=== PATIENT | female | born 1960 | race Caucasian/White ===

== ENCOUNTER 2021-05-03 14:01 | Inpatient (IN) | payer OTHER, SELFPAY ==
--- NOTE | 2021-05-03 14:09 | ED_ITS ---
HPI - Psych General Chief Complaint: Psychiatric Symptoms Stated Complaint: HI/SI Time Seen by Provider: 05/03/21 14:09 Source: patient and EMS Mode of arrival: EMS Limitations: no limitations History of Present Illness MD complaint: suicidal ideation and feels depressed Onset (ago): week(s) Duration: constant and getting worse History of same: Yes Relieving factors: none Exacerbating factors: other (not sleeping) Associated psychiatric symptoms: depression and suicidal ideation Associated symptoms: other (states she was talking to her mother) Treatments prior to arrival: placed on mental health hold If self harm: admits thoughts of self harm Related Data Home Medications Medication Instructions Recorded Confirmed omeprazole 20 mg capsule,delayed 20 mg PO BID 07/28/20 release bupropion HCl 100 mg tablet,12 hr 100 mg PO QAM 09/01/20 sustained-release clonidine HCl 0.1 mg tablet mg PO 09/01/20 duloxetine 60 mg capsule,delayed 120 mg PO DAILY 09/01/20 release ibuprofen 800 mg tablet 800 mg PO Q8H PRN 09/01/20 Previous Rx's Medication Instructions Recorded clotrimazole-betamethasone 1 1 appl TOPICAL BID 15 Days #15 g 09/01/20 %-0.05 % topical cream gabapentin 800 mg tablet 800 mg PO TID #90 tab 03/18/21 lisinopril 20 1 tab PO DAILY #30 tab 03/18/21 mg-hydrochlorothiazide 12.5 mg tablet omeprazole 20 mg capsule,delayed 20 mg PO BID #60 cap 03/18/21 release sennosides 8.6 mg tablet (Mirta-elizabeth) 17.2 mg PO BEDTIME #60 tab 03/18/21 zolpidem 10 mg tablet 10 mg PO BEDTIME PRN 30 Days #30 03/18/21 tab aspirin 81 mg tablet,delayed 81 mg PO DAILY #90 tab 04/21/21 release Allergies Allergy/AdvReac Type Severity Reaction Status Date / Time duloxetine Allergy Severe anaphylaxis Verified 09/01/20 10:10 aspirin Allergy Unknown but can Verified 09/01/20 10:10 take ibuprofen pregabalin Allergy Unknown unknown Verified 09/01/20 10:10 Review of Systems Review of Systems: Constitutional : No Fever, No Chills ENT/Mouth : No Ear Pain, No Nasal Congestion, No sore throat Eyes: No Eye Pain, No Swelling, No Redness Cardiovascular : No Chest Pain, No SOB Respiratory : No Cough, No Sputum, No Dyspnea Gastrointestinal : No Nausea, No Vomiting, No Diarrhea, No Hematochezia, No Melena Genitourinary : No Dysuria, No Urinary Frequency, No Hematuria Musculoskeletal : No Myalgias Skin : No Skin Lesions, No rash Neuro : No Weakness, No Numbness, No Paresthesias, No Dizziness, No Headache Psych : positive Anxiety, positive Depression, positive SI no HI, pos vis hallucinations Heme/Lymph: No Lymphadenopathy Endocrine : No Polyuria, No Polydipsia All other systems reviewed and are negative [facility] Past Medical History Attestation statement: The following information was validated with the patient. Medical History Encounter for medication review GERD (gastroesophageal reflux disease) Hypertension Insomnia Intertrigo Surgical History History of endometrial ablation History of tubal ligation Family History Family History Father No problems noted. Mother No problems noted. Brother Congenital cardiomyopathy Sister Cardiomyopathy Social History Social History Alcohol intake: never Cigarettes Per Day: 10 Advance Directives: No Advance Directives Information Provided: No Physical Exam Vital Signs: Vital Signs: Last Vital Signs Temp 98.0 F 05/03/21 14:14 Pulse 89 05/03/21 14:14 Resp 16 05/03/21 14:14 BP 127/67 05/03/21 14:14 Pulse Ox 94 05/03/21 14:14 Body Mass Index 41.1 Appearance: Alert. Oriented X3. Anxious, tearful, mild acute distress. Eyes: Pupils equal, round and reactive to light. ENT: Pharynx normal. Neck: Normal inspection. Neck supple. CVS: Normal heart rate and rhythm. Pulses normal. Respiratory: No respiratory distress. Breath sounds normal. Abdomen: Soft and non-tender. Skin: Skin warm and dry. Normal skin color. Normal skin turgor. Extremities: No lower extremity edema. No calf ttp Neuro: Oriented X 3. No motor deficit. No sensory deficit. CN2-12 intact Psych: tearful, pos SI, no HI, states she saw her mom but she knows that's not real Course Course Course Narrative: vaccinated 3 months ago with Pfizer + COVID asymptomatic Physician observation started at 340pm Patient placed in physician observation because the patient needed more time to have BHN assessment given her mental health complaints. At the time observation was started the patient's vitals were stable, patient is alert and oriented much more calm, Neuro: nonfocal, CV RRR, Lungs clear signed out pending labs and BHN consult MDM - Psych MDM Narrative Medical decision making narrative: 60 yo female with hx of GERD, HTN, insomnia on ambien comes in with c/o SI and HI towards police officers, she notes she is not sleeping and then mentioned her mother was with her. At this time denies substance abuse. Will need labs, N consult Lab Data Labs: Lab Results 05/03/21 05/03/21 Range/Units 14:55 14:58 Urine Opiates Screen Not Detected (Not Detect) Urine Fentanyl Screen POSITIVE H (Not Detect) Ur Barbiturates Screen Not Detected (Not Detect) Ur Phencyclidine Scrn Not Detected (Not Detect) Ur Amphetamines Screen Not Detected (Not Detect) U Benzodiazepines Scrn Not Detected (Not Detect) Urine Cocaine Screen POSITIVE H (Not Detect) U Marijuana (THC) Screen Not Detected (Not Detect) COVID-19 (DAMON) Positive A (Negative) COVID-19 Clin Com See Note Discharge Plan Discharge Clinical Impression: COVID-19, Polysubstance abuse Depression Qualifiers: Depression Type: major depressive disorder Major depression recurrence: recurrent Active/Remission status: currently active Major depression episode severity: moderate Qualified Code(s): F33.1 - Major depressive disorder, recurrent, moderate Prescriptions: No Action omeprazole 20 mg capsule,delayed release(DR/EC) 20 mg PO BID RF: 0 zolpidem 10 mg tablet 10 mg PO BEDTIME PRN (Reason: insomnia) 30 Days Qty: 30 RF: 1 sennosides [Mirta-elizabeth] 8.6 mg tablet 17.2 mg PO BEDTIME Qty: 60 RF: 3 gabapentin 800 mg tablet 800 mg PO TID Qty: 90 RF: 1 lisinopril-hydrochlorothiazide 20-12.5 mg tablet 1 tab PO DAILY Qty: 30 RF: 1 omeprazole 20 mg capsule,delayed release(DR/EC) 20 mg PO BID Qty: 60 RF: 1 aspirin 81 mg tablet,delayed release (DR/EC) 81 mg PO DAILY Qty: 90 RF: 0 duloxetine 60 mg capsule,delayed release(DR/EC) 120 mg PO DAILY RF: 0 bupropion HCl 100 mg tablet sustained-release 12 hr 100 mg PO QAM RF: 0 ibuprofen 800 mg tablet 800 mg PO Q8H PRNRF: 0 clonidine HCl 0.1 mg tablet PO RF: 0 clotrimazole-betamethasone 1-0.05 % cream 1 appl topical BID 15 Days Qty: 15 RF: 0
[2021-05-03 14:14] VITALS: BP 127/67; BP 190/110; PULSE 89; PULSE 95; RESP 16; TEMP 36.7; O2SAT 94; O2SAT 97; BMI 41.1
--- NOTE | 2021-05-03 14:41 | PC.NURSE ---
pt states that she has had the [employer] vaccine during triage.
--- NOTE | 2021-05-03 14:43 | PC.NURSE ---
pt here for crisis, si/hi, calm and cooperative w change management consultant, ambulates w steady gait.
[2021-05-03 15:11] LABS: COVID-19 Test Positive (Negative); IDNOW Serial# 08D9AD1C
[2021-05-03 15:27] LABS: Amphetamine Screen Urine Not Detected (Not Detect); Barbiturates, Urine Not Detected (Not Detect); Cannabinoid Screen Urine Not Detected (Not Detect); Cocaine Screen Urine POSITIVE (Not Detect); Fentanyl, urine POSITIVE (Not Detect); Opiate Screen Urine Not Detected (Not Detect); Phencyclidine Screen Urine Not Detected (Not Detect)
[2021-05-03 15:34] LABS: Benzodiazepines Screen Urine Not Detected (Not Detect)
[2021-05-03] MEDS: Acetaminophen 325 MG TABLET 650 MG PO ×2 (17:29→23:36)
[2021-05-03 18:42] VITALS: BP 102/65; PULSE 71; RESP 16; TEMP 36.9; O2SAT 95
[2021-05-03 18:49] LABS: MANUAL DIFF FLAG NO
[2021-05-03 18:53] LABS: Basophils Percent Auto 0.4 % (0-2); Eosinophils Absolute Auto 0.1 X10*3/uL (0.0-0.4); Eosinophils Percent Auto 1.2 % (0-4); Hematocrit 36.5 % (37-47); Hemoglobin 11.9 g/dl (12.0-16.0); Imm Gran Abs Auto 0.04 X10*3/uL (0.00-0.03); Imm Gran Pct Auto 0.5 % (0.0-0.4); Lymphocytes Absolute Auto 2.7 X10*3/uL (1.2-4.9); Lymphocytes Percent Auto 34.8 % (20-40); Mean Corpuscular HGB Conc 32.6 g/dl (31.0-35.0); Mean Corpuscular Hemoglobin 30.5 pg (27.0-33.0); Mean Corpuscular Volume 93.6 fL (80-98); Mean Platelet Volume 9.9 fL (9.4-12.3); Monocytes Absolute Auto 0.5 X10*3/uL (0.1-1.2); Monocytes Percent Auto 6.1 % (2-11); Neutrophils Absolute Auto 4.5 X10*3/uL (2.0-8.3); Platelet Count 238 X10*3/uL (160-400); Red Cell Distribution Width 13.6 % (11.0-16.0); White Blood Count 7.8 X10*3/uL (4.8-10.8)
[2021-05-03 19:11] LABS: Ethanol < 10 mg/dL
[2021-05-03 19:14] LABS: Alanine Aminotransferase 21 U/L (0-31); Albumin Level 3.7 g/dL (3.5-5.0); Alkaline Phosphatase 102 U/L (39-117); Anion Gap 11 (12-20); Aspartate Amino Transferase 22 U/L (5-31); Bilirubin Direct < 0.2 mg/dL (0.0-0.5); Bilirubin Total 0.2 mg/dL (0.0-1.0); Blood Urea Nitrogen 12 mg/dL (9-16); Calcium 8.9 mg/dL (8.4-10.2); Carbon Dioxide 29 mmol/L (22-29); Chloride 103 mmol/L (96-108); Creatinine Clr Calc Pharmacy 69.7; Estimated Glomerular Filt Rate 53; Glucose Random 105 mg/dL (60-115); Potassium 3.3 mmol/L (3.3-5.1); Sodium 140 mmol/L (135-145); Total Protein 6.2 g/dL (6.5-8.0)
--- NOTE | 2021-05-03 19:57 | PC.NURSE ---
this nurse spoke with Stevan at [facility] crisis to provide pt information for intake. [facility] aware that pt is covid positive and stated evaluation will most likely be done on zoom/video chat. [facility] has no other questions or concerns at this time.
[2021-05-03 20:03] VITALS: RESP 16
[2021-05-03 23:01] VITALS: BP 121/72; PULSE 68; RESP 16; TEMP 36.7; O2SAT 96
[2021-05-04] VITALS (9 sets, daily range): BP systolic 149–196; BP diastolic 80–111; PULSE 68–84; RESP 16–18; TEMP 36.7–37; O2SAT 97–99
[2021-05-04] MEDS: Zolpidem Tartrate 5 MG TABLET 10 MG PO ×2 (00:26→21:45)
--- NOTE | 2021-05-04 08:20 | PC.NURSE ---
SPOKE WITH N REGARDING PATIENT BEING SEEN, N WILL CALL BACK WITH MORE INFORMATION.
[2021-05-04] MEDS: lisinopriL 20 MG TABLET PO (10:40)
[2021-05-04] MEDS: buPROPion HCL 100 MG TABLET PO (10:42)
[2021-05-04] MEDS: hydroCHLOROthiazide 12.5 MG TABLET PO (10:43)
[2021-05-04] MEDS: Aspirin Enteric Coated 81 MG TABLET.DR PO (10:43)
[2021-05-04] MEDS: Gabapentin 400 MG CAPSULE 800 MG PO ×2 (10:43→21:01)
--- NOTE | 2021-05-04 13:14 | MHC.CARE ---
CARE Team conducts a statewide bedsearch, search is exhausted for today. CARE Team will follow up with a Mental Status assessment tomorrow. Consult was placed with psychiatry to have a medication evaluation.
--- NOTE | 2021-05-04 15:42 | HO.ADDICTCON ---
History of Present Illness Date of Service: 05/04/2021 Chief Complaint: HI/SI Reason for Consult: methadone dosing Requesting physician: Latanya Tierney Discussed with referring provider: Yes Sources of Information: chart reviewed and crisis/core team assessment reviewed Additional Sources of Information: [facility] HPI Narrative: Patient is a 60 year old female currently awaiting psychiatric admission for AH, SI and HI. patient has been in the ED for approx 24 hours, and this afternoon reported to RN that she did not receive her methadone--methadone is not patient's medication list, and due to time of day, unable to call OTP to confirm dose reported by patient (82 mg). Consult requested for recommendations. of note, patient COVID + and sleeping comfortably so information obtained from chart and RN Per RN, patient has not shown or reported any sx of withdrawal. UDS was positive for cocaine and fentanyl. Patient initially denied substance use, then acknowledged that she has used cocaine more recently. No mention of methadone. Past Psychiatric History: pending psychiatric admission. Please see CARE team eval for further details Review of Systems Review of Systems Yes Unobtainable due to mental status (patient asleep ) Diagnostics Vital Signs (24Hr): Vital Signs - 24 hr 05/03/21 18:42 05/03/21 20:03 05/03/21 23:01 Temperature 98.5 F 98.1 F Pulse Rate 71 68 Respiratory Rate 16 16 16 Blood Pressure 102/65 121/72 Pulse Oximetry 95 96 05/04/21 01:10 05/04/21 01:28 05/04/21 05:54 Temperature Pulse Rate Respiratory Rate 16 16 16 Blood Pressure Pulse Oximetry 05/04/21 08:00 05/04/21 10:40 Temperature Pulse Rate 68 Respiratory Rate 16 Blood Pressure 162/80 H Pulse Oximetry Body Mass Index 41.1 Labs Results: 05/03/21 18:40 05/03/21 18:40 Labs: Laboratory Results - last 48 hr 05/03/21 05/03/21 05/03/21 14:55 14:58 18:40 WBC 7.8 RBC 3.90 L Hgb 11.9 L Hct 36.5 L MCV 93.6 MCH 30.5 MCHC 32.6 RDW 13.6 Plt Count 238 MPV 9.9 Immature Gran % (Auto) 0.5 H Neut % (Auto) 57.0 Lymph % (Auto) 34.8 [place] % (Auto) 6.1 Eos % (Auto) 1.2 Baso % (Auto) 0.4 Lymph # (Auto) 2.7 [place] # (Auto) 0.5 Eos # (Auto) 0.1 Baso # (Auto) 0.0 Abs Immat Gran (auto) 0.04 H Absolute Neuts (auto) 4.5 Absolute Nucleated RBC 0.000 Nucleated RBC % (auto) 0.0 Sodium Potassium Chloride Carbon Dioxide Anion Gap BUN Creatinine Estim Creat Clear Calc Estimated GFR Random Glucose Calcium Total Bilirubin Direct Bilirubin AST ALT Alkaline Phosphatase Total Protein Albumin Urine Opiates Screen Not Detected Urine Fentanyl Screen POSITIVE H Ur Barbiturates Screen Not Detected Ur Phencyclidine Scrn Not Detected Ur Amphetamines Screen Not Detected U Benzodiazepines Scrn Not Detected Urine Cocaine Screen POSITIVE H U Marijuana (THC) Screen Not Detected Ethyl Alcohol COVID-19 (DAMON) Positive A COVID-19 [employer] Com See Note 05/03/21 05/03/21 18:40 18:40 WBC RBC Hgb Hct MCV MCH MCHC RDW Plt Count MPV Immature Gran % (Auto) Neut % (Auto) Lymph % (Auto) [place] % (Auto) Eos % (Auto) Baso % (Auto) Lymph # (Auto) [place] # (Auto) Eos # (Auto) Baso # (Auto) Abs Immat Gran (auto) Absolute Neuts (auto) Absolute Nucleated RBC Nucleated RBC % (auto) Sodium 140 Potassium 3.3 Chloride 103 Carbon Dioxide 29 Anion Gap 11 L BUN 12 Creatinine 1.06 Estim Creat Clear Calc 69.7 Estimated GFR 53 Random Glucose 105 Calcium 8.9 Total Bilirubin 0.2 Direct Bilirubin < 0.2 AST 22 ALT 21 Alkaline Phosphatase 102 Total Protein 6.2 L Albumin 3.7 Urine Opiates Screen Urine Fentanyl Screen Ur Barbiturates Screen Ur Phencyclidine Scrn Ur Amphetamines Screen U Benzodiazepines Scrn Urine Cocaine Screen U Marijuana (THC) Screen Ethyl Alcohol < 10 COVID-19 (DAMON) COVID-19 Clin Com Mental Status Exam Mental Status Exam Narrative: patient asleep Medications Medications Current Medications Generic Name Dose Route Start Last Admin Trade Name Freq PRN Reason Stop Dose Admin Aspirin 81 mg 05/04/21 09:00 05/04/21 10:43 Aspirin Enteric Coated 81 Mg Tablet. PO 81 mg DAILY ZOHREH Administration Bupropion HCl 100 mg 05/04/21 09:00 05/04/21 10:42 Bupropion Hcl 100 Mg Tablet PO 100 mg DAILY ZOHREH Administration Gabapentin 800 mg 05/04/21 00:15 05/04/21 10:43 Gabapentin 400 Mg Capsule PO 800 mg TID ZOHREH Administration Hydrochlorothiazide 12.5 mg 05/04/21 09:00 05/04/21 10:43 Hydrochlorothiazide 12.5 Mg Tablet PO 12.5 mg DAILY ZOHREH Administration Ibuprofen 800 mg 05/04/21 00:08 Ibuprofen 800 Mg Tablet PO Q8H PRN Pain, Mild Lisinopril 20 mg 05/04/21 09:00 05/04/21 10:40 Lisinopril 20 Mg Tablet PO 20 mg DAILY ZOHREH Administration Non-Formulary Medication 1 appl 05/04/21 00:15 Clotrimazole-Betamethasone TOPICAL BID ZOHREH Zolpidem Tartrate 10 mg 05/04/21 00:08 05/04/21 00:26 Zolpidem Tartrate 5 Mg Tablet PO 10 mg BEDTIME PRN Administration insomnia Allergies Allergies Allergy/AdvReac Type Severity Reaction Status Date / Time duloxetine Allergy Severe anaphylaxis Verified 09/01/20 10:10 aspirin Allergy Unknown but can Verified 09/01/20 10:10 take ibuprofen pregabalin Allergy Unknown unknown Verified 09/01/20 10:10 Assessment & Plan Assessment & Plan (1) Depression: Qualifiers: Active/Remission status: currently active Depression Type: major depressive disorder Major depression episode severity: moderate Major depression recurrence: recurrent Qualified Code(s): F33.1 - Major depressive disorder, recurrent, moderate Status: Acute Code(s): F32.9 - Major depressive disorder, single episode, unspecified Assessment and Plan: please monitor for withdrawal sx using the COWS. If patient begins to report sx, may administer methadone 10-15mg and re-eval in 4 hours and give another 10mg IF still needed. (total of 20-25mg) monitor for sedation RSRN will call [facility] in AM to verify dose 25 mins Greater than 50% of the session was spent on counseling and/or coordination of care PMFSH Past Medical History Medical History Encounter for medication review GERD (gastroesophageal reflux disease) Hypertension Insomnia Intertrigo Family History Family History Father No problems noted. Mother No problems noted. Brother Congenital cardiomyopathy Sister Cardiomyopathy Surgical History Surgical History History of endometrial ablation History of tubal ligation Social History Social History Alcohol intake: never Cigarettes Per Day: 10 Advance Directives: No Advance Directives Information Provided: No Healthcare Proxy: No Guardian: No
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
[2021-05-04] MEDS: methADONE HCl 20 MG/2 ML ORAL.CONC 15 MG PO (18:57)
[2021-05-04] MEDS: cloNIDine HCL 0.1 MG TABLET PO (21:08)
[2021-05-04] MEDS: ARIPiprazole 5 MG TABLET PO (21:45)
--- NOTE | 2021-05-04 21:50 | PC.NURSE ---
This RN to bedside. Pt aaox4, calm and cooperative. Pt endorses thoughts of wishing she were , and thinking if she were to attempt to kill herself, she would use a gun which she could probably easily purchase in her neighborhood. Pt assured that she is safe in ED, pt expresses her appreciation. Pt medicated per MAR, requested her ambien for sleep and medicated with it. Pt offers no complaints of pain/discomfort. Pt remains with 1:1 sitter. Pt reports that she contacted a friend earlier in the day to go to her home and check on her dog, but she was unable to confirm if the person did this as their phone . This RN offers to get pt's phone for pt to contact said friend but pt reports well I'm sure he did it because I know he would, and I know he heard me. I just didn't get to hear back about how my dog is but it's no real emergency. That can definitely wait until tomorrow morning. Pt's belongings are in locker 12 per belongings sheet.
[2021-05-05] VITALS (8 sets, daily range): BP systolic 144–188; BP diastolic 70–119; PULSE 76–87; RESP 16–20; TEMP 36.6; O2SAT 96–97
--- NOTE | 2021-05-05 | ECG_ITS ---
Test Reason : POSITIVE FOR COCAINE Blood Pressure : / mmHG Vent. Rate : 077 BPM Atrial Rate : 077 BPM P-R Int : 180 ms QRS Dur : 082 ms QT Int : 404 ms P-R-T Axes : 058 -13 052 degrees QTc Int : 457 ms Normal sinus rhythm Nonspecific ST abnormality Abnormal ECG When compared with ECG of 14-MAR-2020 20:03, No significant change was found Referred By: Latanya Tierney Electronically Signed By:JOANNE MESSINA
--- NOTE | 2021-05-05 00:10 | PC.NURSE ---
Pt transferred from room 13 into room 2. Sitter at bedside.
--- NOTE | 2021-05-05 00:31 | PC.NURSE ---
Report given to Karma MCCALL
--- NOTE | 2021-05-05 06:11 | PC.NURSE ---
Sitter remains at bedside. Pt sleeping through the night without difficulty. Visible chest rise noted. Continue to monitor.
[2021-05-05] MEDS: buPROPion HCL 100 MG TABLET PO (09:25)
[2021-05-05] MEDS: DULoxetine HCl 60 MG CAPSULE.DR PO (09:25)
[2021-05-05] MEDS: ARIPiprazole 5 MG TABLET PO (09:25)
[2021-05-05] MEDS: Gabapentin 400 MG CAPSULE 800 MG PO ×3 (09:26→20:29)
[2021-05-05] MEDS: lisinopriL 20 MG TABLET PO (09:26)
[2021-05-05] MEDS: cloNIDine HCL 0.1 MG TABLET PO ×2 (09:28→20:27)
[2021-05-05] MEDS: Aspirin Enteric Coated 81 MG TABLET.DR PO (09:28)
[2021-05-05] MEDS: hydroCHLOROthiazide 12.5 MG TABLET PO (09:28)
--- NOTE | 2021-05-05 09:55 | MHC.RECOVRN ---
Methadone dose verified by t/w. Pt received 82 mg at [facility] on 05/02 and received 2 take homes. Provider aware.
[2021-05-05] MEDS: methADONE HCl 20 MG/2 ML ORAL.CONC 80 MG PO (11:26)
--- NOTE | 2021-05-05 15:58 | PC.NURSE ---
Second Admission Risk Assessment form done to add Risk Factor of Substance Abuse
[2021-05-05] MEDS: chlorproMAZINE HCl 25 MG TABLET 50 MG PO ×2 (16:36→20:29)
--- NOTE | 2021-05-05 17:12 | PC.NURSE ---
Pt admitted from [facility] after feeling unsafe and depressed. Pt felt as though someone was with her and mentioned her mother who is . Pt brought in by police via section 12. Pt tested positive in ED for COVID (vaccinated x 2 doses) but is aymptomatic. Pt also tested positive for Fentanyl and Cocaine but denies using either. Pt transferred to unit by Shira Lake RN, pt agrees to remain in her room. Pt states she understands the CV but will consider signing a 3 day notice as she doesn't feel it will be helpful for her to be here. Pt denies SI/HI upon admission. Admission paperwork and consents reviewed verbally with patient.
[2021-05-05] MEDS: Ibuprofen 800 MG TABLET PO (20:27)
[2021-05-05] MEDS: Zolpidem Tartrate 5 MG TABLET 10 MG PO (20:29)
[2021-05-06 02:00] VITALS: TEMP 36.8; O2SAT 97
[2021-05-06] MEDS: hydrOXYzine HCL 25 MG TABLET PO (02:25)
[2021-05-06] MEDS: traZODone HCL 50 MG TABLET PO (02:25)
[2021-05-06] MEDS: DULoxetine HCl 60 MG CAPSULE.DR PO (08:32)
[2021-05-06] MEDS: Gabapentin 400 MG CAPSULE 800 MG PO (08:32)
[2021-05-06] MEDS: Aspirin Enteric Coated 81 MG TABLET.DR PO (08:32)
[2021-05-06] MEDS: buPROPion HCL 100 MG TABLET PO (08:33)
[2021-05-06] MEDS: ARIPiprazole 5 MG TABLET PO (08:33)
[2021-05-06 08:40] VITALS: BP 118/64
[2021-05-06] MEDS: cloNIDine HCL 0.1 MG TABLET PO (08:40)
[2021-05-06] MEDS: lisinopriL 20 MG TABLET PO (08:40)
[2021-05-06] MEDS: methADONE HCl 20 MG/2 ML ORAL.CONC 80 MG PO (08:45)
[2021-05-06 10:14] VITALS: BP 118/64; TEMP 36.2
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
[2021-05-06 13:09] LABS: MANUAL DIFF FLAG NO
[2021-05-06 13:13] LABS: Basophils Percent Auto 0.3 % (0-2); Eosinophils Absolute Auto 0.1 X10*3/uL (0.0-0.4); Eosinophils Percent Auto 1.8 % (0-4); Hematocrit 39.4 % (37-47); Hemoglobin 12.8 g/dl (12.0-16.0); Imm Gran Abs Auto 0.05 X10*3/uL (0.00-0.03); Imm Gran Pct Auto 0.7 % (0.0-0.4); Lymphocytes Absolute Auto 2.1 X10*3/uL (1.2-4.9); Mean Corpuscular HGB Conc 32.5 g/dl (31.0-35.0); Mean Corpuscular Hemoglobin 30.2 pg (27.0-33.0); Mean Corpuscular Volume 92.9 fL (80-98); Mean Platelet Volume 10.2 fL (9.4-12.3); Monocytes Absolute Auto 0.3 X10*3/uL (0.1-1.2); Monocytes Percent Auto 4.9 % (2-11); Neutrophils Absolute Auto 4.1 X10*3/uL (2.0-8.3); Neutrophils Percent Auto 61.3 % (45-73); Platelet Count 247 X10*3/uL (160-400); Red Blood Count 4.24 X10*6/uL (4.20-5.50); Red Cell Distribution Width 13.7 % (11.0-16.0); White Blood Count 6.7 X10*3/uL (4.8-10.8)
[2021-05-06 13:21] LABS: D Dimer 216 NG/ML
[2021-05-06 14:03] LABS: Alanine Aminotransferase 19 U/L (0-31); Albumin Level 3.5 g/dL (3.5-5.0); Alkaline Phosphatase 88 U/L (39-117); Anion Gap 17 (12-20); Aspartate Amino Transferase 18 U/L (5-31); Bilirubin Total 0.3 mg/dL (0.0-1.0); Blood Urea Nitrogen 25 mg/dL (9-16); C Reactive Protein 0.63 mg/dL (< or = 0.50); Calcium 10.2 mg/dL (8.4-10.2); Carbon Dioxide 29 mmol/L (22-29); Chloride 103 mmol/L (96-108); Creatinine Clr Calc Pharmacy 50.6; Estimated Glomerular Filt Rate 37; Glucose Random 146 mg/dL (60-115); Lactate Dehydrogenase 164 U/L (122-220); Potassium 3.8 mmol/L (3.3-5.1); Sodium 145 mmol/L (135-145); Total Protein 5.8 g/dL (6.5-8.0)
[2021-05-06 14:07] LABS: Procalcitonin 0.02 ng/mL
[2021-05-06 15:13] LABS: Ferritin 40 ng/mL (10-250)
== END 2021-05-06 12:15 | disposition other institution (70) | DRG 751 ==
LOC: HO.ED 14:27 → HO.PADLT16 05-05 13:09
PROVIDERS: Family Medicine; Admitting Provider Psychiatry & Neurology Psychiatry; Emergency Provider Emergency Medicine; PCP Hospitalist; Visit Provider Psychiatry & Neurology Psychiatry
DX: F32.3 Major depressive disorder, single episode, severe with psychotic features (principal); U07.1 COVID-19; R45.851 Suicidal ideations; F14.20 Cocaine dependence, uncomplicated; F10.20 Alcohol dependence, uncomplicated; G47.00 Insomnia, unspecified; F11.20 Opioid dependence, uncomplicated; K21.9 Gastro-esophageal reflux disease without esophagitis; Z87.891 Personal history of nicotine dependence; Z88.6 Allergy status to analgesic agent; Z79.82 Long term (current) use of aspirin; Z79.899 Other long term (current) drug therapy
CPT/HCPCS: 36415; 80048; 80053; 80076; 80307; 82077; 82728; 83615; 84145; 85025; 85379; 86140; 87635; 93005; 99285

== ENCOUNTER 2021-05-06 12:39 | Inpatient (IN) | payer OTHER, SELFPAY ==
[2021-05-06] VITALS (7 sets, daily range): BP systolic 84–126; BP diastolic 50–65; PULSE 62–97; RESP 19–20; TEMP 36.4–37.2; O2SAT 95–98
--- NOTE | ~2021-05-06 | XR_ITS ---
EXAMINATION: XR CHEST CLINICAL INFORMATION: Covid 19. COMPARISON: None TECHNIQUE: Frontal view of the chest was obtained. FINDINGS: The lungs are well-expanded with lingular atelectasis. Rest of lungs are clear. The heart size and pulmonary vascularity is normal. No gross bony abnormality seen. XR/XR chest 1V IMPRESSION: Small lingular atelectasis.
--- NOTE | 2021-05-06 13:35 | PM.IMHP ---
History of Present Illness Date of Service: 05/06/21 Chief Complaint: hypoxia 60 yo M with HTN, depression with psychotic features, and severe cocaine/alcohol/opioid use disorder, on methadone, admitted to inpatient psychiatry unit on 05/04/21 on section 12 after found by police with SI with plan to kill herself with a gun and with visual and auditory hallucinations. Urine toxicology positive for fentanyl and cocaine. Patient was diagnosed with COVID-19 on 05/03/21 in the ED, despite having had 2 doses of the Pfizer vaccine in December. She has been feeling ill for weeks but doesn't really give a defined date as to when dyspnea and cough started, but she does complain of these symptoms now, along with fatigue. The ED physician noted that she was asymptomatic during evaluation on 05/03/21. Currently, she is in a private room at one end of the psychiatry unit. She was found to have SaO2 86% on RA this morning and thus we were called to assess the patient. I confirmed RA SaO2 of 86-87% and thus arranged for the patient to be transferred to our inpatient service. She denies fever or chest pain. Review of Systems Review of Systems: Yes all other systems are reviewed and are negative [facility] Medical History Encounter for medication review GERD (gastroesophageal reflux disease) Hypertension Insomnia Intertrigo Family History Father No problems noted. Mother No problems noted. Brother Congenital cardiomyopathy Sister Cardiomyopathy Surgical History History of endometrial ablation History of tubal ligation Social History Household Members: None Housing: Apartment Do you presently have visiting nurse or other home services: No Alcohol intake: never Patient Tobacco Use Status: Former Tobacco user Quit Date: 2 weeks ago Tobacco use type: Cigarette Cigarettes Per Day: 10 Patient Interested in Nicotine Replacement: No Patient Given Instructions on How to Stop Smoking: No Second Hand Smoke Exposure: No Use of substances other than those prescribed or required for medical reasons: No Substance Use Type: Crack/Cocaine and Opiates Currently Displaying Signs/Symptoms of Drug Intoxication Withdrawal: No Any prior treatment program specific to substance use: No Have you been hit, kicked, punched, or otherwise hurt by someone within the past year? If so, by whom?: No Do you feel safe in your current relationship?: No Current Relationship Is there a partner from a previous relationship who is making you feel unsafe now?: No Are you made to feel afraid or neglected: No Advance Directives: No Advance Directives Information Provided: Yes Do you have thoughts of harming others: None Do you have a plan to hurt others: No Plan Recently lost weight without trying: No Nutrition Risks: No Nutritional Risk Patient : No : No Poor oral hygiene: No service: No Sexual orientation: Did not discuss. Meds Allergies Allergy/AdvReac Type Severity Reaction Status Date / Time duloxetine Allergy Severe anaphylaxis Verified 09/01/20 10:10 aspirin Allergy Unknown but can Verified 09/01/20 10:10 take ibuprofen pregabalin Allergy Unknown unknown Verified 09/01/20 10:10 Active Medications: Current Medications Generic Name Dose Route Start Last Admin Trade Name Freq PRN Reason Stop Dose Admin Acetaminophen 650 mg 05/06/21 13:05 Acetaminophen 325 Mg Tablet PO Q6H PRN Pain, Mild (Pain Scale 1-3) Dexamethasone Sodium Phosphate 6 mg 05/06/21 13:30 Dexamethasone Sod Phosphate 4 Mg/Ml Vial IVPUSH 05/15/21 09:01 DAILY [facility] Enoxaparin Sodium 40 mg 05/06/21 14:00 Enoxaparin Sodium 40 Mg/0.4 Ml Syringe SUBCUT Q24H [facility] Ondansetron HCl 4 mg 05/06/21 13:05 Ondansetron Hcl 4 Mg/2 Ml Vial IVPUSH Q8H PRN Nausea and Vomiting Pharmacy Consult 1 each 05/06/21 13:10 Consult Rx Perform Med Rec MISCELLANE 05/06/21 13:11 STAT STA Sodium Chloride 3 ml 05/06/21 16:00 0.9 % Sodium Chloride Flush 3 Ml Syringe IVFLUSH [facility] Home Medications Medication Instructions Recorded Confirmed Last Taken Type bupropion HCl 100 mg tablet,12 hr 100 mg PO QAM 09/01/20 05/06/21 05/06/21 History sustained-release methadone 10 mg/mL oral 82 mg PO DAILY 05/05/21 05/06/21 05/06/21 History concentrate (Methadone Intensol) lisinopril 20 mg tablet 20 mg PO DAILY 05/06/21 05/06/21 05/06/21 History omeprazole 20 mg capsule,delayed 1 cap PO BID 05/06/21 05/06/21 Unknown History release Physical Exam Vital Signs and Narrative: Vital Signs: Last Vital Signs Temp 97.5 F 05/06/21 13:22 Pulse 62 05/06/21 13:22 Resp 20 05/06/21 13:22 BP 85/52 L 05/06/21 13:22 Pulse Ox 97 05/06/21 13:22 Gen: in no acute distress HEENT: sclera anicteric, moist mucus membranes Neck: supple Lungs: clear to auscultation bilaterally Heart: regular rate and rhythm, no murmurs Abd: soft, non-tender, non-distended Ext: no edema, somewhat cyanotic nailbeds Skin: warm/well-perfused Neuro: alert and oriented x3, no focal findings Psych: appropriate affect Results Labs CBC and Chem 7: 05/06/21 13:56 05/06/21 13:56 Labs: Laboratory Results WBC 7.6 X10*3/uL (4.8-10.8) 05/06/21 13:56 RBC 4.36 X10*6/uL (4.20-5.50) 05/06/21 13:56 Hgb 13.1 g/dl (12.0-16.0) 05/06/21 13:56 Hct 40.6 % (37-47) 05/06/21 13:56 MCV 93.1 fL (80-98) 05/06/21 13:56 MCH 30.0 pg (27.0-33.0) 05/06/21 13:56 MCHC 32.3 g/dl (31.0-35.0) 05/06/21 13:56 RDW 13.6 % (11.0-16.0) 05/06/21 13:56 Plt Count 262 X10*3/uL (160-400) 05/06/21 13:56 MPV 10.2 fL (9.4-12.3) 05/06/21 13:56 Immature Gran % (Auto) 0.7 % (0.0-0.4) H 05/06/21 13:56 Neut % (Auto) 62.6 % (45-73) 05/06/21 13:56 Lymph % (Auto) 29.6 % (20-40) 05/06/21 13:56 [place] % (Auto) 5.5 % (2-11) 05/06/21 13:56 Eos % (Auto) 1.3 % (0-4) 05/06/21 13:56 Baso % (Auto) 0.3 % (0-2) 05/06/21 13:56 Lymph # (Auto) 2.3 X10*3/uL (1.2-4.9) 05/06/21 13:56 [place] # (Auto) 0.4 X10*3/uL (0.1-1.2) 05/06/21 13:56 Eos # (Auto) 0.1 X10*3/uL (0.0-0.4) 05/06/21 13:56 Baso # (Auto) 0.0 X10*3/uL (0.0-0.2) 05/06/21 13:56 Abs Immat Gran (auto) 0.05 X10*3/uL (0.00-0.03) H 05/06/21 13:56 Absolute Neuts (auto) 4.8 X10*3/uL (2.0-8.3) 05/06/21 13:56 Absolute Nucleated RBC 0.000 X10*3/uL (0.0-0.012) 05/06/21 13:56 Nucleated RBC % (auto) 0.0 /100WBC (0.0-0.2) 05/06/21 13:56 D-Dimer < 200 NG/ML 05/06/21 13:56 Procalcitonin 0.02 ng/mL 05/06/21 13:56 Assessment and Plan (1) COVID-19: Status: Acute (2) Depression, psychotic: Status: Acute 60 yo M with HTN, depression with psychotic features, and severe cocaine/alcohol/opioid use disorder, on methadone, admitted to inpatient psychiatry unit on 05/04/21 on section 12 after threatening to kill herself with a gun, tested positive for COVID-19 in the ED 05/03/21 and subsequently developed dyspnea and cough and now hypoxia. Will admit to [facility] on isolation precautions and telemetry. # COVID-19 pneumonia - severe due to hypoxia. will start dexamethasone 6 mg/d x10d. will consult ID. check and trend inflamamtory markers. # acute hypoxic resp failure - supplemental O2, wean as tolerated, encourage awake proning # hypotension - asymptomatic. not septic. give fluid bolus and recheck BP. hold lisinopril. # HTN - hold lisinopril # depression with psychotic features - continue aripiprazole, clonidine, trazodone, bupropion, clonidine, duloxetine - sitter due to SI # cocaine/alcohol/opioid use disorder - continue gabapentin, methadone # VTE ppx - LMWH # code - FULL Quality Stroke Does the patient have a stroke diagnosis?: No VTE Prior VTE?: No VTE Risk Level:: Medical - moderate - high VTE Device Contraindication: N/A - Device Ordered VTE Drug Contraindication: N/A - Med Ordered
[2021-05-06] MEDS: dexAMETHasone sod phosphate 4 MG/ML VIAL 6 MG IVPUSH (13:44)
[2021-05-06] MEDS: Enoxaparin Sodium 40 MG/0.4 ML SYRINGE SUBCUT (13:44)
[2021-05-06] MEDS: 0.9 % Sodium Chloride Flush 3 ML SYRINGE IVFLUSH ×2 (13:44→21:27)
[2021-05-06 13:59] LABS: MANUAL DIFF FLAG NO
[2021-05-06 14:10] LABS: Basophils Percent Auto 0.3 % (0-2); Eosinophils Absolute Auto 0.1 X10*3/uL (0.0-0.4); Eosinophils Percent Auto 1.3 % (0-4); Hematocrit 40.6 % (37-47); Hemoglobin 13.1 g/dl (12.0-16.0); Imm Gran Abs Auto 0.05 X10*3/uL (0.00-0.03); Imm Gran Pct Auto 0.7 % (0.0-0.4); Lymphocytes Absolute Auto 2.3 X10*3/uL (1.2-4.9); Lymphocytes Percent Auto 29.6 % (20-40); Mean Corpuscular HGB Conc 32.3 g/dl (31.0-35.0); Mean Corpuscular Volume 93.1 fL (80-98); Mean Platelet Volume 10.2 fL (9.4-12.3); Monocytes Absolute Auto 0.4 X10*3/uL (0.1-1.2); Monocytes Percent Auto 5.5 % (2-11); Neutrophils Absolute Auto 4.8 X10*3/uL (2.0-8.3); Neutrophils Percent Auto 62.6 % (45-73); Platelet Count 262 X10*3/uL (160-400); Red Blood Count 4.36 X10*6/uL (4.20-5.50); Red Cell Distribution Width 13.6 % (11.0-16.0); White Blood Count 7.6 X10*3/uL (4.8-10.8)
[2021-05-06 14:14] LABS: D Dimer < 200 NG/ML
--- NOTE | 2021-05-06 14:37 | PHA.MEDREC ---
Pharmacy Consult ? Medication Reconciliation Pharmacy has completed the medication reconciliation. Med rec done and annotated with dose changes/PRN orders from time on M1
[2021-05-06 14:52] LABS: Procalcitonin 0.02 ng/mL
[2021-05-06 14:55] LABS: Alanine Aminotransferase 22 U/L (0-31); Albumin Level 3.7 g/dL (3.5-5.0); Alkaline Phosphatase 95 U/L (39-117); Anion Gap 14 (12-20); Aspartate Amino Transferase 20 U/L (5-31); Bilirubin Total 0.3 mg/dL (0.0-1.0); Blood Urea Nitrogen 25 mg/dL (9-16); C Reactive Protein 0.66 mg/dL (< or = 0.50); Calcium 10.3 mg/dL (8.4-10.2); Carbon Dioxide 31 mmol/L (22-29); Chloride 103 mmol/L (96-108); Estimated Glomerular Filt Rate 39; Glucose Random 139 mg/dL (60-115); Potassium 3.7 mmol/L (3.3-5.1); Sodium 144 mmol/L (135-145); Total Protein 6.2 g/dL (6.5-8.0)
[2021-05-06] MEDS: 0.9 % Sodium Chloride 1,000 ML 999 ML IV (15:11)
[2021-05-06 15:12] LABS: Ferritin 42 ng/mL (10-250)
[2021-05-06] MEDS: Omeprazole 20 MG CAPSULE.DR PO (15:14)
[2021-05-06] MEDS: Gabapentin 400 MG CAPSULE 800 MG PO ×2 (15:14→21:27)
[2021-05-06 15:23] LABS: Lactate Dehydrogenase 180 U/L (122-220)
--- NOTE | 2021-05-06 16:28 | W.PM.IDCN ---
History of Present Illness Data of Consult Service Date: 05/06/21 Requesting physician: Federica Bridges Primary Care Provider: Rosmery Norton NP HPI Reason for consult: COVID,hypoxia She presents to hospital with suicidal ideation and psychotic features. She has had COVID testing on admission 05/03 and was asymptomatic Apparently after this she developed shortness of breath and oxygen saturation 86% Her symptoms of fatigue myalgias have been 2 weeks She received Pfizer vaccine both doses in December Review of Systems Review of Systems: Yes all other systems are reviewed and are negative [facility] Past Medical History Medical History Encounter for medication review GERD (gastroesophageal reflux disease) Hypertension Insomnia Intertrigo Family History Family History Father No problems noted. Mother No problems noted. Brother Congenital cardiomyopathy Sister Cardiomyopathy Family history: reviewed and not pertinent Surgical History Surgical History History of endometrial ablation History of tubal ligation Social History Social History Household Members: None Housing: Apartment Do you presently have visiting nurse or other home services: No Alcohol intake: never Patient Tobacco Use Status: Former Tobacco user Quit Date: 2 weeks ago Tobacco use type: Cigarette Cigarettes Per Day: 10 Patient Interested in Nicotine Replacement: No Patient Given Instructions on How to Stop Smoking: No Second Hand Smoke Exposure: No Use of substances other than those prescribed or required for medical reasons: No Substance Use Type: Crack/Cocaine and Opiates Currently Displaying Signs/Symptoms of Drug Intoxication Withdrawal: No Any prior treatment program specific to substance use: No Have you been hit, kicked, punched, or otherwise hurt by someone within the past year? If so, by whom?: No Do you feel safe in your current relationship?: No Current Relationship Is there a partner from a previous relationship who is making you feel unsafe now?: No Are you made to feel afraid or neglected: No Advance Directives: No Advance Directives Information Provided: Yes Do you have thoughts of harming others: None Do you have a plan to hurt others: No Plan Recently lost weight without trying: No Nutrition Risks: No Nutritional Risk Patient : No : No Poor oral hygiene: No service: No Sexual orientation: Did not discuss. Meds Allergies Allergy/AdvReac Type Severity Reaction Status Date / Time duloxetine Allergy Severe anaphylaxis Verified 09/01/20 10:10 aspirin Allergy Unknown but can Verified 09/01/20 10:10 take ibuprofen pregabalin Allergy Unknown unknown Verified 09/01/20 10:10 Active Medications: Current Medications Generic Name Dose Route Start Last Admin Trade Name Freq PRN Reason Stop Dose Admin Acetaminophen 650 mg 05/06/21 13:05 Acetaminophen 325 Mg Tablet PO Q6H PRN Pain, Mild (Pain Scale 1-3) Aripiprazole 5 mg 05/07/21 09:00 Aripiprazole 5 Mg Tablet PO DAILY REPLACED BY [facility] Aspirin 81 mg 05/07/21 09:00 Aspirin Enteric Coated 81 Mg Tablet. PO DAILY REPLACED BY [facility] Bupropion HCl 100 mg 05/07/21 09:00 Bupropion Hcl 100 Mg Tablet PO DAILY REPLACED BY [facility] Chlorpromazine HCl 50 mg 05/06/21 14:40 Chlorpromazine Hcl 25 Mg Tablet PO Q4H PRN Anxiety Clonidine HCl 0.1 mg 05/06/21 14:40 Clonidine Hcl 0.1 Mg Tablet PO Q8H PRN anxiety, hyperarousal Protocol Clonidine HCl 0.1 mg 05/06/21 21:00 Clonidine Hcl 0.1 Mg Tablet PO BID REPLACED BY [facility] Protocol Dexamethasone Sodium Phosphate 6 mg 05/06/21 13:30 05/06/21 13:44 Dexamethasone Sod Phosphate 4 Mg/Ml Vial IVPUSH 05/15/21 09:01 6 mg DAILY [facility] Administration Duloxetine HCl 60 mg 05/07/21 09:00 Duloxetine Hcl 60 Mg Capsule. PO DAILY [facility] Enoxaparin Sodium 40 mg 05/06/21 14:00 05/06/21 13:44 Enoxaparin Sodium 40 Mg/0.4 Ml Syringe SUBCUT 40 mg Q24H [facility] Administration Gabapentin 800 mg 05/06/21 15:00 05/06/21 15:14 Gabapentin 400 Mg Capsule PO 800 mg TID [facility] Administration Hydroxyzine HCl 25 mg 05/06/21 14:40 Hydroxyzine Hcl 25 Mg Tablet PO BEDTIME PRN Anxiety Methadone HCl 80 mg 05/07/21 09:00 Methadone Hcl 20 Mg/2 Ml Oral.Conc PO DAILY REPLACED BY [facility] Nicotine Polacrilex 4 mg 05/06/21 14:40 Nicotine Polacrilex 2 Mg Gum BUCCAL Q2H PRN Nicotine Cravings Nystatin/Triamcinolone Acetonide 1 appl 05/06/21 21:00 Nystatin/Triamcinolone Cream 15 Gm Tube TOPICAL BID REPLACED BY [facility] Protocol Omeprazole 20 mg 05/06/21 16:30 05/06/21 15:14 Omeprazole 20 Mg Capsule.Dr PO 20 mg BID@0630,1630 REPLACED BY [facility] Administration Ondansetron HCl 4 mg 05/06/21 13:05 Ondansetron Hcl 4 Mg/2 Ml Vial IVPUSH Q8H PRN Nausea and Vomiting Sodium Chloride 3 ml 05/06/21 16:00 05/06/21 13:44 0.9 % Sodium Chloride Flush 3 Ml Syringe IVFLUSH 3 ml QSHIFT REPLACED BY [facility] Administration Trazodone HCl 50 mg 05/06/21 14:40 Trazodone Hcl 50 Mg Tablet PO BEDTIME PRN Insomnia Zolpidem Tartrate 5 mg 05/06/21 14:40 Zolpidem Tartrate 5 Mg Tablet PO BEDTIME PRN insomnia Home Medications Medication Instructions Recorded Confirmed Last Taken Type bupropion HCl 100 mg tablet,12 hr 100 mg PO QAM 09/01/20 05/06/21 05/06/21 History sustained-release methadone 10 mg/mL oral 82 mg PO DAILY 05/05/21 05/06/21 05/06/21 History concentrate (Methadone Intensol) lisinopril 20 mg tablet 20 mg PO DAILY 05/06/21 05/06/21 05/06/21 History omeprazole 20 mg capsule,delayed 1 cap PO BID 05/06/21 05/06/21 Unknown History release Physical Exam Vital Signs: Vital Signs: Last Vital Signs Temp 98.9 F 05/06/21 15:08 Pulse 70 05/06/21 15:08 Resp 20 05/06/21 13:22 BP 84/50 L 05/06/21 15:08 Pulse Ox 98 05/06/21 15:08 Const: General: cooperative HENMT: Head: Yes normal to inspection Resp: Other: 2 liters oxygen Effort & Inspection: normal respiratory effort Cardio: Rate: regular rate Rhythm: regular rhythm GI: Palpation (GI): nontender Results Labs CBC & Chem 7: 05/06/21 13:56 05/06/21 13:56 Labs: Short CBC 05/06/21 Range/Units 13:56 WBC 7.6 (4.8-10.8) X10*3/uL Hgb 13.1 (12.0-16.0) g/dl Hct 40.6 (37-47) % Plt Count 262 (160-400) X10*3/uL BMP 05/06/21 13:56 Sodium 144 Potassium 3.7 Chloride 103 Carbon Dioxide 31 H BUN 25 H Creatinine 1.40 Calcium 10.3 H Cardiac Enzymes 05/06/21 Range/Units 13:56 Total Creatine Kinase 74 (26-140) U/L Liver Function 05/06/21 Range/Units 13:56 Total Bilirubin 0.3 (0.0-1.0) mg/dL AST 20 (5-31) U/L ALT 22 (0-31) U/L Alkaline Phosphatase 95 (39-117) U/L Albumin 3.7 (3.5-5.0) g/dL Assessment and Plan (1) COVID-19: Status: Acute COVID with hypoxia She has been vaccinated Symptoms are two weeks Suggest Dexamethasone,may increase dose if needed Oxygen titrate to oxygen saturation 93% or above No Remdesivir since mildly symptomatic for weeks and no monoclonal antibodies either (2) Depression: Qualifiers: Active/Remission status: currently active Depression Type: major depressive disorder Major depression episode severity: moderate Major depression recurrence: recurrent Qualified Code(s): F33.1 - Major depressive disorder, recurrent, moderate Status: Acute
[2021-05-06] MEDS: Nystatin/Triamcinolone Cream 15 GM TUBE 1 APPL TOPICAL (21:26)
[2021-05-06] MEDS: cloNIDine HCL 0.1 MG TABLET PO (21:27)
[2021-05-06] MEDS: Zolpidem Tartrate 5 MG TABLET PO (21:40)
[2021-05-07] VITALS (8 sets, daily range): BP systolic 110–159; BP diastolic 66–98; PULSE 82–102; RESP 17–19; TEMP 36.2–37.1; O2SAT 94–98
[2021-05-07] MEDS: traZODone HCL 50 MG TABLET PO (00:11)
[2021-05-07] MEDS: Omeprazole 20 MG CAPSULE.DR PO ×2 (06:02→15:56)
--- NOTE | 2021-05-07 09:15 | MHC.CM.PN ---
CM spoke with Patient over the phone at her room extension- [id number](Covid+). Patient lives alone in, the [facility], and she is functionally independent. Patient [facility]. Patient's goal is to return home and [facility] has initiated and will follow fo0r dc planning. Patient states that her PCP is from [address] [place] [address] but because the doctor has changed, she cannot recall the PCP name.
[2021-05-07] MEDS: dexAMETHasone sod phosphate 4 MG/ML VIAL 6 MG IVPUSH (10:03)
[2021-05-07] MEDS: methADONE HCl 20 MG/2 ML ORAL.CONC 80 MG PO (10:03)
[2021-05-07] MEDS: buPROPion HCL 100 MG TABLET PO (10:04)
[2021-05-07] MEDS: Aspirin Enteric Coated 81 MG TABLET.DR PO (10:04)
[2021-05-07] MEDS: cloNIDine HCL 0.1 MG TABLET PO ×2 (10:04→21:46)
[2021-05-07] MEDS: 0.9 % Sodium Chloride Flush 3 ML SYRINGE IVFLUSH ×2 (10:04→15:57)
[2021-05-07] MEDS: DULoxetine HCl 60 MG CAPSULE.DR PO (10:04)
[2021-05-07] MEDS: Gabapentin 400 MG CAPSULE 800 MG PO ×3 (10:04→21:46)
[2021-05-07] MEDS: ARIPiprazole 5 MG TABLET PO (10:04)
--- NOTE | 2021-05-07 11:10 | P.PNIM_ITS ---
Subjective Subjective Date of Service: 05/07/21 Interval History: weaned off oxygen overnight dyspnea improved no chest pain denies SI Review of Systems Review of Systems: Yes all other systems are reviewed and are negative Physical Exam Vital Signs: Vital Signs: Last Vital Signs Temp 98 F 05/07/21 07:48 Pulse 90 05/07/21 10:04 Resp 18 05/07/21 07:48 BP 142/89 H 05/07/21 10:04 Pulse Ox 97 05/07/21 07:48 Gen: in no acute distress HEENT: sclera anicteric, moist mucus membranes Neck: supple Lungs: clear to auscultation bilaterally Heart: regular rate and rhythm, no murmurs Abd: soft, non-tender, non-distended Ext: no edema, somewhat cyanotic nailbeds Skin: warm/well-perfused Neuro: alert and oriented x3, no focal findings Psych: restricted affect Objective Data Current Medications Generic Name Dose Route Start Last Admin Trade Name Freq PRN Reason Stop Dose Admin Acetaminophen 650 mg 05/06/21 13:05 Acetaminophen 325 Mg Tablet PO Q6H PRN Pain, Mild (Pain Scale 1-3) Aripiprazole 5 mg 05/07/21 09:00 05/07/21 10:04 Aripiprazole 5 Mg Tablet PO 5 mg DAILY [facility] Administration Aspirin 81 mg 05/07/21 09:00 05/07/21 10:04 Aspirin Enteric Coated 81 Mg Tablet. PO 81 mg DAILY [facility] Administration Bupropion HCl 100 mg 05/07/21 09:00 05/07/21 10:04 Bupropion Hcl 100 Mg Tablet PO 100 mg DAILY [facility] Administration Chlorpromazine HCl 50 mg 05/06/21 14:40 Chlorpromazine Hcl 25 Mg Tablet PO Q4H PRN Anxiety Clonidine HCl 0.1 mg 05/06/21 14:40 Clonidine Hcl 0.1 Mg Tablet PO Q8H PRN anxiety, hyperarousal Protocol Clonidine HCl 0.1 mg 05/06/21 21:00 05/07/21 10:04 Clonidine Hcl 0.1 Mg Tablet PO 0.1 mg BID [facility] Administration Protocol Dexamethasone Sodium Phosphate 6 mg 05/06/21 13:30 05/07/21 10:03 Dexamethasone Sod Phosphate 4 Mg/Ml Vial IVPUSH 05/15/21 09:01 6 mg DAILY [facility] Administration Duloxetine HCl 60 mg 05/07/21 09:00 05/07/21 10:04 Duloxetine Hcl 60 Mg Capsule. PO 60 mg DAILY [facility] Administration Enoxaparin Sodium 40 mg 05/06/21 14:00 05/06/21 13:44 Enoxaparin Sodium 40 Mg/0.4 Ml Syringe SUBCUT 40 mg Q24H [facility] Administration Gabapentin 800 mg 05/06/21 15:00 05/07/21 10:04 Gabapentin 400 Mg Capsule PO 800 mg TID [facility] Administration Hydroxyzine HCl 25 mg 05/06/21 14:40 Hydroxyzine Hcl 25 Mg Tablet PO BEDTIME PRN Anxiety Methadone HCl 80 mg 05/07/21 09:00 05/07/21 10:03 Methadone Hcl 20 Mg/2 Ml Oral.Conc PO 80 mg DAILY [facility] Administration Nicotine Polacrilex 4 mg 05/06/21 14:40 Nicotine Polacrilex 2 Mg Gum BUCCAL Q2H PRN Nicotine Cravings Nystatin/Triamcinolone Acetonide 1 appl 05/06/21 21:00 05/07/21 10:05 Nystatin/Triamcinolone Cream 15 Gm Tube TOPICAL Not Given BID [facility] Protocol Omeprazole 20 mg 05/06/21 16:30 05/07/21 06:02 Omeprazole 20 Mg Capsule. PO 20 mg BID@0630,1630 [facility] Administration Ondansetron HCl 4 mg 05/06/21 13:05 Ondansetron Hcl 4 Mg/2 Ml Vial IVPUSH Q8H PRN Nausea and Vomiting Sodium Chloride 3 ml 05/06/21 16:00 05/07/21 10:04 0.9 % Sodium Chloride Flush 3 Ml Syringe IVFLUSH 3 ml QSHIFT [facility] Administration Trazodone HCl 50 mg 05/06/21 14:40 05/07/21 00:11 Trazodone Hcl 50 Mg Tablet PO 50 mg BEDTIME PRN Administration Insomnia Zolpidem Tartrate 5 mg 05/06/21 14:40 05/06/21 21:40 Zolpidem Tartrate 5 Mg Tablet PO 5 mg BEDTIME PRN Administration insomnia Labs CBC & Chem 7: 05/06/21 13:56 05/06/21 13:56 Labs: Laboratory Results - last 24 hr 05/06/21 05/06/21 05/06/21 13:56 13:56 13:56 MCV 93.1 MCH 30.0 MCHC 32.3 RDW 13.6 Plt Count 262 MPV 10.2 Immature Gran % (Auto) 0.7 H Neut % (Auto) 62.6 Lymph % (Auto) 29.6 Harvey % (Auto) 5.5 Eos % (Auto) 1.3 Baso % (Auto) 0.3 Lymph # (Auto) 2.3 Harvey # (Auto) 0.4 Eos # (Auto) 0.1 Baso # (Auto) 0.0 Abs Immat Gran (auto) 0.05 H Absolute Neuts (auto) 4.8 Absolute Nucleated RBC 0.000 Nucleated RBC % (auto) 0.0 D-Dimer < 200 Anion Gap 14 Estim Creat Clear Calc TNP Estimated GFR 39 Random Glucose 139 H Calcium 10.3 H Ferritin 42 Total Bilirubin 0.3 AST 20 ALT 22 Alkaline Phosphatase 95 Lactate Dehydrogenase 180 Total Creatine Kinase 74 C-Reactive Protein 0.66 H Total Protein 6.2 L Albumin 3.7 Procalcitonin 05/06/21 13:56 MCV MCH MCHC RDW Plt Count MPV Immature Gran % (Auto) Neut % (Auto) Lymph % (Auto) Harvey % (Auto) Eos % (Auto) Baso % (Auto) Lymph # (Auto) Harvey # (Auto) Eos # (Auto) Baso # (Auto) Abs Immat Gran (auto) Absolute Neuts (auto) Absolute Nucleated RBC Nucleated RBC % (auto) D-Dimer Anion Gap Estim Creat Clear Calc Estimated GFR Random Glucose Calcium Ferritin Total Bilirubin AST ALT Alkaline Phosphatase Lactate Dehydrogenase Total Creatine Kinase C-Reactive Protein Total Protein Albumin Procalcitonin 0.02 Assessment and Plan (1) COVID-19: Status: Acute (2) Polysubstance abuse: Status: Acute (3) Depression, psychotic: Status: Acute Assessment and Plan: hospital d#2 60 yo M with HTN, depression with psychotic features, and severe cocaine/alcohol/opioid use disorder, on methadone, admitted to inpatient psychiatry unit on 05/04/21 on section 12 after threatening to kill herself with a gun, tested positive for COVID-19 in the ED 05/03/21 and subsequently developed dyspnea and cough and then hypoxia, so transferred to hospitalist service. # breakthrough COVID-19 pneumonia - inflammatory markers low and pt previously vaccinated. dexamethasone d#10/22. ID consulted # acute hypoxic resp failure - weaned off O2 # hypotension - improved p fluid bolus. if worsening hypertension, will restart lisinopril # HTN - hold lisinopril # depression with psychotic features - continue aripiprazole, clonidine, trazodone, bupropion, clonidine, duloxetine - sitter due to SI # cocaine/alcohol/opioid use disorder - continue gabapentin, methadone # VTE ppx - LMWH # dispo - will need to continue inpatient psych once medically cleared Quality Stroke Does the patient have a stroke diagnosis?: No VTE Prior VTE?: No VTE Risk Level:: Medical - moderate - high VTE Device Contraindication: N/A - Device Ordered VTE Drug Contraindication: N/A - Med Ordered
--- NOTE | 2021-05-07 12:03 | MHC.CM.PN ---
Per ROUNDS discussion, Patient will likely return to [facility] Inpatient Psych at time of dc; CM will follow.
[2021-05-07] MEDS: Enoxaparin Sodium 40 MG/0.4 ML SYRINGE SUBCUT (15:57)
[2021-05-07] MEDS: Zolpidem Tartrate 5 MG TABLET PO (21:46)
[2021-05-07] MEDS: Nystatin/Triamcinolone Cream 15 GM TUBE 1 APPL TOPICAL (22:33)
[2021-05-08 03:42] VITALS: BP 119/74; PULSE 81; RESP 19; TEMP 36.7; O2SAT 97
[2021-05-08] MEDS: Omeprazole 20 MG CAPSULE.DR PO (05:48)
[2021-05-08 06:37] LABS: Hematocrit 37.3 % (37-47); Hemoglobin 12.1 g/dl (12.0-16.0); Mean Corpuscular HGB Conc 32.4 g/dl (31.0-35.0); Mean Corpuscular Hemoglobin 30.2 pg (27.0-33.0); Mean Platelet Volume 10.4 fL (9.4-12.3); Platelet Count 269 X10*3/uL (160-400); Red Blood Count 4.01 X10*6/uL (4.20-5.50); Red Cell Distribution Width 13.3 % (11.0-16.0); White Blood Count 16.1 X10*3/uL (4.8-10.8)
[2021-05-08 06:53] LABS: D Dimer < 200 NG/ML
[2021-05-08 07:19] LABS: Anion Gap 12 (12-20); Blood Urea Nitrogen 17 mg/dL (9-16); C Reactive Protein 0.27 mg/dL (< or = 0.50); Calcium 9.5 mg/dL (8.4-10.2); Carbon Dioxide 28 mmol/L (22-29); Chloride 105 mmol/L (96-108); Estimated Glomerular Filt Rate > 60; Glucose Random 180 mg/dL (60-115); Potassium 4.5 mmol/L (3.3-5.1); Sodium 140 mmol/L (135-145)
[2021-05-08 07:20] VITALS: BP 172/85; PULSE 82; RESP 18; TEMP 36.3; O2SAT 97
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
[2021-05-08 10:23] VITALS: BP 155/62; PULSE 82
[2021-05-08] MEDS: DULoxetine HCl 60 MG CAPSULE.DR PO (10:23)
[2021-05-08] MEDS: cloNIDine HCL 0.1 MG TABLET PO (10:23)
[2021-05-08] MEDS: methADONE HCl 20 MG/2 ML ORAL.CONC 80 MG PO (10:23)
[2021-05-08] MEDS: Gabapentin 400 MG CAPSULE 800 MG PO ×2 (10:23→15:27)
[2021-05-08] MEDS: buPROPion HCL 100 MG TABLET PO (10:23)
[2021-05-08] MEDS: Aspirin Enteric Coated 81 MG TABLET.DR PO (10:24)
[2021-05-08] MEDS: dexAMETHasone 6 MG TABLET PO (10:24)
[2021-05-08] MEDS: ARIPiprazole 5 MG TABLET PO (10:24)
--- NOTE | 2021-05-08 10:53 | PM.DS ---
DS: Providers Provider Date of Service: 05/08/21 Date of admission: 05/06/21 12:39 Primary care physician: Rosmery Norton NP Consults: 05/06/21 13:10 Consult to Infectious Diseases Routine Consulting Provider: Pretty Segovia Reason for consultation: Covid-19 from psychiatry unit 05/08/21 08:18 Consult to Psychiatry Routine Consulting Provider: Psych Covering Reason for consultation: came from inpt psych, SI, medically cleared, COVID 05/08/21 10:39 Consult to Care Team Routine Comment: Reason for consultation: ensure she has some follow up mental health appointments in place DS: Diagnosis Discharge Diagnosis (1) COVID-19: Status: Acute (2) Polysubstance abuse: Status: Acute (3) Depression, psychotic: Status: Acute (4) Acute kidney failure: Status: Acute (5) Hypotension: Status: Acute DS: Medications Discharge Medications Home Medications: Home Medications Medication Instructions Recorded Confirmed bupropion HCl 100 mg tablet,12 hr 100 mg PO QAM 09/01/20 05/06/21 sustained-release methadone 10 mg/mL oral 82 mg PO DAILY 05/05/21 05/06/21 concentrate (Methadone Intensol) lisinopril 20 mg tablet 20 mg PO DAILY 05/06/21 05/06/21 omeprazole 20 mg capsule,delayed 1 cap PO BID 05/06/21 05/06/21 release Previous Rx's Medication Instructions Recorded gabapentin 800 mg tablet 800 mg PO TID #90 tab 03/18/21 zolpidem 10 mg tablet 10 mg PO BEDTIME PRN 30 Days #30 03/18/21 tab aspirin 81 mg tablet,delayed 81 mg PO DAILY #90 tab 04/21/21 release aripiprazole 5 mg tablet (Abilify) 5 mg PO DAILY #0 tab 05/06/21 chlorpromazine 25 mg tablet 50 mg PO Q4H PRN #0 tab 05/06/21 clonidine HCl 0.1 mg tablet 0.1 mg PO BID #0 tab 05/06/21 clonidine HCl 0.1 mg tablet 0.1 mg PO Q8H PRN #0 tab 05/06/21 duloxetine 60 mg capsule,delayed 60 mg PO DAILY #0 cap 05/06/21 release hydroxyzine HCl 25 mg tablet 25 mg PO BEDTIME PRN #0 tab 05/06/21 nicotine (polacrilex) 2 mg gum 4 mg BUCCAL Q2H PRN #0 ea 05/06/21 nystatin-triamcinolone 100,000 1 appl TOPICAL BID #0 g 05/06/21 unit/g-0.1 % topical cream trazodone 50 mg tablet 50 mg PO BEDTIME PRN #0 tab 05/06/21 dexamethasone 6 mg tablet 6 mg PO DAILY #7 tab 05/08/21 DS: Summary Hospital Course Hospital Course: from my admission H+P, 05/06/21: 60 yo M with HTN, depression with psychotic features, and severe cocaine/alcohol/opioid use disorder, on methadone, admitted to inpatient psychiatry unit on 05/04/21 on section 12 after found by police with SI with plan to kill herself with a gun and with visual and auditory hallucinations.? Urine toxicology positive for fentanyl and cocaine.? Patient was diagnosed with COVID-19 on 05/03/21 in the ED, despite having had 2 doses of the Pfizer vaccine in December.? She has been feeling ill for weeks but doesn't really give a defined date as to when dyspnea and cough started, but she does complain of these symptoms now, along with fatigue.? The ED physician noted that she was asymptomatic during evaluation on 05/03/21.? Currently, she is in a private room at one end of the psychiatry unit.? She was found to have SaO2 86% on RA this morning and thus we were called to assess the patient.? I confirmed RA SaO2 of 86-87% and thus arranged for the patient to be transferred to our inpatient service.? She denies fever or chest pain. The patient was admitted to the [facility] – [place], [place] on isolation precautions. She was given dexamethasone. She was weaned off of oxygen by hospital day #2. Inflammatory markers were reassuring. Initially, she was hypotensive without any symptoms, and had renal insufficiency. Lisinopril was held and she was given IV fluids. Serum creatinine normalized and blood pressure recovered to the point where she was hypertensive. She was discharged home to continue dexamethasone for 7 more days, and lisinopril was resumed on discharge. She should have basic metabolic panel drawn in 1 week. She should follow up with her primary care provider in 1 week. She was re-assessed by Psychiatry and they determined that the patient no longer needed inpatient level of care. Behavioral health follow-up was arranged by the CARE Team. Time Spent with Patient Time attestation: Total time spent providing and/or coordinating discharge services: Discharge coordination time: Greater than 30 minutes Quality: Stroke Does the patient have a stroke diagnosis?: No Physical Exam Vital Signs: Vital Signs: Last Vital Signs Temp 97.3 F 05/08/21 07:20 Pulse 82 05/08/21 10:23 Resp 18 05/08/21 07:20 BP 155/62 H 05/08/21 10:23 Pulse Ox 97 05/08/21 07:20 Gen: in no acute distress HEENT: sclera anicteric, moist mucus membranes Neck: supple Lungs: clear to auscultation bilaterally Heart: regular rate and rhythm, no murmurs Abd: soft, non-tender, non-distended Ext: no edema Skin: warm/well-perfused Neuro: alert and oriented x3, no focal findings Psych: appropriate affect DS: Data Data Completed and Pending Completed studies during hospitalization [Text1]: Laboratory Results WBC 16.1 X10*3/uL (4.8-10.8) H 05/08/21 05:35 RBC 4.01 X10*6/uL (4.20-5.50) L 05/08/21 05:35 Hgb 12.1 g/dl (12.0-16.0) 05/08/21 05:35 Hct 37.3 % (37-47) 05/08/21 05:35 MCV 93.0 fL (80-98) 05/08/21 05:35 MCH 30.2 pg (27.0-33.0) 05/08/21 05:35 MCHC 32.4 g/dl (31.0-35.0) 05/08/21 05:35 RDW 13.3 % (11.0-16.0) 05/08/21 05:35 Plt Count 269 X10*3/uL (160-400) 05/08/21 05:35 MPV 10.4 fL (9.4-12.3) 05/08/21 05:35 Immature Gran % (Auto) 0.7 % (0.0-0.4) H 05/06/21 13:56 Neut % (Auto) 62.6 % (45-73) 05/06/21 13:56 Lymph % (Auto) 29.6 % (20-40) 05/06/21 13:56 [place] % (Auto) 5.5 % (2-11) 05/06/21 13:56 Eos % (Auto) 1.3 % (0-4) 05/06/21 13:56 Baso % (Auto) 0.3 % (0-2) 05/06/21 13:56 Lymph # (Auto) 2.3 X10*3/uL (1.2-4.9) 05/06/21 13:56 [place] # (Auto) 0.4 X10*3/uL (0.1-1.2) 05/06/21 13:56 Eos # (Auto) 0.1 X10*3/uL (0.0-0.4) 05/06/21 13:56 Baso # (Auto) 0.0 X10*3/uL (0.0-0.2) 05/06/21 13:56 Abs Immat Gran (auto) 0.05 X10*3/uL (0.00-0.03) H 05/06/21 13:56 Absolute Neuts (auto) 4.8 X10*3/uL (2.0-8.3) 05/06/21 13:56 Absolute Nucleated RBC 0.000 X10*3/uL (0.0-0.012) 05/08/21 05:35 Nucleated RBC % (auto) 0.0 /100WBC (0.0-0.2) 05/08/21 05:35 D-Dimer < 200 NG/ML 05/08/21 05:35 Sodium 140 mmol/L (135-145) 05/08/21 05:35 Potassium 4.5 mmol/L (3.3-5.1) D 05/08/21 05:35 Chloride 105 mmol/L (96-108) 05/08/21 05:35 Carbon Dioxide 28 mmol/L (22-29) 05/08/21 05:35 Anion Gap 12 (12-20) 05/08/21 05:35 BUN 17 mg/dL (9-16) H 05/08/21 05:35 Creatinine 0.79 mg/dL (0.5-1.4) 05/08/21 05:35 Estim Creat Clear Calc TNP 05/08/21 05:35 Estimated GFR > 60 05/08/21 05:35 Random Glucose 180 mg/dL (60-115) H 05/08/21 05:35 Calcium 9.5 mg/dL (8.4-10.2) D 05/08/21 05:35 Ferritin 42 ng/mL (10-250) 05/06/21 13:56 Total Bilirubin 0.3 mg/dL (0.0-1.0) 05/06/21 13:56 AST 20 U/L (5-31) 05/06/21 13:56 ALT 22 U/L (0-31) 05/06/21 13:56 Alkaline Phosphatase 95 U/L (39-117) 05/06/21 13:56 Lactate Dehydrogenase 180 U/L (122-220) 05/06/21 13:56 Total Creatine Kinase 74 U/L (26-140) 05/06/21 13:56 C-Reactive Protein 0.27 mg/dL (< or = 0.50) 05/08/21 05:35 Total Protein 6.2 g/dL (6.5-8.0) L 05/06/21 13:56 Albumin 3.7 g/dL (3.5-5.0) 05/06/21 13:56 Procalcitonin 0.02 ng/mL 05/06/21 13:56 Impressions Chest X-Ray 05/06/21 14:34 IMPRESSION: Small lingular atelectasis. Labs on day of discharge: Laboratory Results - last 24 hr 05/08/21 05/08/21 05/08/21 05:35 05:35 05:35 WBC 16.1 H RBC 4.01 L Hgb 12.1 Hct 37.3 MCV 93.0 MCH 30.2 MCHC 32.4 RDW 13.3 Plt Count 269 MPV 10.4 Absolute Nucleated RBC 0.000 Nucleated RBC % (auto) 0.0 D-Dimer < 200 Sodium 140 Potassium 4.5 D Chloride 105 Carbon Dioxide 28 Anion Gap 12 BUN 17 H Creatinine 0.79 Estim Creat Clear Calc TNP Estimated GFR > 60 Random Glucose 180 H Calcium 9.5 D C-Reactive Protein 0.27 Discharge Plan Discharge Patient Disposition: Home Health Service Discharge Diagnosis: COVID-19 pneumonia, depression with psychotic features Referrals: Rosmery Norton NP [Primary Care Provider] - 1 Week Discharge Medications: New dexamethasone 6 mg Tablet 6 mg PO DAILY Qty: 7 RF: 0 Continued zolpidem 10 mg tablet 10 mg PO BEDTIME PRN (Reason: insomnia) 30 Days Qty: 30 RF: 1 gabapentin 800 mg tablet 800 mg PO TID Qty: 90 RF: 1 aspirin 81 mg tablet,delayed release (DR/EC) 81 mg PO DAILY Qty: 90 RF: 0 methadone [Methadone Intensol] 10 mg/mL Concentrate 82 mg PO DAILY RF: 0 clonidine HCl 0.1 mg Tablet 0.1 mg PO Q8H PRN (Reason: anxiety, hyperarousal) Qty: 0 RF: 0 clonidine HCl 0.1 mg Tablet 0.1 mg PO BID Qty: 0 RF: 0 trazodone 50 mg Tablet 50 mg PO BEDTIME PRN (Reason: Insomnia) Qty: 0 RF: 0 nicotine (polacrilex) 2 mg Gum 4 mg buccal Q2H PRN (Reason: Nicotine Cravings) Qty: 0 RF: 0 chlorpromazine 25 mg Tablet 50 mg PO Q4H PRN (Reason: Anxiety) Qty: 0 RF: 0 nystatin-triamcinolone 100,000-0.1 unit/g-% Cream 1 appl topical BID Qty: 0 RF: 0 hydroxyzine HCl 25 mg Tablet 25 mg PO BEDTIME PRN (Reason: Anxiety) Qty: 0 RF: 0 aripiprazole [Abilify] 5 mg Tablet 5 mg PO DAILY Qty: 0 RF: 0 duloxetine 60 mg Capsule,Delayed Release(Dr/Ec) 60 mg PO DAILY Qty: 0 RF: 0 omeprazole 20 mg capsule,delayed release(DR/EC) 1 cap PO BID RF: 0 lisinopril 20 mg Tablet 20 mg PO DAILY RF: 0 bupropion HCl 100 mg tablet sustained-release 12 hr 100 mg PO QAM RF: 0 Discharge Orders: Discharge Order (Routine); Ordered 05/08/21 Ordered By: Federica Bridges Diet: advance to usual diet Activity on Discharge: As tolerated Stand Alone Forms: Patient Portal Discharge page Other Ambulatory Orders: Basic Metabolic Panel (Routine) Timeframe: 1 Week Facility: [facility] - Location: Laboratory Ordered By: Federica Bridges Care Plan Goals: maintain safety, recover from COVID infection, kidney health Health Concerns: depression with psychosis, COVID pneumonia, acute kidney injury/dehydration Plan of Treatment: medications as prescribed by psychiatrist; mental health appointments as coordinated by CARE Team for COVID pneumonia, take DEXAMETHASONE 6 mg daily for 7 more days; isolation for 10-20 days from onset of symptoms resume lisinopril; recheck basic metabolic panel [non-fasting] at lab in 1 week see your primary care provider in 1 week Assessment: as above Patient Instructions: COVID-19 (Coronavirus Disease 2019) (DC)
--- NOTE | 2021-05-08 12:01 | MHC.CM.PN ---
Patient has been medically cleared for dc to home today, Per MD, no services other than Care Team interventions/recommendations. Per Care Team/Heather, Patient does nor require a return to Inpatient Psych.
--- NOTE | 2021-05-08 14:28 | MHC.CM.PN ---
Patient will return home today at 4PM, via [facility] (COVID POIT[facility]).
--- NOTE | 2021-05-08 14:54 | MHC.CARE ---
CARE Team was contacted by RN at 2pm that appointment regarding discharge plan was not completed. CARE Team coordinated with [facility]. Plan for [facility] to follow up with Pt post discharge regarding appointments.
[2021-05-08 15:17] VITALS: BP 156/89; PULSE 95; RESP 20; TEMP 36.7; O2SAT 94
== END 2021-05-08 15:50 | disposition home or self-care (01) | DRG 137 ==
PROVIDERS: Admitting Provider Family Medicine; PCP Hospitalist; Visit Provider Family Medicine
DX: U07.1 COVID-19 (principal); J96.01 Acute respiratory failure with hypoxia; J12.82 Pneumonia due to coronavirus disease 2019; F32.3 Major depressive disorder, single episode, severe with psychotic features; R45.851 Suicidal ideations; E66.3 Overweight; N17.9 Acute kidney failure, unspecified; E86.0 Dehydration; F11.20 Opioid dependence, uncomplicated; F10.20 Alcohol dependence, uncomplicated; F17.210 Nicotine dependence, cigarettes, uncomplicated; K21.9 Gastro-esophageal reflux disease without esophagitis; Z71.6 Tobacco abuse counseling; Z88.6 Allergy status to analgesic agent; Z79.82 Long term (current) use of aspirin; Z79.899 Other long term (current) drug therapy
CPT/HCPCS: 36415; 71045; 80048; 80053; 82550; 82728; 83615; 84145; 85025; 85027; 85379; 86140; J1100; J1650; J8540

== ENCOUNTER 2021-08-16 12:54 | Emergency (ER) | payer OTHER, SELFPAY ==
[2021-08-16] VITALS (7 sets, daily range): BP systolic 149–210; BP diastolic 85–138; PULSE 71–88; RESP 16–17; TEMP 36.3–36.6; O2SAT 98–99; BMI 32.9
--- NOTE | 2021-08-16 | ECG_ITS ---
Test Reason : CP Blood Pressure : / mmHG Vent. Rate : 086 BPM Atrial Rate : 086 BPM P-R Int : 174 ms QRS Dur : 068 ms QT Int : 378 ms P-R-T Axes : 056 -18 028 degrees QTc Int : 452 ms Normal sinus rhythm Nonspecific ST abnormality Abnormal ECG When compared with ECG of 05-MAY-2021 13:04, No significant change was found Referred By: Generic ED Physician Electronically Signed By:Franky Agudelo
--- NOTE | ~2021-08-16 | XR_ITS ---
EXAMINATION: XR CHEST CLINICAL INFORMATION: Chest pain COMPARISON: May 06, 2021 TECHNIQUE: AP portable view of the chest was obtained. FINDINGS: No significant abnormality is noted involving the heart, lungs, mediastinum, bony thorax or soft tissues. Prominent left pericardial fat pad present. XR/XR chest 1V IMPRESSION: No acute disease.
--- NOTE | ~2021-08-16 | CT_ITS ---
EXAMINATION: CT HEAD WITHOUT CONTRAST CLINICAL INFORMATION: Blurry vision. Recent stroke. COMPARISON: March 21, 2020 TECHNIQUE: Contiguous axial imaging was performed from the skull base to vertex without intravenous administration of contrast. This CT examination was performed using dose optimization techniques as appropriate, variously including the following: *Automated exposure control *Adjustment of mA and/or kV according to patient size (this includes techniques or standardized protocols for targeted exams where dose is matched to indication/reason for exam; i.e. extremities or head) *Use of iterative reconstruction technique DLP: 660 mGy-cm FINDINGS: There is no evidence of acute intracranial hemorrhage or territorial infarction. No abnormal mass effect or midline shift is seen. You to white matter differentiation is well preserved. No extra-axial fluid collections are identified. The ventricles are normal in size. There is again noted to be an old right parietal infarct as well as diminished density seen along the right extreme capsule. No new region of disease identified. The osseous structures and soft tissues are normal. The mastoid air cells and visualized portions of the paranasal sinuses are well aerated. A mucous retention cyst within the left maxillary sinus is present. CT/CT head/brain wo con IMPRESSION: No acute intracranial pathology. Old right parietal and right basal ganglia ischemic event without significant change from study of March 21, 2020
--- NOTE | ~2021-08-16 | CT_ITS ---
EXAMINATION: CT ANGIOGRAM OF THE CHEST WITH AND WITHOUT CONTRAST (CT PULMONARY ANGIOGRAM FOR PE) CLINICAL INFORMATION: Reason for Exam SOB, CP, elevated ddimer COMPARISON: 03/27/2017 TECHNIQUE: Prior to contrast administration, noncontrast localization images were obtained. Subsequently, multidetector volumetric imaging was performed from the thoracic inlet to below the diaphragms following the administration of 65 mL Omnipaque 350 intravenous contrast. No contrast reaction reported Sagittal, coronal, and MIP oblique sagittal reformatted images were obtained on the CT workstation, uploaded to PACS, and reviewed. This CT examination was performed using dose optimization techniques as appropriate, variously including the following: *Automated exposure control *Adjustment of mA and/or kV according to patient size (this includes techniques or standardized protocols for targeted exams where dose is matched to indication/reason for exam; i.e. extremities or head) *Use of iterative reconstruction technique Total exam dose-length product 351 mGy-cm FINDINGS: QUALITY OF STUDY/CONTRAST BOLUS: Satisfactory. PULMONARY ARTERIES: No central or segmental pulmonary emboli. THORACIC AORTA: No aneurysm or dissection. LUNG: No focal consolidation, nodules or masses. PLEURA: No pleural effusion or pneumothorax. MEDIASTINUM: Normal heart size. No pericardial effusion. No hilar or mediastinal lymphadenopathy. Coronary artery calcifications. No evidence of septal bowing or right heart strain. CHEST WALL/AXILLA: No axillary or internal mammary lymphadenopathy. OSSEOUS STRUCTURES: No acute or suspicious osseous abnormality. UPPER ABDOMEN: There is a vague 1.1 cm hypodensity within the central liver, similar to the prior study but slightly larger, previously measuring 0.7 cm in 2017. This most likely represents a small cyst and is of questionable clinical significance. No reflux of contrast into the hepatic veins to suggest elevated right heart pressures. CT/CT angio chest PE protocol IMPRESSION: No CT evidence of pulmonary embolism or acute pulmonary process. Coronary artery calcifications. VTE: negative
--- NOTE | 2021-08-16 14:52 | ED_ITS ---
HPI - Chest Pain General Chief Complaint: Chest Pain Stated Complaint: cp, blurry vision Time Seen by Provider: 08/16/21 14:50 Source: patient Mode of arrival: ambulatory Limitations: physical limitation (Walks with cane) History of Present Illness HPI narrative: 60-year-old female with a past medical history of lacunar infarct, hypertension, depression, and PRES syndrome, presents with chest pain that started at noon yesterday. The chest pain is intermittent and is on her left side. It radiates to her left arm. States if feels dull and crampy. She is nauseous, and she is short of breath. States she has been weak since she had a stroke 3 months ago, but she feels weaker today. She has had a headache, 4/10 since yesterday and the crown of her head. States she has worsening blurry vision today. Increased urination, no dysuria. No focal weakness. Concern for PRES syndrome, or hypertensive emergency, with blurry vision, hypertension, and headache. Related Data Home Medications Medication Instructions Recorded Confirmed lisinopril 20 mg tablet 20 mg PO DAILY 05/06/21 07/21/21 aripiprazole 10 mg tablet 10 mg PO DAILY 07/21/21 07/21/21 bupropion HCl 150 mg tablet,12 hr 150 mg PO DAILY 07/21/21 07/21/21 sustained-release hydrochlorothiazide 12.5 mg tablet 12.5 mg PO DAILY 07/21/21 07/21/21 methadone 10 mg/mL oral 55 mg PO DAILY ml 07/21/21 07/21/21 concentrate (Methadone Intensol) Previous Rx's Medication Instructions Recorded zolpidem 10 mg tablet 10 mg PO BEDTIME PRN 30 Days #30 07/20/21 tab aspirin 81 mg tablet,delayed 81 mg PO DAILY #90 tab 07/21/21 release atorvastatin 80 mg tablet 80 mg PO DAILY #90 tab 07/21/21 cholecalciferol (vitamin D3) 25 25 mcg PO DAILY #90 tab 07/21/21 mcg (1,000 unit) tablet clonidine HCl 0.1 mg tablet 0.1 mg PO Q8H PRN #60 tab 07/21/21 duloxetine 60 mg capsule,delayed 60 mg PO DAILY #30 cap 07/21/21 release gabapentin 300 mg capsule 300 mg PO TID #90 cap 07/21/21 nicotine (polacrilex) 2 mg gum 4 mg BUCCAL Q2H PRN #50 ea 07/21/21 nystatin-triamcinolone 100,000 1 appl TOPICAL BID #30 g 07/21/21 unit/g-0.1 % topical cream omeprazole 20 mg capsule,delayed 20 mg PO BID 30 Days #60 cap 07/21/21 release albuterol sulfate 90 mcg/actuation 2 puff INHALATION Q4-6H PRN #8.5 g 08/16/21 aerosol inhaler cephalexin 500 mg capsule 500 mg PO QID 7 Days #28 cap 08/16/21 ketorolac 10 mg tablet 10 mg PO TID 5 Days #15 tab 08/16/21 Allergies Allergy/AdvReac Type Severity Reaction Status Date / Time duloxetine Allergy Severe anaphylaxis Verified 08/16/21 13:01 aspirin Allergy Unknown but can Verified 08/16/21 13:01 take ibuprofen pregabalin Allergy Unknown unknown Verified 08/16/21 13:01 Review of Systems Constitutional: Constitutional: Denies body ache(s), Denies chills, Denies fatigue, Denies fever(s), Denies headache(s), Denies malaise and Reports weakness Eyes: Eyes: Reports blurry vision, Reports change in vision and Reports diplopia ENT: Denies vertigo, Denies dizziness, Denies otalgia, Denies headache(s), Denies mouth pain, Denies post nasal drip, Denies sinus pain, Denies sinus pressure, Denies sore throat and Denies throat swelling Cardiovascular: Cardiovascular: Reports chest pain, Denies syncope, Denies leg edema, Denies lightheadedness, Denies Loss of Consciousness, Denies palpitations and Reports dyspnea Respiratory: Respiratory: Denies chest congestion, Denies cough and Reports dyspnea Gastrointestinal: Gastrointestinal: Denies abdominal pain, Denies hematochezia, Denies constipation, Denies diarrhea, Reports nausea and Denies vomiting Musculoskeletal: Musculoskeletal: Reports no additional musculoskeletal com plaints Neurologic: Denies Abnormal speech present, Denies confusion, Denies vertigo, Denies dizziness, Denies syncope, Denies headache(s), Reports Sensory deficit (Neuro) and Reports weakness Psychiatric: Psychiatric: Denies anxiety, Denies confusion and Denies depression Endocrine: Endocrine: Denies fatigue and Denies palpitations Allergic/Immunologic: Allergic/Immunologic: Denies throat swelling PMFSH Past Medical History Medical History Depression, psychotic Encounter for medication review GERD (gastroesophageal reflux disease) Hypertension Insomnia Intertrigo Surgical History History of endometrial ablation History of tubal ligation Family History Family History Father No problems noted. Mother Mental health disorder Brother Congenital cardiomyopathy Sister Cardiomyopathy Other Substance use disorder Social History Social History Household Members: None Housing: Apartment Do you presently have visiting nurse or other home services: No Alcohol intake: never Patient Tobacco Use Status: Former Tobacco user Quit Date: 2 weeks ago Tobacco use type: Cigarette Cigarettes Per Day: 10 e-Cigarette/Vaping Use: Never Used Second Hand Smoke Exposure: No Substance Use Type: Crack/Cocaine and Opiates Advance Directives: No Advance Directives Information Provided: Yes Patient : No service: No Current occupational status: disabled Sexual orientation: Did not discuss. Cognitive needs: No Hearing needs: No Vision needs: Yes (Glasses) Physical Exam Vital Signs: Vital Signs: Last Vital Signs Temp 97.4 F 08/16/21 18:09 Pulse 73 08/16/21 18:09 Resp 16 08/16/21 18:09 BP 149/109 H 08/16/21 18:09 Pulse Ox 99 08/16/21 18:09 BMI result Body Mass Index 32.9 Const: General: alert and awake; No confusion or well groomed Nutritional Appearance: well nourished Orientation/consciousness: patient oriented x3 and No confusion Limitations: no limitations HENMT: Head: Yes normal to inspection, Yes normocephalic and Yes atraumatic Ears: hearing grossly normal bilaterally, external ears normal, TM's normal bilaterally and EAC's normal General nose exam: Normal external nose present Face and sinus: Yes normal facial exam and Yes sinuses nontender Mouth: Normal oral and palatal mucosa present Throat: Yes posterior oropharynx normal Eyes: Conjunctivae: conjunctivae normal Pupils: Equal, round and reactive pupils present EOM: EOMs intact bilaterally and No Nystagmus present Neck: Neck: Yes full ROM, Yes no lymphadenopathy and Yes supple Resp: Effort & Inspection: normal respiratory effort and able to speak in complete sentences Auscultation: clear to auscultation bilaterally, no crackles, no rales, no rhonchi and no wheezes Cardio: Rate: regular rate Rhythm: regular rhythm Heart sounds: S1 normal heart sound present and S2 normal heart sound present GI: Inspection: Yes normal to inspection Palpation (GI): Soft to palpation, nontender, no guarding and not rigid Percussion: Yes normal to percussion Auscultation: normal bowel sounds Skin: General skin exam: no rashes or lesions noted Neuro: Other: Pt 4/5 strength in right UE, says this is her baseline since her stroke. 5/5 strength all other extremities General: patient oriented x3 and No confusion Cranial nerves: Yes CN's II-XII intact bilaterally, Yes Facial sensation intact/muscles of mastication intact, Yes Equal, round and reactive pupils present, Yes Bilaterally intact EOM present, Yes Nystagmus not present, Yes Normal facial strength present, Yes Ability to bilaterally rotate head present, Yes Ability to bilaterally elevate shoulders present and No Nystagmus p resent Cognition (Neuro): normal cognition Speech: No Abnormal speech present Gait exam (Neuro): Normal gait present Motor exam (neuro): Pronator motor function not present Sensory Exam: Sensory deficit (Neuro) Deep tendon reflexes (DTR's): Right brachioradialis reflex intensity grade: 1+, Left brachioradialis reflex intensity grade: 1+, Right patellar reflex intensity grade: 2+ and Left patellar reflex intensity grade: 2+ Coordination: [id number] test normal and [id number] test normal Romberg Test: Negative Pupils: Normal pupillary reactivity/response: bilateral Extrem: General: Yes normal to inspection and Yes full ROM Psych: Appearance: grossly normal Affect: normal affect Attitude: cooperative Thought process: Normal thought process present Course Course Course Narrative: 60-year-old female with a history of stroke and PRES syndrome, who reports she has been taking her blood pressure medication, presents for chest pain and shortness of breath. On exam, patient is hypertensive, 210/138. Patient has normal visual alvarez by confrontation, intact EOMs, eyes are PERRLA, neurologically intact, no focal deficits on exam, patient has baseline right- sided upper extremity weakness. EKG shows normal sinus at a rate of 86. Troponin is undetectable Patient has an elevated leukocytosis of 16. D-dimer is elevated at 220. Creatinine is normal at 0.83, BUN 15. Chest x-ray is normal. Will obtain CTA as well as CT head. Reevaluation(s) Reevaluation #1: CT of head shows nothing acute, CTA shows no pulmonary embolism. Urine is positive for infection. on re-exam, patient feels better, her chest pain has completely resolved, her headache has resolved, her vision is better. Patient was given labetalol, BP now down to 163/92 However, there was an error, and CBC was not ordered. Ordered CBC now. Discussed with patient the plan to take her blood pressure daily, return resul ts, call her primary care provider for follow-up appointment in sure these results to the primary care provider. Discussed with patient that she must return to emergency room if she has worsening vision changes, headache, or any focal weakness. Will treat UTI with Keflex, prescribe short course of ketorolac for chest pain, prescribed albuterol for patient's shortness of breath. Signed the patient out to [facility], pending CBC results. MDM - Chest Pain Lab Data Result diagrams: 08/16/21 15:38 Labs: Lab Results 08/16/21 08/16/21 08/16/21 Range/Units 15:38 15:38 15:38 D-Dimer High Sensitivty 220 NG/ML Sodium 143 (135-145) mmol/L Potassium 4.5 (3.3-5.1) mmol/L Chloride 107 (96-108) mmol/L Carbon Dioxide 25 (22-29) mmol/L Anion Gap 16 (12-20) BUN 15 (9-16) mg/dL Creatinine 0.81 (0.5-1.4) mg/dL Estim Creat Clear Calc 74.9 Estimated GFR > 60 Random Glucose 83 (60-115) mg/dL Calcium 9.9 (8.4-10.2) mg/dL Total Bilirubin (0.0-1.0) mg/dL AST (5-31) U/L ALT (0-31) U/L Alkaline Phosphatase (39-117) U/L Troponin I High Sens < 3.5 (<3.5-17.0) ng/L Total Protein (6.5-8.0) g/dL Albumin (3.5-5.0) g/dL 08/16/21 Range/Units 15:38 D-Dimer High Sensitivty NG/ML Sodium 143 (135-145) mmol/L Potassium 4.2 (3.3-5.1) mmol/L Chloride 107 (96-108) mmol/L Carbon Dioxide 27 (22-29) mmol/L Anion Gap 13 (12-20) BUN 15 (9-16) mg/dL Creatinine 0.83 (0.5-1.4) mg/dL Estim Creat Clear Calc 73.1 Estimated GFR > 60 Random Glucose 82 (60-115) mg/dL Calcium 9.8 (8.4-10.2) mg/dL Total Bilirubin 0.5 (0.0-1.0) mg/dL AST 20 (5-31) U/L ALT 16 (0-31) U/L Alkaline Phosphatase 124 H D (39-117) U/L Troponin I High Sens (<3.5-17.0) ng/L Total Protein 6.5 (6.5-8.0) g/dL Albumin 4.0 (3.5-5.0) g/dL ECG Data ECG #1: Interpretation: Sinus at a rate of 86. P are 174, QRS 86, QTC is not prolonged at 4:52 a.m.. Patient has normal axis. No ST elevations or depressions. No T-wave inversions. Discharge Plan Discharge Clinical Impression: UTI (urinary tract infection) Qualifiers: Urinary tract infection type: acute cystitis Hematuria presence: without hematuria Qualified Code(s): N30.00 - Acute cystitis without hematuria Hypertension Qualifiers: Hypertension type: unspecified Qualified Code(s): I10 - Essential (primary) hypertension Patient Disposition: Home, Self-Care Instructions: Urinary Tract Infection in Older Adults (ED), Hypertension in the Older Adult (ED) Additional Instructions: Please buy a blood pressure machine in take your blood pressure every day. write down the results, and call your primary care provider for follow-up appointment. If you have worsening symptoms of headache, blurred vision, weakn ess, please return to the emergency room to be seen. Please take your antibiotics every 6 hours for your urinary tract infection. Please use your albuterol inhaler for your shortness of breath. Please return to emergency room if you have back pain, fevers, worsening chest pain, shortness of breath. I have prescribed ketorolac, which you got today in the emergency room which resolved your chest pain. Prescriptions: New cephalexin 500 mg capsule 500 mg PO QID 7 Days Qty: 28 RF: 0 albuterol sulfate 90 mcg/actuation HFA aerosol inhaler 2 puff inhalation Q4-6H PRN (Reason: shortness of breath or wheezing) Qty: 8.5 RF: 0 ketorolac 10 mg tablet 10 mg PO TID 5 Days Qty: 15 RF: 0 No Action zolpidem 10 mg tablet 10 mg PO BEDTIME PRN (Reason: insomnia) 30 Days Qty: 30 RF: 1 methadone [Methadone Intensol] 10 mg/mL concentrate 55 mg PO DAILY RF: 0 lisinopril 20 mg Tablet 20 mg PO DAILY RF: 0 aripiprazole 10 mg tablet 10 mg PO DAILY RF: 0 bupropion HCl 150 mg tablet sustained-release 12 hr 150 mg PO DAILY RF: 0 hydrochlorothiazide 12.5 mg tablet 12.5 mg PO DAILY RF: 0 nicotine (polacrilex) 2 mg gum 4 mg buccal Q2H PRN (Reason: Nicotine Cravings) Qty: 50 RF: 0 nystatin-triamcinolone 100,000-0.1 unit/g-% cream 1 appl topical BID Qty: 30 RF: 0 aspirin 81 mg tablet,delayed release (DR/EC) 81 mg PO DAILY Qty: 90 RF: 0 clonidine HCl 0.1 mg tablet 0.1 mg PO Q8H PRN (Reason: anxiety, hyperarousal) Qty: 60 RF: 0 duloxetine 60 mg capsule,delayed release(DR/EC) 60 mg PO DAILY Qty: 30 RF: 0 omeprazole 20 mg capsule,delayed release(DR/EC) 20 mg PO BID 30 Days Qty: 60 RF: 1 gabapentin 300 mg capsule 300 mg PO TID Qty: 90 RF: 0 atorvastatin 80 mg tablet 80 mg PO DAILY Qty: 90 RF: 0 cholecalciferol (vitamin D3) 25 mcg (1,000 unit) tablet 25 mcg PO DAILY Qty: 90 RF: 0
[2021-08-16 15:53] LABS: D Dimer High Sensitivity 220 NG/ML
[2021-08-16 15:59] LABS: Anion Gap 16 (12-20); Blood Urea Nitrogen 15 mg/dL (9-16); Calcium 9.9 mg/dL (8.4-10.2); Carbon Dioxide 25 mmol/L (22-29); Chloride 107 mmol/L (96-108); Creatinine Clr Calc Pharmacy 74.9; Estimated Glomerular Filt Rate > 60; Glucose Random 83 mg/dL (60-115); Potassium 4.5 mmol/L (3.3-5.1); Sodium 143 mmol/L (135-145)
[2021-08-16 16:00] LABS: Alanine Aminotransferase 16 U/L (0-31); Alkaline Phosphatase 124 U/L (39-117); Anion Gap 13 (12-20); Aspartate Amino Transferase 20 U/L (5-31); Bilirubin Total 0.5 mg/dL (0.0-1.0); Blood Urea Nitrogen 15 mg/dL (9-16); Calcium 9.8 mg/dL (8.4-10.2); Carbon Dioxide 27 mmol/L (22-29); Chloride 107 mmol/L (96-108); Creatinine Clr Calc Pharmacy 73.1; Estimated Glomerular Filt Rate > 60; Glucose Random 82 mg/dL (60-115); Potassium 4.2 mmol/L (3.3-5.1); Sodium 143 mmol/L (135-145); Total Protein 6.5 g/dL (6.5-8.0)
[2021-08-16 16:04] LABS: Troponin-I High Sensitivity < 3.5 ng/L (<3.5-17.0)
[2021-08-16] MEDS: Aspirin 81 MG TAB.CHEW 162 MG PO (16:48)
[2021-08-16] MEDS: Labetalol HCL 100 MG/20 ML VIAL 20 MG IVPUSH (16:49)
[2021-08-16] MEDS: iohexoL 350 MG/ML 100 ML INFUS..BTL 65 ML IV (17:04)
--- NOTE | 2021-08-16 18:39 | PC.NURSE ---
PATIENT ATE 2 [employer] AND LEE BLU .
[2021-08-16 18:45] LABS: MANUAL DIFF FLAG NO
[2021-08-16 18:48] LABS: Appearance Urine CLEAR; Color Urine YELLOW; Glucose Urine UA NEG (NEG); Leukocyte Esterase Urine NEG (NEG); Nitrite Urine NEG (NEG); PH 6.5 (5.0-8.0); Specific Gravity - Urine <= 1.005 (1.005-1.025); Urine Blood NEG (NEG); Urine Ketones NEG (NEG); Urine Protein NEG (NEG-TRACE)
[2021-08-16 18:52] LABS: Basophils Percent Auto 0.4 % (0-2); Eosinophils Absolute Auto 0.2 X10*3/uL (0.0-0.4); Hematocrit 42.9 % (37.0-47.0); Hemoglobin 14.1 g/dl (12.0-16.0); Imm Gran Abs Auto 0.03 X10*3/uL (0.00-0.03); Imm Gran Pct Auto 0.3 % (0.0-0.4); Lymphocytes Absolute Auto 3.7 X10*3/uL (1.2-4.9); Lymphocytes Percent Auto 35.8 % (20-40); Mean Corpuscular HGB Conc 32.9 g/dl (31.0-35.0); Mean Corpuscular Hemoglobin 30.1 pg (27.0-33.0); Mean Corpuscular Volume 91.7 fL (80.0-98.0); Monocytes Absolute Auto 0.7 X10*3/uL (0.1-1.2); Monocytes Percent Auto 6.7 % (2-11); Neutrophils Absolute Auto 5.6 x10*3/uL (2.0-8.3); Neutrophils Percent Auto 54.8 % (45-73); Platelet Count 319 X10*3/uL (160-400); Red Blood Count 4.68 X10*6/uL (4.20-5.50); Red Cell Distribution Width 13.4 % (11.0-16.0); White Blood Count 10.2 X10*3/uL (4.8-10.8)
[2021-08-16 18:53] LABS: RBC Urine 0 /HPF (0); WBC Urine 0 /HPF (0-4)
[2021-08-16 18:54] LABS: Bacteria Urine 2+ /LPF; Squamous Epithelial Cell Urine TRACE /LPF
[2021-08-16] MEDS: cephALEXin 500 MG CAPSULE PO (19:23)
[2021-08-16] MEDS: Albuterol Sulfate 90 MCG 8 GM INHALER 2 PUFF INHALE (21:42)
--- NOTE | 2021-08-16 22:07 | PC.NURSE ---
patient was insistent that her ED provider told her that she would be given an albuterol puffer but it was not ordered to be given in the ed but an order was sent to her pharmacy, new ed provider came on and due to the patients insistence of having this prior to leaving, this nurse asked the new provider if she could order this for the patient, it was ordered, rt was called and patient had the treatment.
== END 2021-08-16 22:09 | disposition home or self-care (01) ==
PROVIDERS: Physician Assistant; Emergency Provider Emergency Medicine
DX: N30.00 Acute cystitis without hematuria (principal); R06.02 Shortness of breath; I10 Essential (primary) hypertension; I67.83 Posterior reversible encephalopathy syndrome; Z86.73 Personal history of transient ischemic attack (TIA), and cerebral infarction without residual deficits; Z79.899 Other long term (current) drug therapy
CPT/HCPCS: 36415; 70450; 71045; 71275; 80048; 80053; 81001; 84484; 85025; 85379; 93005; 96374; 99284; Q9967

== ENCOUNTER 2022-09-23 11:47 | Outpatient (REF) | payer OTHER, SELFPAY ==
[2022-09-23 12:12] LABS: MANUAL DIFF FLAG NO
[2022-09-23 12:32] LABS: Appearance Urine Cloudy; Color Urine Dark Yellow; Glucose Urine UA Negative (Negative); Leukocyte Esterase Urine Small (1+) (Negative); Nitrite Urine Positive (Negative); Specific Gravity - Urine 1.025 (1.005-1.025); UMIC TRIGGER UACC YES; Urine Blood Negative (Negative); Urine Ketones Negative (Negative); Urine Protein Trace mg/dL (Neg-Trace)
[2022-09-23 12:34] LABS: Basophils Absolute Auto 0.1 X10*3/uL (0.0-0.2); Basophils Percent Auto 0.6 % (0-2); Eosinophils Absolute Auto 0.2 X10*3/uL (0.0-0.4); Eosinophils Percent Auto 1.9 % (0-4); Hematocrit 42.4 % (37.0-47.0); Hemoglobin 13.8 g/dl (12.0-16.0); Imm Gran Abs Auto 0.03 X10*3/uL (0.00-0.03); Imm Gran Pct Auto 0.4 % (0.0-0.4); Lymphocytes Absolute Auto 2.9 X10*3/uL (1.2-4.9); Mean Corpuscular HGB Conc 32.5 g/dl (31.0-35.0); Mean Corpuscular Hemoglobin 30.2 pg (27.0-33.0); Mean Corpuscular Volume 92.8 fL (80.0-98.0); Mean Platelet Volume 10.3 fL (9.4-12.3); Monocytes Absolute Auto 0.7 X10*3/uL (0.1-1.2); Neutrophils Absolute Auto 4.5 x10*3/uL (2.0-8.3); Neutrophils Percent Auto 54.1 % (45-73); Platelet Count 270 X10*3/uL (160-400); Red Blood Count 4.57 X10*6/uL (4.20-5.50); Red Cell Distribution Width 13.5 % (11.0-16.0); White Blood Count 8.4 X10*3/uL (4.8-10.8)
[2022-09-23 12:37] LABS: Bacteria Urine 4+ (None Seen); UACC Culture Trigger YES; WBC Urine 21-50 /HPF (0-5)
[2022-09-23 12:39] LABS: Prothrombin Time 11.5 SEC (10.0-13.1)
[2022-09-23 13:13] LABS: Alanine Aminotransferase 41 U/L (0-31); Alkaline Phosphatase 111 U/L (39-117); Anion Gap 14 (12-20); Aspartate Amino Transferase 37 U/L (5-31); Bilirubin Total 0.5 mg/dL (0.0-1.0); Blood Urea Nitrogen 18 mg/dL (9-16); Calcium 9.4 mg/dL (8.4-10.2); Carbon Dioxide 30 mmol/L (22-29); Chloride 101 mmol/L (96-108); Estimated Glomerular Filt Rate > 60; Glucose Random 93 mg/dL (60-115); Potassium 3.8 mmol/L (3.3-5.1); Sodium 141 mmol/L (135-145); Total Protein 6.6 g/dL (6.5-8.0)
[2022-09-23 13:19] LABS: TSH reflex Free T4 0.98 uIU/mL (0.32-4.0)
== END 2022-09-23 11:48 | disposition home or self-care (01) ==
LOC: HO.LAB 11:47
PROVIDERS: PCP Nurse Practitioner Family; Visit Provider Nurse Practitioner Family
DX: Z01.818 Encounter for other preprocedural examination (principal)
CPT/HCPCS: 36415; 80053; 81001; 84443; 85025; 85610; 87086; 87088; 87186

== ENCOUNTER 2023-10-19 13:35 | Outpatient (AMB) | payer OTHER, SELFPAY ==
--- NOTE | 2023-10-19 13:39 | A.OFFPC_ITS ---
Vital Signs 10/19/23 13:40 10/19/23 13:50 Height 5 ft 3 in Weight 181 lb BMI 32.1 BP 140/100 H 120/80 Blood Pressure Location Lt brachial Lt brachial Position Sitting Sitting Pulse 89 Pulse Source Pulse Oximeter Pulse Oximetry (%) 97 Oxygen Delivery Method Room Air Intake Visit Reasons: med review Intake Note: Patient is here to follow up on med review. Senior Security Architect Required: No Sifter And Miller: Not Required per policy Accompanied by: Self / Same As Patient Allergies aspirin Allergy (Unknown, Verified 10/21/23 11:09) but can take ibuprofen pregabalin Allergy (Unknown, Verified 10/21/23 11:09) unknown Medication List - Last Reconciled 10/21/23 by Shaan Alex MD albuterol sulfate 90 mcg/actuation (ProAir HFA) 2 puffs inhalation Q4-6H PRN albuterol sulfate 90 mcg/actuation (Ventolin HFA) 2 puffs inhalation Q4-6H PRN aspirin 81 mg PO DAILY atorvastatin 80 mg PO DAILY bupropion HCl 150 mg PO DAILY cholecalciferol (vitamin D3) 25 mcg PO DAILY clonidine HCl 0.1 mg See Protocol PO BID PRN docusate sodium 100 mg PO BEDTIME PRN duloxetine 60 mg PO DAILY fluticasone propionate 50 mcg/actuation (Flonase Allergy Relief) 1 spray intranasal DAILY 30 days gabapentin 300 mg PO TID hydrochlorothiazide 12.5 mg PO DAILY lidocaine 5% 2 patches topical DAILY PRN NS lisinopril 20 mg PO DAILY methadone (Methadone Intensol) 55 mg PO DAILY nicotine 1 patch transdermal DAILY omeprazole 20 mg PO BID zolpidem 10 mg PO BEDTIME PRN 30 days Tobacco use date assessed: 10/19/23 Dental Screening Dental Screen Date: 10/19/23 Did you have a dental visit in the last 12 months?: Yes Did you have a dental problem in the last 6 months where you did not have access to dental care?: No Was dental information given to patient?: Patient has dentist HPI med review HPI Details 62-year-old female presents to the offic e to discuss her medical issues. I will be assuming her care from today as her current primary provider has left the practice. Patient has a long list of medications that need to be reviewed. Her past medical history is significant for Corral's esophagus, fibromyalgia, anxiety and depression. In addition she takes methadone for substance use disorder. [facility] Medical History (Updated 10/21/23 @ 11:20 by Shaan Alex MD) Blocked ear Depression, psychotic COVID-19 Hypertension Intertrigo Insomnia GERD (gastroesophageal reflux disease) Encounter for medication review Surgical History History of tubal ligation History of endometrial ablation Family History Father No problems noted. Mother Mental health disorder Brother Congenital cardiomyopathy Sister Cardiomyopathy Other Substance use disorder Social History Household Members: None Housing: Apartment Do you presently have visiting nurse or other home services: No Alcohol intake: never Comment: Sitter for SI Patient Tobacco Use Status: Current everyday Tobacco user Tobacco use type: Cigarette Cigarettes Per Day: 2 e-Cigarette/Vaping Use: Never Used Second Hand Smoke Exposure: Yes Substance Use Type: Crack/Cocaine and Opiates service: No Current occupational status: disabled Sexual orientation: Did not discuss. Cognitive needs: No Hearing needs: No Vision needs: Yes (Glasses) Questionnaire PHQ-9 Over the last 2 weeks, how often have you been bothered by any of the following problems? 1. Little interest or pleasure in doing things: more than half the days 2. Feeling down, depressed, or hopeless: nearly every day 3. Trouble falling or staying asleep, or sleeping too much: several days 4. Feeling tired or having little energy: more than half the days 5. Poor appetite or overeating: more than half the days 6. Feeling bad about yourself - or that you are a failure or have let yourself or your family down: more than half the days 7. Trouble concentrating on things, such as reading the newspaper or watching television: more than half the days 8. Moving or speaking so slowly that other people could have noticed. Or the opposite - being so fidgety or restless that you have been moving around a lot more than usual: more than half the days 9. Thoughts that you would be better off or of hurting yourself in some way: not at all Total score: 16 Depression Screening Interpretation: Positive Depression Screening Follow-up: Existing condition and In treatment Depression Screening Done: Yes Source: Developed by Drs. Vishnu Nelson, Amos Hines and colleagues, with an educational gaye from [employer]. Thrive Questionnaire Date Thrive assessed: 10/19/23 I am a: Patient What is your living situation today?: I have a steady place to live Within the past 12 months, did the food you bought not last and you didn't have the money to get more?: Never true Within the past 12 months, did you worry whether your food would run out before you got money to buy more?: Never true Do you have trouble paying for medicines?: No Do you have trouble getting transportation to medical appointments?: No Do you have trouble paying your heating and electricity bill?: No Do you have trouble taking care of your child, family member or friend?: No Do you have trouble with day-to-day activities such as bathing, preparing meals, shopping, managing finances, etc.?: No Are you currently unemployed and looking for a job?: No Are you interested in more education?: No Currently or been in a relationship where the following occur: no concerns reported THRIVE Score: 0 AUDIT C Alcohol Use Questionnaire (AUDIT-C) 1. How often do you have a drink containing alcohol?: Never Total Score: 0 MAGGI-7 AMB Questionnaire MAGGI-7 Date MAGGI - 7 assessed: 10/19/23 Feeling nervous, anxious, or on edge: 2 = More than half the days Not being able to stop or control worryin = Not at all Worrying too much about different things: 0 = Not at all Trouble relaxin = Several days Being so restless that it is hard to sit still: 0 = Not at all Becoming easily annoyed or irritable: 1 = Several days Feeling afraid as if something awful might happen: 0 = Not at all Total MAGGI-7 score (0-4 normal; 5-9 mild; 10-14 moderate; 15-21 severe): 4 Source: Developed by Drs. Vishnu Nelson, Amos Hines and colleagues, with an educational gaye from [employer]. Physical exam (Primary Care) Vital Signs: Last Vital Signs Pulse 89 10/19/23 13:40 BP 120/80 10/19/23 13:50 Pulse Ox 97 10/19/23 13:40 Oxygen Delivery Method Room Air 10/19/23 13:40 Care Plan Goal for BP management: Blood pressure is in range. BMI result Body Mass Index 32.1 Tobacco/Smoking Status: Tobacco use Status Tobacco use date assessed 10/19/23 10/19/23 13:51 Patient Tobacco Use Status Current everyday Tobacco 10/19/23 13:51 Tobacco use type Cigarette 10/19/23 13:51 e-Cigarette/Vaping Use Never Used 10/19/23 13:51 PHQ-9: PHQ-9 Score PHQ-9: Total score 16 10/19/23 13:52 Depression Screening Interpretation: Positive Depression Screening Follow-up: Existing condition and In treatment Thrive Assessment: Date of Thrive Assessment Date Thrive assessed 10/19/23 10/19/23 13:51 Currently or been in a relationship where the following occur: no concerns reported Const General: cooperative and healthy appearing Nutritional Appearance: well nourished Orientation/consciousness: patient oriented x3 Limitations: no limitations HENMT Head: Yes normal to inspection Eyes General: appearance normal, both eyes and all related structures Neck Neck: Yes normal visual inspection Chest Chest palpation & inspection: normal palpation of entire chest wall Resp Effort & Inspection: normal respiratory effort Neuro General: patient oriented x3 Assessment and Plan Assessment & Plan (1) Fibromyalgia: Code(s): M79.7 - Fibromyalgia Plan: Medication list reviewed. Continue the duloxetine. Prescription written. (2) Substance use disorder: Code(s): F19.90 - Other psychoactive substance use, unspecified, uncomplicated Plan: Currently not using any drugs. Patient is on methadone. (3) Depression, psychotic: Code(s): F32.3 - Major depressive disorder, single episode, severe with psychotic feature s Plan: Patient has a psychiatrist who is prescribing most of the medications. (4) Corral's esophagus: Comment: dx 2019 per pt Code(s): K22.70 - Corral's esophagus without dysplasia Plan: Patient has a GI consult pending. (5) Nicotine dependence: Code(s): F17.200 - Nicotine dependence, unspecified, uncomplicated (6) Lacunar infarction: Code(s): I63.81 - Other cerebral infarction due to occlusion or stenosis of small artery (7) Polysubstance abuse: Code(s): F19.10 - Other psychoactive substance abuse, uncomplicated Orders: Orders Complete Blood Count no Diff 10/19/23 M79.7 - Fibromyalgia Basic Metabolic Panel 10/19/23 M79.7 - Fibromyalgia Lipid Panel 10/19/23 M79.7 - Fibromyalgia Liver Panel 10/19/23 M79.7 - Fibromyalgia Thyroid Stimulating Hormone 10/19/23 M79.7 - Fibromyalgia UA and rflx microscopic 10/19/23 M79.7 - Fibromyalgia Medications: Refilled docusate sodium 100 mg PO BEDTIME PRN 90 ea 2RF for constipation K59.00 - Constipation, unspecified duloxetine 60 mg PO DAILY 30 caps 2RF gabapentin 300 mg PO TID 90 caps 0RF omeprazole 20 mg PO BID 180 tabs 1RF K21.9 - Gastro-esophageal reflux disease without esophagitis albuterol sulfate 90 mcg/actuation (ProAir HFA) 2 puffs inhalation Q4-6H PRN 8.5 grams 1RF for wheezing R06.09 - Other forms of dyspnea albuterol sulfate 90 mcg/actuation (Ventolin HFA) 2 puffs inhalation Q4-6H PRN 6.7 grams 0RF shortness of breath or wheezing clonidine HCl 0.1 mg See Protocol PO Q8H PRN 60 tabs 0RF anxiety, hyperarousal fluticasone propionate 50 mcg/actuation (Flonase Allergy Relief) administer into each nostril 1 spray intranasal DAILY 30 days 100 mL 0RF H93.8X9 - Other specified disorders of ear, unspecified ear lidocaine 5% 2 patches topical DAILY PRN 30 patches 0RF for pain NS M25.512 - Pain in left shoulder, M54.50 - Low back pain, unspecified zolpidem 10 mg PO BEDTIME 30 days PRN 30 tabs 1RF insomnia Coding Level of Care Code Est Pt Level 4 (06532) Diagnoses Fibromyalgia M79.7 Substance use disorder F19.90 Depression, psychotic F32.3 Corral's esophagus K22.70 Nicotine dependence F17.200 Lacunar infarction I63.81 Polysubstance abuse F19.10
[2023-10-19 13:40] VITALS: BP 140/100; PULSE 89; O2SAT 97; BMI 32.1
[2023-10-19 13:50] VITALS: BP 120/80
== END 2023-10-19 14:06 | disposition home or self-care (01) ==
PROVIDERS: PCP Internal Medicine; Visit Provider Internal Medicine
DX: M79.7 Fibromyalgia (principal); F32.3 Major depressive disorder, single episode, severe with psychotic features; F19.10 Other psychoactive substance abuse, uncomplicated; I63.81 Other cerebral infarction due to occlusion or stenosis of small artery; F19.90 Other psychoactive substance use, unspecified, uncomplicated; K22.70 Barrett's esophagus without dysplasia; F17.200 Nicotine dependence, unspecified, uncomplicated
CPT/HCPCS: 99214

== ENCOUNTER 2023-10-19 14:14 | Outpatient (REF) | payer OTHER, SELFPAY ==
[2023-10-19 15:11] LABS: Appearance Urine Cloudy; Color Urine Yellow; Glucose Urine UA Negative (Negative); Leukocyte Esterase Urine Negative (Negative); Nitrite Urine Negative (Negative); PH 5.5 (5.0-9.0); Urine Blood Negative (Negative); Urine Ketones Negative (Negative); Urine Protein Negative (Neg-Trace)
[2023-10-19 15:12] LABS: Hematocrit 43.3 % (37.0-47.0); Hemoglobin 14.4 g/dl (12.0-16.0); Mean Corpuscular HGB Conc 33.3 g/dl (31.0-35.0); Mean Corpuscular Hemoglobin 30.3 pg (27.0-33.0); Mean Corpuscular Volume 91.2 fL (80.0-98.0); Platelet Count 362 X10*3/uL (160-400); Red Blood Count 4.75 X10*6/uL (4.20-5.50); Red Cell Distribution Width 14.2 % (11.0-16.0); White Blood Count 12.4 X10*3/uL (4.8-10.8)
[2023-10-19 15:49] LABS: Alanine Aminotransferase 33 U/L (0-31); Albumin Level 4.2 g/dL (3.5-5.0); Alkaline Phosphatase 119 U/L (39-117); Anion Gap 12 (12-20); Aspartate Amino Transferase 22 U/L (5-31); Bilirubin Direct 0.1 mg/dL (0.0-0.5); Bilirubin Total 0.3 mg/dL (0.0-1.0); Blood Urea Nitrogen 24 mg/dL (9-16); Calcium 9.8 mg/dL (8.4-10.2); Carbon Dioxide 28 mmol/L (22-29); Chloride 105 mmol/L (96-108); Cholesterol 179 mg/dL (<200); Estimated Glomerular Filt Rate > 60; Glucose Random 132 mg/dL (60-115); HDL Cholesterol 48 mg/dL (>40); LDL Cholesterol Calculated 63 mg/dL (<100); Potassium 4.1 mmol/L (3.3-5.1); Sodium 141 mmol/L (135-145); Total Protein 7.4 g/dL (6.5-8.0); Triglycerides 342 mg/dL (<150)
[2023-10-19 16:04] LABS: Thyroid Stimulating Hormone 1.37 uIU/mL (0.32-4.0)
== END 2023-10-19 14:15 | disposition home or self-care (01) ==
LOC: HO.LAB 14:14
PROVIDERS: PCP Internal Medicine; Visit Provider Internal Medicine
DX: M79.7 Fibromyalgia (principal)
CPT/HCPCS: 36415; 80048; 80061; 80076; 81003; 84443; 85027

== ENCOUNTER 2024-02-02 11:33 | Outpatient (AMB) | payer OTHER, SELFPAY ==
--- NOTE | 2024-02-02 12:02 | A.OFFPC_ITS ---
Vital Signs 02/02/24 12:04 Height 5 ft 3 in Weight 186 lb 6 oz BMI 33.0 BP 130/70 Blood Pressure Location Lt brachial Position Sitting Pulse 70 Pulse Source Pulse Oximeter Pulse Oximetry (%) 95 Oxygen Delivery Method Room Air Intake Visit Reasons: 3 month f/u Intake Note: Patient is here to follow up on Fibromyalgia, AKF, HTN. Pt was recent in [facility] Mobile Security Architect Required: No Quality Head: Not Required per policy Accompanied by: Self / Same As Patient Allergies aspirin Allergy (Unknown, Verified 02/14/24 15:26) but can take ibuprofen pregabalin Allergy (Unknown, Verified 02/14/24 15:26) unknown Medication List - Last Reconciled 02/14/24 by Shaan Alex MD albuterol sulfate 90 mcg/actuation (Ventolin HFA) 2 puffs inhalation Q4-6H PRN aspirin 81 mg PO DAILY atorvastatin 80 mg PO DAILY bupropion HCl SR 150 mg PO DAILY cholecalciferol (vitamin D3) 25 mcg PO DAILY clonidine HCl 0.1 mg See Protocol PO BID PRN docusate sodium 100 mg PO BEDTIME PRN duloxetine 60 mg PO DAILY fluticasone propionate 50 mcg/actuation (Flonase Allergy Relief) 1 spray intranasal DAILY 30 days gabapentin 300 mg PO TID hydrochlorothiazide 12.5 mg PO DAILY lidocaine 5% 2 patches topical DAILY PRN NS lisinopril 20 mg PO DAILY methadone (Methadone Intensol) 55 mg PO DAILY nicotine 1 patch transdermal DAILY omeprazole 20 mg PO BID zolpidem 10 mg PO BEDTIME PRN 30 days Tobacco use date assessed: 02/02/24 Dental Screening Dental Screen Date: 10/19/23 HPI 3 month f/u HPI Details 63-year-old female presents to the [facility] for a follow-up visit. Patient is compliant with medications, able to function and do all activities of daily living. Requesting no refills. Sleep patterns are adequate. [facility] Medical History Blocked ear Depression, psychotic COVID-19 Hypertension Intertrigo Insomnia GERD (gastroesophageal reflux disease) Encounter for medication review Surgical History History of tubal ligation History of endometrial ablation Family History Father No problems noted. Mother Mental health disorder Brother Congenital cardiomyopathy Sister Cardiomyopathy Other Substance use disorder Social History Household Members: None Housing: Apartment Do you presently have visiting nurse or other home services: No Alcohol intake: never Comment: Sitter for SI Patient Tobacco Use Status: Former Tobacco user (january 11, 2024) Tobacco use type: Cigarette Cigarettes Per Day: 2 e-Cigarette/Vaping Use: Never Used Second Hand Smoke Exposure: Yes Substance Use Type: Crack/Cocaine and Opiates service: No Current occupational status: disabled Sexual orientation: Did not discuss. Cognitive needs: No Hearing needs: No Vision needs: Yes (Glasses) Questionnaire Thrive Questionnaire Date Thrive assessed: 10/19/23 MAGGI-7 AMB Questionnaire MAGGI-7 Date MAGGI - 7 assessed: 10/19/23 Source: Developed by Drs. Vishnu Nelson, Lilian Tucker, Amos Peña and colleagues, with an educational gaye from [employer]. Physical exam (Primary Care) Vital Signs: Last Vital Signs Pulse 70 02/02/24 12:04 BP 130/70 02/02/24 12:04 Pulse Ox 95 02/02/24 12:04 Oxygen Delivery Method Room Air 02/02/24 12:04 BMI result Body Mass Index 33.0 Tobacco/Smoking Status: Tobacco use Status Tobacco use date assessed 02/02/24 02/02/24 12:10 Patient Tobacco Use Status Former Tobacco user (january 10, 02/02/24 12:10 2023) Tobacco use type Cigarette 02/02/24 12:10 e-Cigarette/Vaping Use Never Used 02/02/24 12:10 Thrive Assessment: Date of Thrive Assessment Date Thrive assessed 10/19/23 02/02/24 12:10 Const General: cooperative and healthy appearing Nutritional Appearance: well nourished Orientation/consciousness: patient oriented x3 Limitations: no limitations HENMT Head: Yes normal to inspection Eyes General: appearance normal, both eyes and all related structures Neck Neck: Yes normal visual inspection Chest Chest palpation & inspection: normal palpation of entire chest wall Resp Effort & Inspection: normal respiratory effort Neuro General: patient oriented x3 Assessment and Plan Assessment & Plan (1) Fibromyalgia: Code(s): M79.7 - Fibromyalgia Plan: Condition is stable. Continue medications at same doses. Coding Level of Care Code Est Pt Level 3 (50854) Complex EM visit Add On G2211 Diagnoses Fibromyalgia M79.7
[2024-02-02 12:04] VITALS: BP 130/70; PULSE 70; O2SAT 95; BMI 33.0
== END 2024-02-02 12:35 | disposition home or self-care (01) ==
LOC: HO.HMGH 11:33
PROVIDERS: PCP Internal Medicine; Visit Provider Internal Medicine
DX: M79.7 Fibromyalgia (principal)
CPT/HCPCS: 99213; G2211

== ENCOUNTER 2024-04-23 10:01 | Outpatient (AMB) | payer OTHER, SELFPAY ==
[2024-04-23 10:08] VITALS: BP 90/62; PULSE 64; O2SAT 98; BMI 33.7
--- NOTE | 2024-04-23 10:08 | A.OFFPC_ITS ---
Vital Signs 04/23/24 10:08 Height 5 ft 3 in Weight 190 lb 0.5 oz BMI 33.7 BP 90/62 Blood Pressure Location Rt brachial Position Sitting Pulse 64 Pulse Source Pulse Oximeter Pulse Oximetry (%) 98 Oxygen Delivery Method Room Air Intake Visit Reasons: Dizziness Intake Note: Barrel Coater Required: No Allergies aspirin Allergy (Unknown, Verified 04/23/24 10:09) but can take ibuprofen pregabalin Allergy (Unknown, Verified 04/23/24 10:09) unknown Tobacco use date assessed: 02/02/24 Dental Screening Dental Screen Date: 10/19/23 HPI Dizziness HPI Details 63-year-old female presents to the [facility] to discuss her chronic medical conditions. Patient is reporting symptoms of dizziness. No nausea or vomiting. Occasional tinnitus. Has had 1 or 2 episodes of falls. At baseline state of health. Continues to be free of substance use. Compliant with all medications. [facility] Medical History (Updated 04/23/24 @ 13:54 by Shaan Alex MD) Tobacco use disorder Blocked ear Depression, psychotic COVID-19 Hypertension Intertrigo Insomnia GERD (gastroesophageal reflux disease) Encounter for medication review Surgical History History of tubal ligation History of endometrial ablation Family History Father No problems noted. Mother Mental health disorder Brother Congenital cardiomyopathy Sister Cardiomyopathy Other Substance use disorder Social History Household Members: None Housing: Apartment Do you presently have visiting nurse or other home services: No Alcohol intake: never Comment: Sitter for SI Patient Tobacco Use Status: Former Tobacco user (january 11, 2024) Tobacco use type: Cigarette Cigarettes Per Day: 2 e-Cigarette/Vaping Use: Never Used Second Hand Smoke Exposure: Yes Substance Use Type: Crack/Cocaine and Opiates service: No Current occupational status: disabled Sexual orientation: Did not discuss. Cognitive needs: No Hearing needs: No Vision needs: Yes (Glasses) Questionnaire Thrive Questionnaire Date Thrive assessed: 10/19/23 AUDIT C Alcohol Use Questionnaire (AUDIT-C) 1. How often do you have a drink containing alcohol?: Never 3. How often do you have six or more drinks on one occasion?: Never Total Score: 0 MAGGI-7 AMB Questionnaire MAGGI-7 Date MAGGI - 7 assessed: 10/19/23 Source: Developed by Drs. Vishnu Nelson, Lilian Tucker, Amos Peña and colleagues, with an educational gaye from [employer]. Physical exam (Primary Care) Vital Signs: Last Vital Signs Pulse 64 04/23/24 10:08 BP 90/62 04/23/24 10:08 Pulse Ox 98 04/23/24 10:08 Oxygen Delivery Method Room Air 04/23/24 10:08 Care Plan Goal for BP management: Blood pressure is stable. Continue current medications. BMI result Body Mass Index 33.7 BMI Assessment/Plan discussion: High (1 lb per week weight loss suggested.) BMI High, discussed plan: lifestyle, weight reduction and dietary Tobacco/Smoking Status: Tobacco use Status Tobacco use date assessed 02/02/24 04/23/24 10:09 Patient Tobacco Use Status Former Tobacco user (january 10, 04/23/24 10:09 2023) Tobacco use type Cigarette 04/23/24 10:09 e-Cigarette/Vaping Use Never Used 04/23/24 10:09 Are you ready to quit: No Thrive Assessment: Date of Thrive Assessment Date Thrive assessed 10/19/23 04/23/24 10:09 Const General: cooperative and healthy appearing Nutritional Appearance: well nourished Orientation/consciousness: patient oriented x3 Limitations: no limitations HENMT Head: Yes normal to inspection Eyes General: appearance normal, both eyes and all related structures Neck Neck: Yes normal visual inspection Chest Chest palpation & inspection: normal palpation of entire chest wall Resp Effort & Inspection: normal respiratory effort Neuro General: patient oriented x3 Assessment and Plan Assessment & Plan (1) GERD (gastroesophageal reflux disease): Code(s): K21.9 - Gastro-esophageal reflux disease without esophagitis Qualifiers: Esophagitis presence: without esophagitis Qualified Code(s): K21.9 - Gastro-esophageal reflux disease without esophagitis Plan: Continue PPI at same dosage. Condition is stable (2) Acute kidney failure: Code(s): N17.9 - Acute kidney failure, unspecified Plan: Blood work has been ordered. Will call with results. (3) Polysubstance abuse: Code(s): F19.10 - Other psychoactive substance abuse, uncomplicated Plan: Condition is stable. Continue on Methadone. (4) Hypertension: Code(s): I10 - Essential (primary) hypertension Qualifiers: Hypertension type: essential hypertension Qualified Code(s): I10 - Essential (primary) hypertension Plan: BP is stable. Continue medications (5) Fibromyalgia: Code(s): M79.7 - Fibromyalgia Plan: Condition is stable. Has never seen a senior audit manager. (6) Dizziness: Code(s): R42 - Dizziness and giddiness Plan: Meclizine added to the regimen. If sx do not resolve, to follow up here. (7) Depression, psychotic: Code(s): F32.3 - Major depressive disorder, single episode, severe with psychotic features Plan: Patient sees a psychiatrist for medication refills (8) Obesity (BMI 30-39.9): Code(s): E66.9 - Obesity, unspecified Plan: Counseling done. (9) Tobacco use disorder: Code(s): F17.200 - Nicotine dependence, unspecified, uncomplicated Plan: Counseling to quit smoking done. Orders: Orders MM screening mammo BI Today Z12.31 - Encounter for screening mammogram for malignant neoplasm of breast UA and rflx microscopic Today F19.10 - Other psychoactive substance abuse, uncomplicated, I10 - Essential (primary) hypertension, M79.7 - Fibromyalgia, N17.9 - Acute kidney failure, unspecified Basic Metabolic Panel Today F19.10 - Other psychoactive substance abuse, uncomplicated, I10 - Essential (primary) hypertension, M79.7 - Fibromyalgia, N17.9 - Acute kidney failure, unspecified Complete Blood Count no Diff Today F19.10 - Other psychoactive substance abuse, uncomplicated, I10 - Essential (primary) hypertension, M79.7 - Fibromyalgia, N17.9 - Acute kidney failure, unspecified Liver Panel Today F19.10 - Other psychoactive substance abuse, uncomplicated, I10 - Essential (primary) hypertension, M79.7 - Fibromyalgia, N17.9 - Acute kid samir failure, unspecified Thyroid Stimulating Hormone Today F19.10 - Other psychoactive substance abuse, uncomplicated, I10 - Essential (primary) hypertension, M79.7 - Fibromyalgia, N17.9 - Acute kidney failure, unspecified Lipid Panel Today F19.10 - Other psychoactive substance abuse, uncomplicated, I10 - Essential (primary) hypertension, M79.7 - Fibromyalgia, N17.9 - Acute kidney failure, unspecified Medications: New meclizine 12.5 mg PO TID PRN 30 tabs 0RF dizziness Coding Level of Care Code Est Pt Level 4 (44834) Complex EM visit Add On G2211 Diagnoses Gastroesophageal reflux disease without esophagitis K21.9 Esophagitis presence: without esophagitis Acute kidney failure N17.9 Polysubstance abuse F19.10 Essential hypertension I10 Hypertension type: essential hypertension Fibromyalgia M79.7 Dizziness R42 Depression, psychotic F32.3 Obesity (BMI 30-39.9) E66.9 Tobacco use disorder F17.200
== END 2024-04-23 11:00 | disposition home or self-care (01) ==
PROVIDERS: PCP Internal Medicine; Visit Provider Internal Medicine
DX: K21.9 Gastro-esophageal reflux disease without esophagitis (principal); N17.9 Acute kidney failure, unspecified; F19.10 Other psychoactive substance abuse, uncomplicated; F32.3 Major depressive disorder, single episode, severe with psychotic features; I10 Essential (primary) hypertension; M79.7 Fibromyalgia; R42 Dizziness and giddiness; E66.9 Obesity, unspecified; F17.200 Nicotine dependence, unspecified, uncomplicated
CPT/HCPCS: 99214; G2211

== ENCOUNTER 2024-04-30 11:43 | Outpatient (REF) | payer OTHER, SELFPAY ==
[2024-04-30 12:32] LABS: Hematocrit 41.6 % (37.0-47.0); Hemoglobin 13.5 g/dl (12.0-16.0); Mean Corpuscular HGB Conc 32.5 g/dl (31.0-35.0); Mean Corpuscular Hemoglobin 30.7 pg (27.0-33.0); Mean Corpuscular Volume 94.5 fL (80.0-98.0); Mean Platelet Volume 10.5 fL (9.4-12.3); Platelet Count 337 X10*3/uL (160-400); Red Cell Distribution Width 13.7 % (11.0-16.0); White Blood Count 9.9 X10*3/uL (4.8-10.8)
[2024-04-30 12:40] LABS: Appearance Urine Cloudy; Color Urine Yellow; Glucose Urine UA Negative (Negative); Leukocyte Esterase Urine Small (1+) (Negative); Nitrite Urine Negative (Negative); PH 7.5 (5.0-9.0); UMIC TRIGGER UA YES; Urine Blood Negative (Negative); Urine Ketones Negative (Negative); Urine Protein Negative (Neg-Trace)
[2024-04-30 12:57] LABS: Bacteria Urine 4+ (None Seen); Hyaline Casts Urine 0-2 /LPF (0-2); RBC Urine 0-2 /HPF (0-2)
[2024-04-30 13:07] LABS: Alanine Aminotransferase 45 U/L (0-31); Alkaline Phosphatase 111 U/L (39-117); Anion Gap 17 (12-20); Aspartate Amino Transferase 32 U/L (5-31); Bilirubin Direct 0.1 mg/dL (0.0-0.5); Bilirubin Total 0.3 mg/dL (0.0-1.0); Blood Urea Nitrogen 14 mg/dL (9-16); Calcium 9.8 mg/dL (8.4-10.2); Carbon Dioxide 28 mmol/L (22-29); Chloride 102 mmol/L (96-108); Cholesterol 170 mg/dL (<200); Estimated Glomerular Filt Rate > 60; Glucose Random 132 mg/dL (60-115); HDL Cholesterol 52 mg/dL (>40); LDL Cholesterol Calculated 81 mg/dL (<100); Potassium 4.5 mmol/L (3.3-5.1); Sodium 142 mmol/L (135-145); Total Protein 6.9 g/dL (6.5-8.0); Triglycerides 188 mg/dL (<150)
[2024-04-30 13:23] LABS: Thyroid Stimulating Hormone 0.84 uIU/mL (0.32-4.0)
== END 2024-04-30 11:44 | disposition home or self-care (01) ==
LOC: HO.LAB 11:43
PROVIDERS: PCP Internal Medicine; Visit Provider Internal Medicine
DX: M79.7 Fibromyalgia (principal); N17.9 Acute kidney failure, unspecified; F19.10 Other psychoactive substance abuse, uncomplicated; I10 Essential (primary) hypertension
CPT/HCPCS: 36415; 80048; 80061; 80076; 81001; 84443; 85027

== ENCOUNTER 2024-06-07 13:54 | Outpatient (AMB) | payer OTHER, SELFPAY ==
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
[2024-06-07 14:19] VITALS: BP 118/70; PULSE 76; O2SAT 96; BMI 34.6
== END 2024-06-07 14:48 | disposition home or self-care (01) ==
PROVIDERS: PCP Internal Medicine; Visit Provider Internal Medicine
DX: M79.7 Fibromyalgia (principal); Z13.9 Encounter for screening, unspecified

== ENCOUNTER → 2024-06-07 13:54 | Outpatient (BNVA) | payer OTHER, SELFPAY | PROVIDERS: PCP Internal Medicine; Visit Provider Internal Medicine | DX: M79.7 Fibromyalgia (principal); R53.1 Weakness; Z79.899 Other long term (current) drug therapy; K21.9 Gastro-esophageal reflux disease without esophagitis | CPT/HCPCS: 83036; 99212 ==

== ENCOUNTER 2024-09-27 13:19 | Outpatient (AMB) | payer OTHER, SELFPAY ==
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
[2024-09-27 13:28] VITALS: BP 138/84; PULSE 78; TEMP 36.1; O2SAT 96; BMI 33.0
== END 2024-09-27 14:02 | disposition home or self-care (01) ==
PROVIDERS: PCP Internal Medicine; Visit Provider Internal Medicine
DX: Z23 Encounter for immunization (principal); E11.9 Type 2 diabetes mellitus without complications

== ENCOUNTER → 2024-09-27 13:19 | Outpatient (BNVA) | payer OTHER, SELFPAY | PROVIDERS: PCP Internal Medicine; Visit Provider Internal Medicine | DX: Z23 Encounter for immunization (principal); F19.10 Other psychoactive substance abuse, uncomplicated; F32.3 Major depressive disorder, single episode, severe with psychotic features; I63.81 Other cerebral infarction due to occlusion or stenosis of small artery; R41.3 Other amnesia | CPT/HCPCS: 83036; 90471; 90656; 96127; 99212 ==

== ENCOUNTER 2024-10-25 13:41 | Outpatient (AMB) | payer OTHER, SELFPAY ==
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
[2024-10-25 13:44] VITALS: BP 140/84; PULSE 70; TEMP 36.2; O2SAT 96; BMI 32.8
--- OUTSIDE RECORDS SUMMARY | 2024-10-25 13:49 | XMS_ITS | Clinical Summary ---
Author Organization [facility] Address [address] [place] [address] Care Team Providers Care Acid Dipper Name Role Phone Ivan Rankin DO Primary Care Provider [phone] Surgical History Surgery Date Site/Laterality Comments TUBAL LIGATION PROCEDURE: HISTORICAL TUBAL LIGATION VAGINAL DELIV[place] PROCEDURE: [place] VAGINAL [place]IV[place] ONLY; COMMENT: 4 ESOPHAGOGASTRODUODENOSCOPY 10/23/09 PROCEDURE: [place] ESOPHAGOGASTRODUODENOSCOPY TRANSORAL DIAGNOSTIC; COMMENT: Corral's esophagus, H.H; repeat in two years Medical History Medical History Date Comments Heartburn 12/03/2005 DX:Heartburn Depressive disorder, not els ewhere classified 12/03/2005 DX:Depressive disorder, not elsewhere classified Myalgia and myositis, unspecified 12/03/2005 DX:Myalgia and myositis, unspecified; COMMENT: Dr BRIONES Alcohol abuse, unspecified 12/03/2005 DX:Al cohol abuse, unspecified; COMMENT: HISTORY OF Essential hypertension, benign 12/03/2005 D X:Essential hypertension, benign Syphilis in female DX:Syphilis i n female Family History Medical History Relation Name Comments Heart failure Father Hypertrophic c ardiomyopathy Hyperlipidemia Father Hypertension Father Uterine cancer Maternal Grandmother Mental illness Mother Breast cancer Neg Hx Colon cancer Neg Hx Ovarian cancer Neg Hx Relation Name Status Comments Brother Alive 3 Father Maternal Grandmother Mother Alive Social History Tobacco Use Types Packs/Day Years Used Date Smoking Tobacco: Every Day Cigarettes Last attempted to quit: 07/13/2009 Smokeless Tobacco: Never Alcohol Use Standard Drinks/Week Comments No 0 (1 standard drink = 0.6 oz pur e alcohol) Comments Unknown Sex and Gender Information Value Date Recorded Sex Assigned at Not on file Legal Sex Female 6:07 PM EST Gender Identity Not on file Sexual Orientation Not on file Obstetrics History Plan of Treatment Health Maintenance Due Date Last Done Comments Breast Cancer Screening 1962 DTaP,Tdap,and Td Vaccines (1 - Tdap) 1981 Cervical Cancer Screening: P ap Smear 12/21/1983 Zoster Vaccines (1 of 2) 2012 COVID-19 Vaccine (1 - 2023-2 5 season) 2024 Influenza Vaccine (#1) 2024 RSV Immunization Patients 60 + Years Old (1 - 1-dose 75+ series) 2037 HIB Vaccines Aged Out No longer eligi ble based on patient's age to complete this topic HPV Vaccines Aged Out No longer eligi ble based on patient's age to complete this topic Hepatitis A Vaccines Aged Out No long er eligible based on patient's age to complete this topic Hepatitis B Vaccines Aged Out No long er eligible based on patient's age to complete this topic IPV Vaccines Aged Out No longer eligi ble based on patient's age to complete this topic MMR Vaccines Aged Out No longer eligi ble based on patient's age to complete this topic Meningococcal ACWY Vaccine Aged Out N o longer eligible based on patient's age to complete this topic Pneumococcal Vaccine: Pediat rics (0 to 5 Years) and At-Risk Patients (6 to 64 Years) Aged Out No longer eligible b ased on patient's age to complete this topic RSV Immunization Patients Un cynthia 20 months Aged Out No longer eligible b ased on patient's age to complete this topic Varicella Vaccines Aged Out No longer eligible based on patient's age to complete this topic Advance Directives Documents on File Type Date Recorded Patient 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
== END 2024-10-25 16:28 | disposition home or self-care (01) ==
LOC: HO.HMCH 13:41
PROVIDERS: PCP Internal Medicine; Visit Provider Internal Medicine
DX: F32.3 Major depressive disorder, single episode, severe with psychotic features (principal); F19.10 Other psychoactive substance abuse, uncomplicated; M79.7 Fibromyalgia

== ENCOUNTER → 2024-10-25 13:41 | Outpatient (BNVA) | payer OTHER, SELFPAY | PROVIDERS: PCP Internal Medicine; Visit Provider Internal Medicine | DX: F32.3 Major depressive disorder, single episode, severe with psychotic features (principal); M79.7 Fibromyalgia; F19.10 Other psychoactive substance abuse, uncomplicated | CPT/HCPCS: 99212 ==

== ENCOUNTER 2024-11-09 14:31 | Outpatient (AMB) | payer OTHER, SELFPAY ==
--- NOTE | 2024-11-09 14:46 | MHC.PC.OV ---
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 Required: No Silk Screen Etcher: Not Required per policy Accompanied by: Self / Same As Patient Allergies aspirin Allergy (Unknown, Verified 11/09/24 15:03) but can take ibuprofen pregabalin Allergy (Unknown, Verified 11/09/24 15:03) unknown Medication List - Last Reconciled 11/09/24 by Vilma Hanson PA-C albuterol sulfate 90 mcg/actuation (Ventolin HFA) 2 puffs inhalation Q4-6H PRN aspirin 81 mg PO DAILY atorvastatin 80 mg PO DAILY cholecalciferol (vitamin D3) 25 mcg PO DAILY clonidine HCl 0.1 mg PO BID PRN docusate sodium (Colace) 100 mg PO DAILY duloxetine 60 mg PO DAILY fluticasone propionate 50 mcg/actuation (Flonase Allergy Relief) 1 spray intranasal DAILY 30 days gabapentin 300 mg PO TID hydrochlorothiazide 12.5 mg PO DAILY lidocaine 5% 2 patches topical DAILY PRN lisinopril 20 mg PO DAILY methadone (Methadone Intensol) 55 mg PO DAILY omeprazole 20 mg PO BID zolpidem 10 mg PO BEDTIME PRN 30 days Tobacco use date assessed: 11/09/24 Dental Screening Dental Screen Date: 09/27/24 [facility] Medical History (Updated 11/09/24 @ 15:32 by Vilma Hanson PA-C) Hospital discharge follow-up Cough Type II diabetes mellitus Tobacco use disorder Blocked ear Depression, psychotic COVID-19 Hypertension Intertrigo Insomnia GERD (gastroesophageal reflux disease) Encounter for medication review Surgical History History of tubal ligation History of endometrial ablation Family History Father No problems noted. Mother Mental health disorder Brother Congenital cardiomyopathy Sister Cardiomyopathy Other Substance use disorder Social History Household Members: None Housing: Apartment Do you presently have visiting nurse or other home services: No Alcohol intake: never Comment: Sitter for SI Patient Tobacco Use Status: Former Tobacco user (january 11, 2024) Tobacco use type: Cigarette Cigarettes Per Day: 2 e-Cigarette/Vaping Use: Never Used Second Hand Smoke Exposure: Yes Substance Use Type: Crack/Cocaine and Opiates service: No Current occupational status: disabled Sexual orientation: Did not discuss. Cognitive needs: No Hearing needs: No Vision needs: Yes (Glasses) Questionnaire Thrive Questionnaire Date Thrive assessed: 09/27/24 MAGGI-7 AMB Questionnaire MAGGI-7 Date MAGGI - 7 assessed: 09/27/24 Source: Developed by Drs. Vishnu Nelson, Lilian Tucker, Amos Peña and colleagues, with an educational gaye from [employer]. Physical exam (Primary Care) Vital Signs: Last Vital Signs Temp 96.2 F L 11/09/24 14:48 Pulse 81 11/09/24 14:48 BP 130/66 11/09/24 14:48 Pulse Ox 95 11/09/24 14:48 Oxygen Delivery Method Room Air 11/09/24 14:48 Care Plan Goal for BP management: <130/80 BMI result Body Mass Index 31.2 BMI Assessment/Plan discussion: High BMI High, discussed plan: lifestyle, weight reduction, dietary, physical activity and alcohol moderation Tobacco/Smoking Status: Tobacco use Status Tobacco use date assessed 11/09/24 11/09/24 14:54 Patient Tobacco Use Status Former Tobacco user (january 10, 11/09/24 14:54 2023) Tobacco use type Cigarette 11/09/24 14:54 e-Cigarette/Vaping Use Never Used 11/09/24 14:54 Thrive Assessment: Date of Thrive Assessment Date Thrive assessed 09/27/24 11/09/24 14:54 Coding Level of Care Code Est Pt Level 4 (28808) Complex EM visit Add On G2211 Diagnoses Cough R05.9 Tobacco use disorder F17.200 Depression, psychotic F32.3 Nicotine dependence F17.200 Obesity (BMI 30-39.9) E66.9 Fibromyalgia M79.7 Sleep apnea G47.30 Constipation K59.00 Insomnia G47.00 Anxiety and depression F41.9; F32.A Vitamin D deficiency E55.9 Lacunar infarction I63.81 Polysubstance abuse F19.10 Essential hypertension I10 Hypertension type: essential hypertension Gastroesophageal reflux disease without esophagitis K21.9 Esophagitis presence: without esophagitis Type II diabetes mellitus E11.9 Hospital discharge follow-up Z09 Assessment & Plan Assessment & Plan (1) Cough: Code(s): R05.9 - Cough, unspecified Category: Medical Plan: Patient most likely bronchitis or chronic cough from asthma/COPD. Will prescribe a short course of Augmentin and Claritin D. Sent for outpatient labs and a chest x-ray. Condition is chronic and stable continue to monitor. (2) Tobacco use disorder: Code(s): F17.200 - Nicotine dependence, unspecified, uncomplicated Category: Medical Plan: Condition is chronic and stable continue to monitor. (3) Depression, psychotic: Code(s): F32.3 - Major depressive disorder, single episode, severe with psychotic features Category: Medical Plan: Patient currently on clonidine 0.1 mg p.o. b.i.d. p.r.n. as needed, duloxetine 60 mg daily, Ambien 10 mg at bedtime. Condition is chronic and stable continue to monitor. (4) Nicotine dependence: Code(s): F17.200 - Nicotine dependence, unspecified, uncomplicated Category: Medical Plan: Condition is chronic and stable continue to monitor. (5) Obesity (BMI 30-39.9): Code(s): E66.9 - Obesity, unspecified Category: Medical Plan: Patient will improve her diet and exercise regimen. Condition is chronic and stable continue to monitor (6) Fibromyalgia: Code(s): M79.7 - Fibromyalgia Category: Medical Plan: Condition is chronic and stable continue to monitor. (7) Sleep apnea: Code(s): G47.30 - Sleep apnea, unspecified Category: Medical Plan: Condition is chronic and stable continue to monitor. (8) Constipation: Code(s): K59.00 - Constipation, unspecified Category: Medical Plan: Will refill the patient's Colace. Condition is chronic and stable continue to monitor. (9) Insomnia: Code(s): G47.00 - Insomnia, unspecified Category: Medical Plan: Patient to continue Ambien at bedtime 10 mg. Condition is chronic and stable continue to monitor. (10) Anxiety and depression: Code(s): F41.9 - Anxiety disorder, unspecified; F32.A - Depression, unspecified Category: Medical Plan: Patient to continue Ambien, duloxetine and clonidine. Condition is chronic and stable continue to monitor. (11) Vitamin D deficiency: Code(s): E55.9 - Vitamin D deficiency, unspecified Category: Medical Plan: Patient to continue vitamin-D supplements 25 mcg daily. Condition is chronic and stable continue to monitor (12) Lacunar infarction: Code(s): I63.81 - Other cerebral infarction due to occlusion or stenosis of small artery Category: Medical Plan: Patient to continue baby aspirin 81 mg daily, atorvastatin 80 mg daily, hydrochlorothiazide 12.5 mg daily, lisinopril 20 mg daily. Condition is chronic and stable continue to monitor. (13) Polysubstance abuse: Code(s): F19.10 - Other psychoactive substance abuse, uncomplicated Category: Medical Plan: Patient to continue methadone. Condition is chronic and stable continue to monitor (14) Hypertension: Code(s): I10 - Essential (primary) hypertension Category: Medical Qualifiers: Hypertension type: essential hypertension Qualified Code(s): I10 - Essential (primary) hypertension Plan: BP Goal <130/80. Patient to continue baby aspirin 81 mg daily, atorvastatin 80 mg daily, hydrochlorothiazide 12.5 mg daily, lisinopril 20 mg daily. Condition is chronic and stable continue to monitor. (15) GERD (gastroesophageal reflux disease): Code(s): K21.9 - Gastro-esophageal reflux disease without esophagitis Category: Medical Qualifiers: Esophagitis presence: without esophagitis Qualified Code(s): K21.9 - Gastro-esophageal reflux disease without esophagitis Plan: Patient currently on omeprazole 20 mg b.i.d.. Condition is chronic and stable continue to monitor. (16) Type II diabetes mellitus: Code(s): E11.9 - Type 2 diabetes mellitus without complications Category: Medical Plan: Patient is currently not on any type 2 diabetes medications. Her last A1c level was done last month and was 6.1. Condition is chronic and stable continue to monitor. (17) Hospital discharge follow-up: Code(s): Z09 - Encounter for follow-up examination after completed treatment for conditions other than malignant neoplasm Category: Medical Plan: See above and below for plan. Plan Plan In light of the patient's previous bacterial pneumonia episode, I will order laboratory evaluations, including a blood test panel, to identify any electrolyte abnormality given the reported dizziness. Additional diagnostics such as a chest x-ray are warranted to ensure full pulmonary recovery. A treatment plan involving Augmentin for possible bronchitis and Claritin D for hearing obstruction is suggested. I have refilled her current medications, ensuring the patient has all required prescriptions for her hypertension and symptom management. She is encouraged to monitor and manage her blood pressure vigilantly. Further follow-up is suggested to manage ongoing symptoms and revise the medication regimen if required. Orders: Orders Liver Panel Today Z00.00 - Encounter for general adult medical examination without abnormal findings Vitamin B1 Today Z00.00 - Encounter for general adult medical examination without abnormal findings Vitamin B12 and Folate Today Z00.00 - Encounter for general adult medical examination without abnormal findings Vitamin D 25-OH Total Today Z00.00 - Encounter for general adult medical examination without abnormal findings XR chest 2V Today R05.9 - Cough, unspecified Complete Blood Count Auto Diff Today Z00.00 - Encounter for general adult medical examination without abnormal findings Comprehensive Met. Panel Today Z00.00 - Encounter for general adult medical examination without abnormal findings Hemoglobin A1c Today Z00.00 - Encounter for general adult medical examination without abnormal findings Magnesium Today Z00.00 - Encounter for general adult medical examination without abnormal findings TSH reflex Free T4 Today Z00.00 - Encounter for general adult medical examination without abnormal findings SARS-CoV2/FLU/RSV Today R05.9 - Cough, unspecified Medications: New amoxicillin-pot clavulanate 875-125 mg 1 tab PO BID 10 days 20 tabs 0RF loratadine-pseudoephedrine 5-120 mg ER (Claritin-D 12 Hour) 1 tab PO Q12H 30 tabs 0RF Changed From gabapentin 300 mg PO TID 90 caps 1RF To gabapentin 300 mg PO TID 90 days 270 caps 1RF From clonidine HCl 0.1 mg PO BID PRN 180 tabs 1RF anxiety, hyperarousal To clonidine HCl 0.1 mg PO BID 3 months PRN 180 tabs 1RF anxiety, hyperarousal Refilled zolpidem 10 mg PO BEDTIME 30 days PRN 30 tabs 0RF insomnia duloxetine 60 mg PO DAILY 90 caps 1RF aspirin 81 mg PO DAILY 90 tabs 0RF albuterol sulfate 90 mcg/actuation (Ventolin HFA) 2 puffs inhalation Q4-6H PRN 18 grams 0RF for wheezing cholecalciferol (vitamin D3) 25 mcg PO DAILY 90 tabs 0RF lidocaine 5% 2 patches topical DAILY PRN 30 patches 0RF for pain M25.512 - Pain in left shoulder, M54.50 - Low back pain, unspecified atorvastatin 80 mg PO DAILY 90 tabs 0RF hydrochlorothiazide 12.5 mg PO DAILY 90 tabs 0RF I95.9 - Hypotension, unspecified lisinopril 20 mg PO DAILY 90 tabs 0RF I95.9 - Hypotension, unspecified omeprazole 20 mg PO BID 180 tabs 1RF K21.9 - Gastro-esophageal reflux disease without esophagitis docusate sodium (Colace) 100 mg PO DAILY 90 caps 0RF fluticasone propionate 50 mcg/actuation (Flonase Allergy Relief) administer into each nostril 1 spray intranasal DAILY 30 days 100 mL 0RF H93.8X9 - Other specified disorders of ear, unspecified ear Patient Instructions: Patient Instructions - Ensure completion of ordered blood work for follow-up assessment. - Follow up with chest x-ray as discussed; consult if further symptoms persist. - Begin prescribed medication regimen of Augmentin and Claritin D as directed to alleviate bronchitis-like symptoms and ear congestion. - Maintain regular checks and medication adherence for established hypertension management. - Report any exacerbation of symptoms or new issues. - Schedule a follow-up for review of blood work results and further management. Scribe Plan - Not visible on output: History of Present Illness The patient is a 63-year-old female presenting with a primary concern of post-discharge evaluation for URI, complemented by ongoing respiratory symptoms. Initially reporting to [facility] on October 22 due to three days of progressive respiratory difficulties, the patient underwent overnight observation and administration of inhaled and intravenous therapies with subsequent discharge. At home, she has continued on prednisone but has denied additional use of any recent antibiotics. The patient acknowledges ongoing use of albuterol and Spiriva inhalers, with uncertainties regarding another respiratory medication starting with R. In recent days, she has experienced abdominal cramping, profound fatigue, an absence of appetite, increased sweating, and a mucus-producing cough. No history of fever, chills, or sick contacts were shared. Currently, her medication regimen includes Ambien, gabapentin, duloxetine, clonidine, and Aspirin for essential hypertension management. She faces issues with timely medication refills, particularly those intended for the next 90-day period. A history of scheduled but missed blood work necessitates further investigative follow-up. She reports she continues with a cough with chest congestion and intermittent sputum production. She also admits to intermittent dizziness, fatigue. Reports mild abdominal cramping. She denies any chest pain, shortness of breath, dyspnea on exertion, orthopnea, leg swelling or calf tenderness. She denies any hemoptysis. She denies any other symptoms related to this. She would like a refill on all her medications. She has a nurse that gives her medications daily. She reports she can not get the blood work done today or the chest x-ray as she has something to do at 16:00 but did not want to discuss what it was. Review of Systems - Respiratory: Reports cough with phlegm, past episodes of shortness of breath. - Gastrointestinal: Reports abdominal cramping. - Neurological: Reports dizziness. - General: Reports fatigue, lack of energy, excessive sweating. - Skin: Reports no lesions or rashes. Physical Exam Appearance: Alert. Oriented X3. No acute distress. Head: Normal external exam. Normocephalic. Atraumatic. Eyes: Pupils are equal, round, and reactive to light. Extraocular movements intact. Conjunctiva and sclera normal. Eyelids normal. Ears: External auditory canal normal. Tympanic membranes normal. No significant wax buildup. Throat: Pharynx normal. Uvula midline. Moist mucous membranes. Neck: Normal inspection. Neck supple. Full range of motion. No adenopathy. Thyroid Normal. No meningeal signs. No neck mass noted. Cardiovascular: Normal heart rate and rhythm. Heart sound normal. No murmurs noted. Pulses normal throughout. Respiratory: No respiratory distress. Painless inspiration. Breath sounds normal. No wheezes/rales/rhonchi noted. Chest nontender. No accessory muscle usage noted or decreased air movement noted. Lungs sound pretty good, no signs of pneumonia. Abdomen: Soft and nontender. Bowel sounds normal in all 4 quadrants. No distention noted. No organomegaly noted. No visible injury noted. Back: No costovertebral angle tenderness. Full range of motion noted. Skin: Skin warm and dry. Normal skin color. Normal skin turgor. No rashes/lesions/lacerations noted. Extremities: No lower extremity edema. Extremities exhibit normal range of motion. Extremities nontender. Patient reports leg swelling. Neuro: Oriented X 3. No motor deficit. No sensory deficit. Reflexes normal. Patient reports dizziness. Patient was informed and verbally consented to the use of an ambient scribe for clinic note documentation during this visit. Discussion Notes During our discussion, I explained the necessity of conducting blood tests to examine for potential imbalances in electrolytes due to the patient's fatigue and dizziness. We deliberated on the prospects of possible pneumonia, eventually determining that a chest x-ray would serve to preemptively exclude any complications. I related that symptoms suggestive of bronchitis warranted a course of Augmentin, which was prescribed, alongside Claritin D for complaint of aural congestion. Additionally, I refilled maintenance medications, coaching her on the importance of maintaining adequate refills in advance. A follow-up was encouraged post-blood work completion to secure resolution of symptoms and reassessment of her ongoing medical needs.
[2024-11-09 14:48] VITALS: BP 130/66; PULSE 81; TEMP 35.7; O2SAT 95; BMI 31.2
--- OUTSIDE RECORDS SUMMARY | 2024-11-09 16:41 | XMS_ITS | Clinical Summary ---
Author Organization [facility] Address [address] [place] [address] Care Team Providers Care Nursery Hand Name Role Phone Ivan Rankin DO Primary Care Provider [phone] Surgical History Surgery Date Site/Laterality Comments TUBAL LIGATION PROCEDURE: HISTORICAL TUBAL LIGATION VAGINAL DELIVERY PROCEDURE: [place] VAGINAL DELIVERY ONLY; COMMENT: 4 ESOPHAGOGASTRODUODENOSCOPY 10/23/09 PROCEDURE: [place] ESOPHAGOGASTRODUODENOSCOPY TRANSORAL DIAGNOSTIC; COMMENT: Corral's esophagus, H.H; [...] Cervical Cancer Screening: P ap Smear 12/21/1983 Pneumococcal Vaccine: 50+ Ye ars (1 of 1 - PCV) 2012 Zoster Vaccines (1 of 2) 2012 COVID-19 [...] patient's age to complete this topic Meningococcal B Vacine Aged Out No lo nger eligible based on patient's age to complete [...] Documents on File Type Date Recorded 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
== END 2024-11-09 16:09 | disposition home or self-care (01) ==
PROVIDERS: PCP Internal Medicine; Visit Provider Physician Assistant Medical
DX: E11.9 Type 2 diabetes mellitus without complications (principal); F32.3 Major depressive disorder, single episode, severe with psychotic features; I63.81 Other cerebral infarction due to occlusion or stenosis of small artery; F19.10 Other psychoactive substance abuse, uncomplicated; R05.9 Cough, unspecified; F17.200 Nicotine dependence, unspecified, uncomplicated; E66.9 Obesity, unspecified; M79.7 Fibromyalgia; G47.30 Sleep apnea, unspecified; K59.00 Constipation, unspecified; G47.00 Insomnia, unspecified; F41.9 Anxiety disorder, unspecified

== ENCOUNTER → 2024-11-09 14:31 | Outpatient (BNVA) | payer OTHER, SELFPAY | PROVIDERS: PCP Internal Medicine; Visit Provider Physician Assistant Medical | DX: Z09 Encounter for follow-up examination after completed treatment for conditions other than malignant neoplasm (principal); R05.9 Cough, unspecified; F32.3 Major depressive disorder, single episode, severe with psychotic features; E66.9 Obesity, unspecified; Z68.31 Body mass index [BMI] 31.0-31.9, adult; M79.7 Fibromyalgia; G47.30 Sleep apnea, unspecified; K59.00 Constipation, unspecified; G47.00 Insomnia, unspecified; F41.9 Anxiety disorder, unspecified; F32.A Depression, unspecified; E55.9 Vitamin D deficiency, unspecified; I63.81 Other cerebral infarction due to occlusion or stenosis of small artery; F19.10 Other psychoactive substance abuse, uncomplicated; I10 Essential (primary) hypertension; K21.9 Gastro-esophageal reflux disease without esophagitis; E11.9 Type 2 diabetes mellitus without complications; F17.200 Nicotine dependence, unspecified, uncomplicated; Z71.6 Tobacco abuse counseling; Z71.3 Dietary counseling and surveillance | CPT/HCPCS: 99212 ==

== ENCOUNTER 2025-01-03 14:21 | Outpatient (AMB) | payer OTHER, SELFPAY ==
--- NOTE | 2025-01-03 14:24 | MHC.PC.OV ---
Vital Signs 01/03/25 14:26 Height 5 ft 3 in Weight 183 lb 2 oz BMI 32.4 BP 130/80 Blood Pressure Location Lt brachial Position Sitting Pulse 71 Pulse Source Pulse Oximeter Temp 96.4 F L Temp Source Temporal Artery Scan Pulse Oximetry (%) 98 Oxygen Delivery Method Room Air Intake Visit Reasons: 3mth f/u - see comments Intake Note: Patient is here to follow up on DM, Fibromyalgia. Hemstitching Machine Operator Required: No Cold Rolling Coordinator: Not Required per policy Accompanied by: Self / Same As Patient Allergies aspirin Allergy (Unknown, Verified 01/03/25 14:26) but can take ibuprofen pregabalin Allergy (Unknown, Verified 01/03/25 14:26) unknown Tobacco use date assessed: 01/03/25 Dental Screening Dental Screen Date: 09/27/24 [facility] Medical History (Updated 11/09/24 @ 15:32 by Vilma Hanson PA-C) Hospital discharge follow-up Cough Type II diabetes mellitus Tobacco use disorder Blocked ear Depression, psychotic COVID-19 Hypertension Intertrigo Insomnia GERD (gastroesophageal reflux disease) Encounter for medication review Surgical History History of colonoscopy (~05/06/11) History of tubal ligation History of endometrial ablation Family History Father No problems noted. Mother Mental health disorder Brother Congenital cardiomyopathy Sister Cardiomyopathy Other Substance use disorder Social History Household Members: None Housing: Apartment Do you presently have visiting nurse or other home services: No Alcohol intake: never Comment: Sitter for SI Patient Tobacco Use Status: Former Tobacco user (january 11, 2024) Tobacco use type: Cigarette Cigarettes Per Day: 2 e-Cigarette/Vaping Use: Never Used Second Hand Smoke Exposure: Yes Substance Use Type: Crack/Cocaine and Opiates service: No Current occupational status: disabled Sexual orientation: Did not discuss. Cognitive needs: No Hearing needs: No Vision needs: Yes (Glasses) Questionnaire Thrive Questionnaire Date Thrive assessed: 09/27/24 MAGGI-7 AMB Questionnaire MAGGI-7 Date MAGGI - 7 assessed: 09/27/24 Source: Developed by Drs. Vishnu LLilian Hoffman, Amos Peña and colleagues, with an educational gaye from [employer]. Physical exam (Primary Care) Vital Signs: Last Vital Signs Temp 96.4 F L 01/03/25 14:26 Pulse 71 01/03/25 14:26 BP 130/80 01/03/25 14:26 Pulse Ox 98 01/03/25 14:26 Oxygen Delivery Method Room Air 01/03/25 14:26 BMI result Body Mass Index 32.4 Tobacco/Smoking Status: Tobacco use Status Tobacco use date assessed 01/03/25 01/03/25 14:33 Patient Tobacco Use Status Former Tobacco user (january 10, 01/03/25 14:25 2023) Tobacco use type Cigarette 01/03/25 14:25 e-Cigarette/Vaping Use Never Used 01/03/25 14:25 Thrive Assessment: Date of Thrive Assessment Date Thrive assessed 09/27/24 01/03/25 14:25 Results AMB Hemoglobin A1c AMB Hemoglobin A1c 6.5 % Last Edit by LADI Ibarra on 01/03/25 14:37 Results Reviewed Results Reviewed: Laboratory Last Values Hgb A1c (Clinic) 6.5 % (4.0-6.0) H 01/03/25 14:24 Coding Level of Care Code Est Pt Level 4 (82455) Complex EM visit Add On G2211 Diagnoses Depression, psychotic F32.3 Polysubstance abuse F19.10 Essential hypertension I10 Hypertension type: essential hypertension Assessment & Plan Assessment & Plan (1) Depression, psychotic: Code(s): F32.3 - Major depressive disorder, single episode, severe with psychotic features Category: Medical Plan: Encouraged patient to keep her appt with the Psychiatrist. (2) Polysubstance abuse: Code(s): F19.10 - Other psychoactive substance abuse, uncomplicated Category: Medical Plan: On methadone (3) Hypertension: Code(s): I10 - Essential (primary) hypertension Category: Medical Qualifiers: Hypertension type: essential hypertension Qualified Code(s): I10 - Essential (primary) hypertension Plan: Condition is stable. Plan History of Present Illness The patient is a 64 year old female presenting with wellness and chronic disease management concerns. She experiences ongoing severe pain due to fibromyalgia, primarily affecting her ability to rise out of bed in the mornings. Despite being on duloxetine, her condition continues to pose significant discomfort. The patient's self-management of her health has been challenged by her fibromyalgia-induced discomfort, resulting in delays in completing her blood work. She also has concerns regarding numbness in her feet. In terms of preventive care, the patient acknowledges the need for a mammogram and colonoscopy. She has been sent a Cologuard kit but has yet to utilize it, citing doubts about its accuracy. Furthermore, there has been no progress in completing blood work as advised previously. She also reports that she is awaiting a psychiatric appointment and continues therapy sessions. Social History - Lives alone and is self-sufficient in cooking but struggles with housework such as laundry and cleaning. - Utilizes transportation services to attend appointments. - Current treatment includes duloxetine for fibromyalgia management. - Completes daily activities generally independently but requires some support with household tasks. Review of Systems - Musculoskeletal: Reports severe pain in the morning, especially affecting the ability to rise from bed. - Neurologic: Reports numbness in the feet. - Reproductive/Breast: Denies recent mammogram. - Gastrointestinal: Screened by Mehdi for colonoscopy; no prior completion. - Mental Health: Engaged in therapy but psychiatric follow-up not scheduled. Physical Exam General: Cooperative and healthy appearing Nutritional Appearance: Well nourished Orientation/consciousness: Patient oriented x3 Limitations: No limitations Head: Normal to inspection General: Appearance normal, both eyes and all related structures Neck: Normal visual inspection Chest: Normal palpation of entire chest wall Respiratory: N ormal respiratory effort Neurology: Patient oriented x3, reports numbness in feet. Results Plan Management includes continuation of duloxetine for fibromyalgia, with further blood work advised to examine her foot numbness. Preventive screening prioritizes scheduling a mammogram and use of the Cologuard kit. Coordination with psychiatric services for follow-up is necessary. Additionally, assistance with stuffed casing tier should be facilitated to help maintain her living situation. Patient was informed and verbally consented to the use of an ambient scribe for clinic note documentation during this visit. Discussion Notes I discussed the importance of maintaining her current fibromyalgia treatment with duloxetine while also ensuring completion of blood work to help evaluate symptoms of numbness in her feet. I explained the significance of regular preventive screenings such as mammograms, which she agreed to schedule soon, and use of the Cologuard kit to monitor for colorectal issues despite initial skepticism. We also discussed getting in contact with psychiatric services to ensure ongoing mental health support. I made arrangements to potentially provide some assistance with household tasks, aiding her in managing life independently. Patient Instructions - Continue taking duloxetine as prescribed. - Schedule a mammogram soon. - Use the Cologuard kit and return as directed. - Schedule and complete pending blood work. - Ensure follow-up appointment with psychiatry. - Contact behaviour support teacher for assistance with household tasks. Orders: Orders AMB Hemoglobin A1c Today E11.9 - Type 2 diabetes mellitus without complications Complete Blood Count no Diff Today F19.10 - Other psychoactive substance abuse, uncomplicated, F32.3 - Major depressive disorder, single episode, severe with psychotic features, I10 - Essential (primary) hypertension Lipid Panel Today F19.10 - Other psychoactive substance abuse, uncomplicated, F32.3 - Major depressive disorder, single episode, severe with psychotic features, I10 - Essential (primary) hypertension Thyroid Stimulating Hormone Today F19.10 - Other psychoactive substance abuse, uncomplicated, F32.3 - Major depressive disorder, single episode, severe with psychotic features, I10 - Essential (primary) hypertension MM screening mammo BI Today Z12.31 - Encounter for screening mammogram for malignant neoplasm of breast Hemoglobin A1c Today F19.10 - Other psychoactive substance abuse, uncomplicated, F32.3 - Major depressive disorder, single episode, severe with psychotic features, I10 - Essential (primary) hypertension Basic Metabolic Panel Today F19.10 - Other psychoactive substance abuse, uncomplicated, F32.3 - Major depressive disorder, single episode, severe with psychotic features, I10 - Essential (primary) hypertension Liver Panel Today F19.10 - Other psychoactive substance abuse, uncomplicated, F32.3 - Major depressive disorder, single episode, severe with psychotic features, I10 - Essential (primary) hypertension UA and rflx microscopic Today F19.10 - Other psychoactive substance abuse, uncomplicated, F32.3 - Major depressive disorder, single episode, severe with psychotic features, I10 - Essential (primary) hypertension
[2025-01-03 14:26] VITALS: BP 130/80; PULSE 71; TEMP 35.8; O2SAT 98; BMI 32.4
--- OUTSIDE RECORDS SUMMARY | 2025-01-03 16:53 | XMS_ITS | Clinical Summary ---
Author Organization [facility] Address [address] [place] [address] Care Team Providers Care Auction Block Clerk Name Role Phone Ivan Rankin DO Primary Care Provider [phone] Surgical History Surgery Date Site/Laterality Comments TUBAL LIGATION PROCEDURE: HISTORICAL TUBAL LIGATION VAGINAL DELIVERY PROCEDURE: [place] VAGINAL DELIVERY ONLY; COMMENT: 4 ESOPHAGOGASTRODUODENOSCOPY 10/23/09 PROCEDURE: [place] ESOPHAGOGASTRODUODENOSCOPY TRANSORAL DIAGNOSTIC; COMMENT: Corral's esophagus, H.H; [...] - 2023-2 5 season) 2024 Influenza Vaccine (Season Ended) 2025 RSV Immunization Adult Patie nts (1 - 1-dose 75+ series) 2037 HIB [...] age to complete this topic Meningococcal B Vaccine Aged Out No l onger eligible based on patient's age to complete [...] Documents on File Type Date Recorded Patient Waistline Joiner Expl anation Health Care Decision (hx) 06/26/2021 AD SALDIVAR DIRECTIVE Health Care Decision (hx) 06/26/2021 AD SALDIVAR DIRECTIVE Care Teams Auction Block Clerk Relationship Specialty Start Date End Date Ivan Rankin DO [address] [place] [id number] PCP - General 03/16/17
== END 2025-01-03 15:23 | disposition home or self-care (01) ==
LOC: HO.HMCH 14:22
PROVIDERS: PCP Internal Medicine; Visit Provider Internal Medicine
DX: F32.3 Major depressive disorder, single episode, severe with psychotic features (principal); F19.10 Other psychoactive substance abuse, uncomplicated; I10 Essential (primary) hypertension; E11.9 Type 2 diabetes mellitus without complications

== ENCOUNTER → 2025-01-03 14:21 | Outpatient (BNVA) | payer OTHER, SELFPAY | PROVIDERS: PCP Internal Medicine; Visit Provider Internal Medicine | DX: F32.3 Major depressive disorder, single episode, severe with psychotic features (principal); F19.10 Other psychoactive substance abuse, uncomplicated; I10 Essential (primary) hypertension | CPT/HCPCS: 83036; 99212 ==

== ENCOUNTER 2025-01-17 11:22 | Outpatient (REF) | payer OTHER, SELFPAY ==
[2025-01-17 12:09] LABS: Hematocrit 38.6 % (37.0-47.0); Mean Corpuscular HGB Conc 33.7 g/dl (31.0-35.0); Mean Corpuscular Hemoglobin 30.1 pg (27.0-33.0); Mean Corpuscular Volume 89.4 fL (80.0-98.0); Mean Platelet Volume 10.3 fL (9.4-12.3); Platelet Count 272 X10*3/uL (160-400); Red Blood Count 4.32 X10*6/uL (4.20-5.50); Red Cell Distribution Width 13.6 % (11.0-16.0); White Blood Count 7.7 X10*3/uL (4.8-10.8)
[2025-01-17 12:28] LABS: Appearance Urine Hazy; Color Urine Yellow; Glucose Urine UA Negative (Negative); Leukocyte Esterase Urine Moderate (2+) (Negative); Nitrite Urine Negative (Negative); Specific Gravity - Urine >= 1.030 (1.005-1.025); UMIC TRIGGER UA YES; Urine Blood Negative (Negative); Urine Ketones Trace mg/dL (Negative); Urine Protein Trace mg/dL (Neg-Trace)
[2025-01-17 12:30] LABS: Estimated Average Glucose 137 mg/dL; Hemoglobin A1C 157.4018 umol/L; Hemoglobin A1c % 6.4 % (<6.0); Total Hemoglobin (HGBA1C) 3377.1169 umol/L
[2025-01-17 12:50] LABS: RBC Urine 0-2 /HPF (0-2); WBC Urine 0-5 /HPF (0-5)
[2025-01-17 12:51] LABS: Bacteria Urine 1+ (None Seen); Hyaline Casts Urine 0-2 /LPF (0-2); Transitional Epi Cells Urine Present
--- OUTSIDE RECORDS SUMMARY | 2025-01-17 12:53 | XMS_ITS | Clinical Summary ---
Author Organization [facility] Address [address] [place] [address] Care Team Providers Care Fabrication Specialist Name Role Phone Ivan Rankin DO Primary Care Provider [phone] Surgical History Surgery Date Site/Laterality Comments TUBAL LIGATION PROCEDURE: HISTORICAL TUBAL LIGATION VAGINAL DELIVERY PROCEDURE: [place] VAGINAL DELIVERY ONLY; COMMENT: 4 ESOPHAGOGASTRODUODENOSCOPY 10/23/09 PROCEDURE: [place] ESOPHAGOGASTRODUODENOSCOPY TRANSORAL DIAGNOSTIC; COMMENT: Corral's esophagus, H.H; [...] Documents on File Type Date Recorded Patient Product Test Engineer Expl anation Health Care Decision (hx) 06/26/2021 AD SALDIVAR DIRECTIVE Health Care Decision (hx) 06/26/2021 AD SALDIVAR DIRECTIVE Care Teams Fabrication Specialist Relationship Specialty Start Date End Date Ivan Rankin DO [address] [place] [id number] PCP - General 03/16/17
[2025-01-17 13:07] LABS: Alanine Aminotransferase 28 U/L (0-31); Albumin Level 3.9 g/dL (3.5-5.0); Alkaline Phosphatase 98 U/L (39-117); Anion Gap 12 (12-20); Aspartate Amino Transferase 29 U/L (5-31); Bilirubin Direct 0.1 mg/dL (0.0-0.5); Bilirubin Total 0.3 mg/dL (0.0-1.0); Blood Urea Nitrogen 12 mg/dL (9-16); Calcium 9.7 mg/dL (8.4-10.2); Carbon Dioxide 31 mmol/L (22-29); Chloride 104 mmol/L (96-108); Cholesterol 113 mg/dL (<200); Estimated Glomerular Filt Rate > 60; Glucose Random 100 mg/dL (60-115); HDL Cholesterol 41 mg/dL (>40); LDL Cholesterol Calculated 52 mg/dL (<100); Potassium 3.1 mmol/L (3.3-5.1); Sodium 144 mmol/L (135-145); Total Protein 6.5 g/dL (6.5-8.0); Triglycerides 100 mg/dL (<150)
[2025-01-17 13:24] LABS: Thyroid Stimulating Hormone 1.34 uIU/mL (0.32-4.0)
== END 2025-01-17 11:23 | disposition home or self-care (01) ==
LOC: HO.LAB 11:22
PROVIDERS: PCP Internal Medicine; Visit Provider Internal Medicine
DX: I10 Essential (primary) hypertension (principal); F32.3 Major depressive disorder, single episode, severe with psychotic features; F19.10 Other psychoactive substance abuse, uncomplicated
CPT/HCPCS: 36415; 80048; 80061; 80076; 81001; 83036; 84443; 85027

== ENCOUNTER → 2025-05-10 23:59 | Outpatient (BNV) | payer OTHER, SELFPAY | PROVIDERS: PCP Internal Medicine; Visit Provider Internal Medicine | DX: I10 Essential (primary) hypertension (principal); F06.30 Mood disorder due to known physiological condition, unspecified; F41.8 Other specified anxiety disorders | CPT/HCPCS: G0179 ==

== ENCOUNTER 2025-06-17 16:03 | Outpatient (AMB) | payer OTHER, SELFPAY ==
[2025-06-17 16:07] VITALS: BP 146/92; PULSE 80; TEMP 36.1; O2SAT 98; BMI 30.8
--- NOTE | 2025-06-17 16:07 | MHC.PC.OV ---
Vital Signs 06/17/25 16:07 Height 5 ft 3 in Weight 174 lb BMI 30.8 BP 146/92 H Blood Pressure Location Lt brachial Position Sitting Pulse 80 Pulse Source Pulse Oximeter Temp 97.0 F Temp Source Temporal Artery Scan Pulse Oximetry (%) 98 Oxygen Delivery Method Room Air Intake Visit Reasons: dizzy Allergies aspirin Allergy (Unknown, Verified 06/17/25 16:12) but can take ibuprofen pregabalin Allergy (Unknown, Verified 06/17/25 16:12) unknown Tobacco use date assessed: 06/17/25 Dental Screening Dental Screen Date: 06/17/25 Did you have a dental visit in the last 12 months?: Yes Did you have a dental problem in the last 6 months where you did not have access to dental care?: No Was dental information given to patient?: Patient has dentist HPI HPI Comments History of Present Illness Details The patient is a 64-year-old female presenting with hip pain and dizziness. The hip pain began two days after a fall on her buttocks, which occurred four days prior to the visit. The pain is persistent, affecting both the back and front of the hip region, and the patient uses a cane for ambulation. The patient experiences dizziness, particularly when standing up after sitting, indicative of orthostatic hypotension. She has a history of frequent head trauma, including a fall in the tub several months ago, but denies any recent incidents. The patient has a history of diabetes mellitus and is due for an A1c test. She is not taking aspirin due to a suspected allergy causing nausea. [facility] Medical History Hospital discharge follow-up Cough Type II diabetes mellitus Tobacco use disorder Blocked ear Depression, psychotic COVID-19 Hypertension Intertrigo Insomnia GERD (gastroesophageal reflux disease) Encounter for medication review Surgical History History of colonoscopy (~05/06/11) History of tubal ligation History of endometrial ablation Family History Father No problems noted. Mother Mental health disorder Brother Congenital cardiomyopathy Sister Cardiomyopathy Other Substance use disorder Social History Household Members: None Housing: Apartment Do you presently have visiting nurse or other home services: No Alcohol intake: never Comment: Sitter for SI Patient Tobacco Use Status: Current everyday Tobacco user (january 11, 2024) Tobacco use type: Cigarette Cigarettes Per Day: 3 e-Cigarette/Vaping Use: Never Used Second Hand Smoke Exposure: Yes Substance Use Type: Crack/Cocaine and Opiates service: No Current occupational status: disabled Sexual orientation: Did not discuss. Cognitive needs: No Hearing needs: No Vision needs: Yes (Glasses) Questionnaire PHQ-9 Over the last 2 weeks, how often have you been bothered by any of the following problems? 1. Little interest or pleasure in doing things: nearly every day 2. Feeling down, depressed, or hopeless: nearly every day 3. Trouble falling or staying asleep, or sleeping too much: several days 4. Feeling tired or having little energy: more than half the days 5. Poor appetite or overeating: more than half the days 6. Feeling bad about yourself - or that you are a failure or have let yourself or your family down: more than half the days 7. Trouble concentrating on things, such as reading the newspaper or watching television: more than half the days 8. Moving or speaking so slowly that other people could have noticed. Or the opposite - being so fidgety or restless that you have been moving around a lot more than usual: more than half the days 9. Thoughts that you would be better off or of hurting yourself in some way: not at all Total score: 17 Depression Screening Interpretation: Positive Depression Screening Follow-up: Existing condition and In treatment Depression Screening Done: Yes Source: Developed by Drs. Vishnu Nelson, Lilian Tucker, Amos Peña and colleagues, with an educational gaye from [employer]. Thrive Questionnaire Date Thrive assessed: 09/27/24 I am a: Patient What is your living situation today?: I have a steady place to live Within the past 12 months, did the food you bought not last and you didn't have the money to get more?: Never true Within the past 12 months, did you worry whether your food would run out before you got money to buy more?: Never true Do you have trouble paying for medicines?: No Do you have trouble getting transportation to medical appointments?: No Do you have trouble paying your heating and electricity bill?: No Do you have trouble taking care of your child, family member or friend?: No Do you have trouble with day-to-day activities such as bathing, preparing meals, shopping, managing finances, etc.?: No Are you currently unemployed and looking for a job?: Yes Are you interested in more education?: Yes Please select the resources that you would like help with: None Currently or been in a relationship where the following occur: No concerns reported THRIVE Score: 0 AUDIT C Alcohol Use Questionnaire (AUDIT-C) 1. How often do you have a drink containing alcohol?: Never 3. How often do you have six or more drinks on one occasion?: Never Total Score: 0 MAGGI-7 AMB Questionnaire MAGGI-7 Date MAGGI - 7 assessed: 09/27/24 Feeling nervous, anxious, or on edge: 1 = Several days Not being able to stop or control worryin = Nearly every day Worrying too much about different things: 3 = Nearly every day Trouble relaxin = Nearly every day Being so restless that it is hard to sit still: 3 = Nearly every day Becoming easily annoyed or irritable: 2 = More than half the days Feeling afraid as if something awful might happen: 3 = Nearly every day Total MAGGI-7 score (0-4 normal; 5-9 mild; 10-14 moderate; 15-21 severe): 18 Source: Developed by Drs. Vishnu Nelson, Lilian Tucker, Amos Peña and colleagues, with an educational gaye from [employer] Review of Systems Const Details: Positives besides what was mentioned in HPI are in BOLD Constitutional: No Weight Change, No Fever, No Chills, No Night Sweats, No Fatigue, No Malaise ENT/Mouth: No Hearing Changes, No Ear Pain, No Nasal Congestion, No Sinus Pain, No Hoarseness, No sore throat, No Rhinorrhea, No Swallowing Difficulty Eyes: No Eye Pain, No Swelling, No Redness, No Foreign Body, No Discharge, No Vision Changes Cardiovascular: No Chest Pain, No SOB, No PND, No Dyspnea on Exertion, No Orthopnea, No Claudication, No Edema, No Palpitations Respiratory: No Cough, No Sputum, No Wheezing, No Smoke Exposure, No Dyspnea Gastrointestinal: No Nausea, No Vomiting, No Diarrhea, No Constipation, No Pain, No Heartburn, No Anorexia, No Dysphagia, No Hematochezia, No Melena, No Flatulence, No Jaundice Genitourinary: No Dysmenorrhea, No DUB, No Dyspareunia, No Dysuria, No Urinary Frequency, No Hematuria, No Urinary Incontinence, No Urgency, No Flank Pain, No Urinary Flow Changes, No Hesitancy Musculoskeletal: No Arthralgias, No Myalgias, No Joint Swelling, No Joint Stiffness, No Back Pain, No Neck Pain, No Injury History Skin: No Skin Lesions, No Pruritis, No Hair Changes, No Breast/Skin Changes, No Nipple Discharge Neuro: No Weakness, No Numbness, No Paresthesias, No Loss of Consciousness, No Syncope, No Dizziness, No Headache, No Coordination Changes, No Recent Falls Psych: No Anxiety/Panic, No Depression, No Insomnia, No Personality Changes, No Delusions, No Rumination, No SI/HI/AH/VH, No Social Issues, No Memory Changes, No Violence/Abuse Hx., No Eating Concerns Heme/Lymph: No Bruising, No Bleeding, No Transfusions History, No Lymphadenopathy Endocrine: No Polyuria, No Polydipsia, No Temperature Intolerance Physical exam (Primary Care) Vital Signs: Last Vital Signs Temp 97.0 F 06/17/25 16:07 Pulse 80 06/17/25 16:07 BP 146/92 H 06/17/25 16:07 Pulse Ox 98 06/17/25 16:07 Oxygen Delivery Method Room Air 06/17/25 16:07 BMI result Body Mass Index 30.8 Tobacco/Smoking Status: Tobacco use Status Tobacco use date assessed 06/17/25 06/17/25 16:14 Patient Tobacco Use Status Current everyday Tobacco ( 06/17/25 16:14 january 11, 2024) Tobacco use type Cigarette 06/17/25 16:14 e-Cigarette/Vaping Use Never Used 06/17/25 16:14 PHQ-9: PHQ-9 Score PHQ-9: Total score 16 06/17/25 16:14 Depression Screening Interpretation: Positive Depression Screening Follow-up: Existing condition and In treatment Thrive Assessment: Date of Thrive Assessment Date Thrive assessed 09/27/24 06/17/25 16:14 Currently or been in a relationship where the following occur: No concerns reported Const Other: Pertinent findings are in BOLD GENERAL APPEARANCE NAD, activity normal for age, well developed/ well nourished, no cyanosis, pallor, or diaphoresis. EYES lids/conjunctiva normal. EARS/NOSE/THROAT Mucous membranes moist, nares normal, lips/teeth normal uvula midline without oral pharyngeal erythema, exudate or swelling TMs normal bilaterally. No lymphangitis/lymphedema. HEAD/NECK normocephalic atraumatic, no facial trauma, neck is supple. RESPIRATORY respiratory effort normal, speaks in full sentences, no tripod position, no accessory muscle use. Lungs clear to auscultation without rhonchi, wheezes, rales CARDIAC Regular rate and rhythm, no edema. ABDOMINAL Soft, ND/NT. No evidence of fluid wave. No pulsatile masses on exam, rebound tenderness, Mclean sign or pain over Mcburney's point. MUSCLES/EXTREMITIES No abnormal range of motion, no swelling. SKIN Warm, pink and dry. No rashes, dermatoses, petechiae or lesions. NEUROLOGICAL Speech is clear and appropriate. Normal level of consciousness. Gait and coordination are normal. 5/5 strength in all extremities. PSYCH Normal mood and affect. Judgement/competence is appropriate Results AMB Hemoglobin A1c AMB Hemoglobin A1c 6.7 % Last Edit by Sravanthi Oconnor CMA on 06/17/25 16:23 Results Reviewed Results Reviewed: Laboratory Last Values Hgb A1c (Clinic) 6.7 % (4.0-6.0) H 06/17/25 16:14 Coding Level of Care Code Est Pt Level 4 (42407) Diagnoses Dizziness R42 Hip pain M25.559 Assessment & Plan Assessment & Plan (1) Dizziness: Comment: 2/2 Orthostatic hypotension. Code(s): R42 - Dizziness and giddiness Category: Medical Plan: - Plan to perform head imaging due to history of head trauma and persistent dizziness. (2) Hip pain: Code(s): M25.559 - Pain in unspecified hip Category: Medical Plan: - Plan to perform hip x-rays to rule out fractures or other underlying issues. Plan I discussed with the patient the need for imaging studies to assess her hip pain and dizziness, given her history of falls and head trauma. We talked about the importance of staying hydrated and rising slowly to manage orthostatic hypotension. I also explained the plan to monitor her diabetes with an A1c test. Orders: Orders AMB Hemoglobin A1c Today Z13.9 - Encounter for screening, unspecified CT head/brain wo IV con Today R42 - Dizziness and giddiness XR hip RT min 2V Today M25.559 - Pain in unspecified hip
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
== END 2025-06-17 16:39 | disposition home or self-care (01) ==
LOC: HO.HMCH 16:03
PROVIDERS: PCP Internal Medicine; Visit Provider Internal Medicine
DX: R42 Dizziness and giddiness (principal); M25.559 Pain in unspecified hip; Z13.9 Encounter for screening, unspecified

== ENCOUNTER → 2025-06-17 16:03 | Outpatient (BNVA) | payer OTHER, SELFPAY | PROVIDERS: PCP Internal Medicine; Visit Provider Internal Medicine | DX: R42 Dizziness and giddiness (principal); M25.559 Pain in unspecified hip; E11.9 Type 2 diabetes mellitus without complications; Z91.81 History of falling | CPT/HCPCS: 83036; 99212 ==

== ENCOUNTER 2025-07-05 14:21 | Outpatient (REF) | payer OTHER, SELFPAY ==
--- NOTE | ~2025-07-05 | XR_ITS ---
EXAMINATION: XR HIP, RIGHT CLINICAL INFORMATION: M25.559 - Pain in unspecified hip COMPARISON: Correlated to CT abdomen pelvis dated March 27, 2017. TECHNIQUE: AP and oblique views of the right hip. FINDINGS: Sclerosis along the articular surface of the acetabulum. Asymmetric joint space narrowing, coxofemoral joint. No acute cortical disruption or malalignment. No lytic or blastic lesions. XR/XR hip RT min 2V IMPRESSION: Mild osteoarthrosis/osteoarthritis, right hip. Electronically signed by: Boubacar Avila MD 07/05/2025 02:58 PM EDT
--- OUTSIDE RECORDS SUMMARY | 2025-07-05 16:18 | XMS_ITS | Data Portability ---
Author Organization [facility], Main Office Address [address] [place] [address] Care Team Providers Care Wire Welder Name Role Phone [facility] OTHER KARLY LIU OTHER DANNI DICKINSON OTHER [phone] LIZETTE BAEZA Primary Care Provider [phone] Assessment No assessment recorded. Plan of Treatment [...] By Organization Details Last Modified Time 07/08/2021 [id number] [email or web address] Not available 07/08/2021 21:48:24 07/13/2021 [id number] F/U Appointments : PCP KOURTNEY Has telehealth neuro 07/21/21 @ 0930 -Dr. Dickinson will call Has telehealth psych 08/04/21 @ 1100 with Karly Liu APRN Total time spent on discharge: 40 minutes no scripts needed [email or web address] Not available 07/13/2021 13:32:38 Reason for Referral None Reported. Problems Name Problem SNOMED Code Status Onset Date Resolution Date Notes Provider Name and Address Organization Details Recorded Time Posterior reversible encephalop athy syndrome 722319948 Active 2020 RAVEN KRUSE PA-C [address], [address], [place], [address], [facility] 21:28:10 Occlusion of left pontine artery 968925105 Active 2020 RAVEN KRUSE PA-C [address], [address], [place], [address], [facility] 21:28:29 Oropharyng eal dysphagia 33438908 Active 2020 RAVEN KRUSE PA-C [address], [address], [place], [address], [place] [facility] 21:28:54 Essential hypertensi on 07427773 Active 2020 RAVEN KRUSE PA-C [address], [address], [place], [address], [facility] 21:29:06 Hypertensi ve encephalop athy 36009453 Active 2020 RAVEN KRUSE PA-C [address], [place], [address], [facility] 21:29:15 Abducens nerve palsy 749908712 Active 2020 RAVEN KRUSE PA-C [address], [place], [address], [facility] 21:29:36 Tobacco dependence syndrome 06434945 Active 2020 RAVEN KRUSE PA-C [address], [place], [address], [facility] 21:29:46 Opioid dependence 27068758 Active 2020 on agonist therapy with methadone at [facility] RAVEN KRUSE PA-C [address], [place], [address], [facility] 21:30:15 Gastroesop hageal reflux disease without esophagiti s 941323482 Active 2020 RAVEN KRUSE PA-C [address], [address], [place], [address], [facility] 21:30:24 Chronic constipati on 820515360 Active 2020 RAVEN KRUSE PA-C [address], [place], [address], [facility] 21:30:47 Fibromyalg ia 685277420 Active 2020 RAVEN KRUSE PA-C [address], [address], [place], [address], [facility] 21:35:57 Depressive disorder 12923704 Active 2020 with hx psychotic features RAVEN KRUSE PA-C [address], [address], [place], [address], [facility] 21:37:24 Post-traum atic stress disorder 39383102 Active 2020 RAVEN KRUSE PA-C [address], [address], [place], [address], [facility] 21:37:30 Xeroderma 48099753 Active 2020 RAVEN KRUSE PA-C [address], [address], [place], [address], [facility] 21:37:39 Problem Notes None recorded. Medical Equipment [...] % 108/65 mm[Hg] RAVEN KRUSE PA-C [address], [address], [place], [address], [facility] 21:16:35 Date Recorded Body temperature Respiratory rate Heart rate Oxygen saturation Oxygen saturation in Arterial blood by Pulse oximetry Body weight Body mass index (BMI) Body height Systolic And Diastolic Provider Name and Address Organization Details Last Updated DateTime 97.4 [degF] 18 /min 73 /min 95 % 95 % 70824.7 6 g 95048. 9 kg/m2 7.62 cm 130/71 mm[Hg] RAVEN KRUSE PA-C [address], [address], [place], [address], [facility] 12:40:32 Social History Question Answer Notes LastModified by Organizat ion Details LastModified Time Tobacco Smoking Status Current Every Day Smoker RAVEN KRUSE PA-C [address], [address], [place], [address], [facility] 07/08/2021 13:31:47 Do You Have An Advance Directive? Yes Full Code; No Dialysis; Ok For Short-term Artificial Nutrition; Ok For Short-term Artificial Hydration [email or web address] Information not available 07/08/2021 What Is Your Code Status? Full Code Information not available 07/08/2021 Legal Guardian? No [email or web address] Information not available 07/08/2021 Do You Have A Medical Power Of Television Schedule Coordinator? Yes Valid Copy On Chart, Not Invoked [email or web address] Information not available 07/08/2021 How Much Tobacco Do You Smoke? 0.5 PPD [email or web address] Information not available 07/08/2021 Has Tobacco Cessation Counseling Been Provided? Yes Information not available 07/08/2021 On What Date Was Tobacco Cessation Counseling Provided? 07/08/2021 Information not available 07/08/2021 How Many Years Have You Smoked Tobacco? 30 [email or web address] Information not available 07/08/2021 Sex: Unknown Functional Status Question Answer Note LastModified by Organization D etails LastModified Time Do you or have you ever used any other forms of tobacco or nicotine? No [email or web address] Information not available 07/08/2021 What is your level of alcohol consumption? None [email or web address] Information not available 07/08/2021 Mental Status None recorded. Family History Relationship Description Onset Age of this Age Resolved Age Notes LastModified by Organization Details LastModified Time Unspecified Relation Cerebrovascu lar accident [email or web address] Not available 13:03:00 Medical History No medical history recorded. Gynecological HistoryNo gynecological history recorded. Obstetrics History GPAL:G 0 P 0 0 0 0 Immunizations Vaccine Type Date Status Note Provider Nam e and Address Organization Details Recorded Time COVID-19, mRNA, LNP-S, PF, 30 mcg/0.3 mL dose 02/22/2021 completed RAVEN KRUSE PA-C [address], [address], [place], [address], [facility] [facility] 07/08/2021 13:00:00 COVID-19, mRNA, LNP-S, PF, 30 mcg/0.3 mL dose 03/16/2021 completed RAVEN KRUSE PA-C [address], [address], [place], [address], [facility] [facility] 07/08/2021 13:00:05 Past Encounters Encounter ID Performer Location Encounter Start Date Encounter Closed Date Diagnosis/Indication Diagnosis SNOMED-CT Code Diagnosis ICD10 Code Diagnosis IMO Codes Diagnosis Note [id number] RAVEN KRUSE PA-C [facility] on [address] [place] [address] 07/08/2021 12:55:35 07/14/2021 09:48:52 Posterior reversible encephalopathy syndrome 862401018 I67.83 PT/OTHas telehealth neuro 07/21/21 @ 8565-Dr. Vanessa pulliam will callContin ue:-ASA 81 mg po q am-Lipitor 80 mg po qhs Occlusion of left pontine artery 375885282 I65.8 as above Hypertensi ve encephalopathy 74370340 I67.4 Continue:- HCTZ 12.5 mg po q am-Lisinop ril 20 mg po q amMonitor BPs and adjust meds prn Essential hypertension 48057087 I10 as above Gastroesop hageal reflux disease without esophagitis 975085401 K21.9 Continue Prilosec 20 mg po daily Fibromyalgia 549829914 M 79.7 On methadone for opiate use d/o but also helps with her painContin ue:-Cymbal ta 120 mg po q 1200-Gabap entin 300 mg po q 1500 and qhs Chronic constipation 236 248427 K59.09 Continue:- Colace 100 mg po bid-Senna 2 po qhsHouse bowel protocol Abducens nerve palsy 398 162477 H49.22 PT/OTConsi cynthia ophtho consult-pr ism glasses might help Depressive disorder 9958 9007 F32.A With hx psychotic features Continue:- Cymbalta 120 mg po q 1200-Abili fy 10 mg po qhs-Wellbu jay SR 150 mg po q am Has telehealth psych 08/04/21 @ 1100 with Karly Noe 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 Opioid dependence 422500 00 F11.20 Continue methadone 50 mg po q am via OTP at [facility] Oropharyng eal dysphagia 90341706 R13.12 Modified dietSLP consult Post-traum atic stress disorder 99434552 F43.10 On medsPsych f/u Tobacco de pendence syndrome 65149152 F17.200 Counseled 4 minutes on the importance of cessation; not interested in quitting Xeroderma 45403912 E50.8 Lac-hydrin Monitor and f/u prn Advance care planning 71 4214956 Z71.89 Met with pt, who is her [...] hydration Total time spent: 18 minutes Anxiety 41052069 F41.9 Clonidine 0.1 mg po qhs and q 6 h prn anxiety-re view prn clonidine in 14 days-prn not to be given within 4 hours of scheduled dose [id number] RAVEN KRUSE PA-C [facility] on [address] [place] [address] 07/13/2021 12:37:44 07/15/2021 11:21:48 Occlusion of left pontine artery 153898722 I65.8 as above Posterior reversible encephalopathy syndrome 939813668 I67.83 [facility]NA for PT/OT/SLPH as telehealth neuro 07/21/21 @ 0930-Dr. Vanessa pulliam will callContin ue:-ASA 81 mg po q am-Lipitor 80 mg po qhs Oropharyng eal dysphagia 08743027 R13.12 Upgraded to regular diet Health Concerns [...] HEALTH NET PLAN (MEDICAID HMO) BLANCA Mcqueen [id number] Sherrie Mqcueen Notes Date Note Type Note Provider Name and Address Organization Details Recorded Time 07/08/2021 text/html Pt seen today for initial intake. 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 Initially hospitalized at [facility] 06/19-06/25/21 where she presented to the ED with severe headache and aphasia. Required nicardipine gtt for hypertensive emergency. Transferred to [facility] for acute rehab where she participated in PT/OT/LIPCOAT SPRAYER. 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 No SI/HI/AH/VH. RAVEN KRUSE PA-C [address] [place] [address], [address], [place], [address], [facility] [employer] 07/08/2021 22:11:31 07/13/2021 text/html ROS as noted [...] Prilosec Med changes prior to admit at [facility]:Abilify increasedClonidine addedMethadone decreasedAmbien d/c'd Discharge Medication List:Lac-hydrin [...] for subacute rehab. Participated and progressed in PT/OT/LIPCOAT SPRAYER (see their discharge summaries for details.) Was able to have diet upgraded to regular. Vitals monitored and stable. Requested to discharge home today. Home Health Certification: Dx as above; Seen this am by [facility]-registered Raven Kruse PA-C NPI# [id number]. [facility] for medication management and reconciliation and teaching; [...] to [facility]; will resume home health through [facility] Diet: regular, thin liquids Activity: rolling walker as tolerated Pt has no complaints. Vision less blurry. Feels stronger. Glad to be on regular diet. Looking forward to d/c. RAVEN KRUSE PA-C [address] [place] [address], [address], [place], [address], [facility] [employer] 07/13/2021 13:37:13 OBGyn Episode No OBEpisode recorded.
--- OUTSIDE RECORDS SUMMARY | 2025-07-05 16:18 | XMS_ITS | Clinical Summary ---
Author [facility] Address [address] [place] [address] Care Team Providers Care Poultry Scalder Name Role Phone Ivan Rankin DO Primary Care Provider [phone] Surgical History Surgery Date Site/Laterality Comments TUBAL LIGATION PROCEDURE: HISTORICAL TUBAL LIGATION VAGINAL DELIVERY PROCEDURE: CO VAGINAL DELIVERY ONLY; COMMENT: 4 ESOPHAGOGASTRODUODENOSCOPY 10/23/09 PROCEDURE: CO ESOPHAGOGASTRODUODENOSCOPY TRANSORAL DIAGNOSTIC; COMMENT: Corral's esophagus, H.H; [...] 2012 Zoster Vaccines (1 of 2) 2012 Depression Screening 09/12/2024 COVID-19 Vaccine (1 - 2023-2 5 season) 2025 Influenza Vaccine (#1) 2025 RSV Immunization Adult Patie nts (1 [...] Documents on File Type Date Recorded 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
== END 2025-07-05 14:22 | disposition home or self-care (01) ==
LOC: HO.LAB 14:21
PROVIDERS: PCP Internal Medicine; Visit Provider Internal Medicine
DX: M25.559 Pain in unspecified hip (principal)
CPT/HCPCS: 73502

== ENCOUNTER → 2025-07-05 14:25 | Outpatient (BNV) | payer OTHER, SELFPAY | PROVIDERS: PCP Internal Medicine; Visit Provider Radiology Diagnostic Radiology | DX: M25.551 Pain in right hip (principal) | CPT/HCPCS: 73502 ==